=== PATIENT | male | born 1935 | race Caucasian/White ===

== ENCOUNTER 2016-06-09 17:57 | Inpatient (IN) | payer MEDICARE, BC, OTHER ==
[~2016-06-09] VITALS: Ht 190.5 cm; Wt 79.6 kg
[~2016-06-09 17:57] MED LIST: /NEPHROTA PO; /TIOT18INH INH; ACET-654 PO; AMIO20TA PO; AMOX500C PO; ANOR1AER INH; ASPI1TAB PO; ASPI325T PO; ASPI325T28 PO; CEFT250T PO; CETI10TA PO; CETI5TA PO; CRES5TAB PO; DIGO0.12 PO; DUONSOL IN; DUONSOL NEB; EPOG2000 IJ; EPOG2000 IVP; FLAG500T PO; IPRASOL4 INH; MULT1TAB18 PO; OMEP20CA3 PO; PANT40TA2 PO; PHOS667C PO; PREV15CA PO; ROSU10TA PO; SPIR1CAP INH; SPIRIVA INH; SYMB16INH INH; SYMB80AE IN; TOPR25TA PO; TYLE325T5 PO; VENO20IN IV; VITA-121 PO; VITA200016 PO; VITA200038 PO; VITATAB11 PO; ZITH250T PO; [UNRECOGNIZED DRUG - OTHER] PO; zemplar IV
[2016-06-09 19:45] LABS: EOS # 0.2 K/mm3 (0.0-0.50); EOS % 3.9 % (0.0-3.0); LARGE UNSTAINED CELL # 0.1 K/mm3 (0.0-0.4); LARGE UNSTAINED CELL % 2.5 % (0.0-4.0); LYMPH # 0.6 K/mm3 (1.5-4.5); LYMPH % 10.8 % (24.0-44.0); MEAN CORPUSCULAR HGB CONC 31.2 g/dl (32.0-36.5); MEAN CORPUSCULAR VOLUME 86.6 fl (80.0-96.0); MONO # 0.4 K/mm3 (0.0-0.8); MONO % 7.6 % (0.0-5.0); NEUTROPHILS # 3.8 K/mm3 (1.8-7.7); NEUTROPHILS % 74.2 % (36.0-66.0); PLATELET COUNT, AUTOMATED 137 k/mm3 (150-450); RED CELL DISTRIBUTION WIDTH 16.3 % (11.5-14.5); WHITE BLOOD COUNT 5.1 K/mm3 (4.0-10.0)
[2016-06-09] MEDS ORDERED: AMIO20TA PO (19:49)
[2016-06-09] MEDS ORDERED: B COTAB5 PO (19:49)
[2016-06-09] MEDS ORDERED: CALC667T PO (19:49)
[2016-06-09] MEDS ORDERED: IPRASOL4 INH (19:49)
[2016-06-09] MEDS ORDERED: PANT40TA2 PO (19:50)
[2016-06-09 20:04] LABS: ALBUMIN 3.1 GM/DL (3.2-5.2); ALBUMIN/GLOBULIN RATIO 0.84 (1.00-1.93); ALKALINE PHOSPHATASE 184 U/L (45-117); ALT/SGPT 49 U/L (12-78); ANION GAP 10 MEQ/L (8-16); AST/SGOT 39 U/L (15-37); BILIRUBIN,DIRECT < 0.1 MG/DL (0.0-0.2); BILIRUBIN,TOTAL 0.3 MG/DL (0.2-1.0); BLOOD UREA NITROGEN 37 MG/DL (7-18); CALCIUM LEVEL 8.1 MG/DL (8.8-10.2); CARBON DIOXIDE LEVEL 33 MEQ/L (21-32); CHLORIDE LEVEL 101 MEQ/L (98-107); GLOMERULAR FILTRATION RATE 9.3 (>35); GLUCOSE, FASTING 122 MG/DL (83-110); POTASSIUM SERUM 4.4 MEQ/L (3.5-5.1); SODIUM LEVEL 144 MEQ/L (136-145); TOTAL PROTEIN 6.8 GM/DL (6.4-8.2)
--- NOTE | 2016-06-09 20:21 | REP ---
CHEST X-RAY, AP AND LATERAL: 06/09/2016. Comparison: Two-view chest 09/17/2015, 04/06/2015, 11/14/2013, CT abdomen showing lower chest 10/27/2013. Clinical history: Dyspnea. Findings. Lungs are hyperinflated. There is underlying interstitial fibrosis and some venous hypertension. Heavier fibrosis in the bases and there is lateral pleural thickening or pleural fluid along the right lateral chest wall similar to the multiple other prior studies and left CP angle is sharply defined while the right is slightly blunted as before. Heart is not grossly enlarged. The aorta is tortuous, ectatic and unchanged. There is pulmonary artery hypertension. Degenerative changes seen in the shoulders, AC joint and spine. Impression: 1. No cardiomegaly, but there is some venous hypertension, underlying fibrosis and heavier markings in the right than left base. Bibasilar patchy atelectasis or infiltrates, right greater than left. There is lateral pleural thickening/fluid on the right as seen on multiple prior studies. No definite left effusion. Signed by Eze Ahn MD 06/10/2016 05:48 P
[2016-06-10] VITALS (7 sets, daily range): BP systolic 112–141; BP diastolic 49–64
[2016-06-10] MEDS ORDERED: IPRATROPIUM 0.5MG/ALBUTEROL 2.5MG INH SOL UD 3ML (DUONEB)(J7620) INH PRN (00:30)
--- NOTE | 2016-06-10 01:16 | EDDOCDS ---
Physician Documentation [facility], [place] Name: Nj Chamberlain Age: 80 yrs Sex: Male : 1935 Arrival Date: 06/09/2016 Time: 17:57 Bed 14 Private MD: Stewart Everett Disposition: 06/09/16 20:56 Hospitalization ordered by Clare Wadsworth for Inpatient Admission. Preliminary diagnosis are Hemorrhage of anus and rectum, Acute combined systolic (congestive) and diastolic (congestive) heart failure. - Bed requested for PCU. - Status is Inpatient Admission. mgs - Condition is Stable. - Problem is an ongoing problem. - Symptoms are unchanged. Historical: - Allergies: Adhesives; Neosporin ([id number]); Zocor; - Home Meds: 1. [place] with Vit C 1 tab daily 2. amiodarone 200 mg Oral tab 1 tab once daily 3. aspirin 81 mg Oral tab 1 tab once daily 4. Crestor 10 mg Oral tab 1 tab once daily 5. DuoNeb 0.5 mg-3 mg(2.5 mg base)/3 mL Inhl nebu 3 mL 4 times per day 6. PhosLo 667 mg Oral cap 1 caps 3 times per day 7. anoro inhaler 8. Vitamin D3 2,000 unit oral cap 1 cap daily 9. esomeprazole magnesium 20 mg Oral cpDR 1 cap 2 times per day 10. Procrit Inj 11. vitamin d infusion - PMHx: Anemia; Atrial Fib; CAD; COPD; Degenerative disc disease; GERD; hyperlipidemia; Myocardial infarction; Osteoarthritis; Renal Failure with Dialysis; Sleep Apnea w/o CPAP; - PSHx: Carotid surgery; Cardiac stents; dialysis fistula; cardiac cath; Ablation, Cardiac; Tonsillectomy; - Social history: Smoking status: Patient/guardian denies using No barriers to communication noted, The patient speaks fluent Cypriot. - Family history: Not pertinent. - : The pt / caregiver states he / she is not on anticoagulants. Home medication list is obtained from the patient, [employer] import data. - Exposure Risk Screening:: None identified. Vital Signs: 06/09 17:59 BP 112 / 60; Pulse 79; Resp 18 S; Temp 98.3(O); Pulse Ox 95% on R/A; Weight 80.29 kg / gr2 177.01 lbs (R); Height 6 ft. 3 in. (190.50 cm) (R); Pain 2/10; 19:25 BP 126 / 61 (auto/); mgs 19:26 Pulse 66 MON; Pulse Ox 95% ; mgs 19:40 BP 128 / 56 (auto/); mgs 19:43 Pulse Ox 94% ; mgs 19:54 Pulse 56 MON; Pulse Ox 93% ; mgs 19:55 BP 122 / 59 (auto/); mgs 20:10 BP 124 / 58 (auto/); mgs 20:10 Pulse 54 MON; Pulse Ox 93% ; mgs 20:25 BP 122 / 60 (auto/); mgs 20:25 Pulse 54 MON; Pulse Ox 93% ; mgs 20:40 BP 117 / 56 (auto/); mgs 20:40 Pulse 52 MON; Pulse Ox 93% ; mgs 20:55 BP 133 / 61 (auto/); mgs 20:55 Pulse 52 MON; Pulse Ox 92% ; mgs 21:10 BP 126 / 61 (auto/); mgs 21:10 Pulse 50 MON; Pulse Ox 93% ; mgs 21:25 BP 127 / 59 (auto/); mgs 21:25 Pulse 50 MON; Pulse Ox 93% ; mgs 21:40 BP 123 / 58 (auto/); mgs 21:40 Pulse 50 MON; Pulse Ox 92% ; mgs 21:55 BP 113 / 56 (auto/); mgs 21:55 Pulse 50 MON; Pulse Ox 93% ; mgs 22:10 BP 116 / 56 (auto/); mgs 22:10 Pulse 50 MON; Pulse Ox 93% ; mgs 22:25 BP 138 / 65 (auto/); mgs 22:25 Pulse 50 MON; Pulse Ox 93% ; mgs 22:40 Pulse 50 MON; Pulse Ox 97% ; mgs 22:40 BP 118 / 56 (auto/); mgs 22:55 BP 129 / 61 (auto/); mgs 22:55 Pulse 50 MON; Pulse Ox 97% ; mgs 23:10 BP 135 / 60 (auto/); mgs 23:10 Pulse 50 MON; Pulse Ox 96% ; mgs 23:25 BP 116 / 56 (auto/); mgs 23:25 Pulse 52 MON; Pulse Ox 97% ; mgs 23:40 BP 123 / 54 (auto/); mgs 23:40 Pulse 52 MON; Pulse Ox 97% ; mgs 23:55 BP 126 / 58 (auto/); mgs 23:55 Pulse 48 MON; Pulse Ox 95% ; mgs 06/10 00:10 BP 137 / 65 (auto/); mgs 00:10 Pulse 50 MON; Pulse Ox 95% ; mgs 00:25 BP 134 / 62 (auto/); mgs 00:25 Pulse 50 MON; Pulse Ox 96% ; mgs 00:34 BP 134 / 62 RA Supine (auto/reg); Pulse 52 MON; Resp 18 S; Temp 97.0(T); Pulse Ox 97% cln on R/A; Pain 0/10; 00:40 BP 127 / 59 (auto/); mgs 00:40 Pulse 50 MON; Pulse Ox 83% ; mgs 00:55 BP 133 / 62 (auto/); mgs 00:55 Pulse 48 MON; Pulse Ox 96% ; mgs 01:10 BP 109 / 48 (auto/); mgs 01:10 Pulse 48 MON; Pulse Ox 95% ; mgs 06/09 17:59 Body Mass Index 22.12 (80.29 kg, 190.50 cm) gr2 MDM: 06/09 19:14 -Blood Culture (Adults Only), peripheral from different site, or from device/port/PICC ke etc. if present ordered. 19:14 Hose Finisher/Pulse Ox/q 15 min VS ordered. ke 19:14 IV Saline Lock ordered. ke 19:14 Oxygen at 4L/Min NC or Home dosage ordered. ke 19:14 Rhythm Strip to chart ordered. ke 19:14 NS 0.9% 1000 ml IV at 100 mL/hr continuous ordered. ke 19:15 Type & Screen Ordered. EDMS 19:15 Basic Metabolic Profile Ordered. EDMS 19:15 CBC with Diff Ordered. EDMS 19:15 Cardiac Injury Profile Ordered. EDMS 19:15 Troponin Ordered. EDMS 19:15 PT/INR Ordered. EDMS 19:15 Liver Profile Ordered. EDMS 19:15 BNP Ordered. EDMS 19:16 -Blood Culture Ordered. EDMS 19:16 Chest, 2 View (pa\E\lat) Ordered. EDMS 19:16 ECG WITH READING ER PHYS+CARDIAG ordered. EDMS 19:18 -Blood Culture (Adults Only), peripheral from different site, or from device/port/PICC ml3 etc. if present complete. 19:19 BLOOD CULTURES Ordered. EDMS 19:19 BED REQUEST+ADM ordered. EDMS 20:37 Basic Metabolic Profile Reviewed. ke 20:37 CBC with Diff Reviewed. ke 20:37 Liver Profile Reviewed. ke 20:37 BNP Reviewed. ke 20:37 Cardiac Injury Profile Reviewed. ke 20:37 Troponin Reviewed. ke 20:37 PT/INR Reviewed. ke 20:37 Type & Screen Reviewed. ke 23:24 Written Provider Order was scanned into [employer] and attached to record. ml3 23:35 Financial registration complete. hs2 23:51 [facility] Payment Agreement was scanned into [employer] and attached to record. hs2 06/10 00:02 Admission / Observation Status ordered. EDMS 00:25 CLEAR LIQUIDS DIET ordered. EDMS 00:26 HEMOGLOBIN & HEMATOCRIT Ordered. EDMS 00:26 COMPLETE BLOOD COUNT Ordered. EDMS 00:26 RENAL PROFILE Ordered. EDMS 00:26 HEMOGLOBIN & HEMATOCRIT Ordered. EDMS 00:26 HEMOGLOBIN & HEMATOCRIT Ordered. EDMS 00:26 HEMOGLOBIN & HEMATOCRIT Ordered. EDMS 00:26 CARDIAC MARKER PANEL Ordered. EDMS 00:26 CARDIAC MARKER PANEL Ordered. EDMS Administered Medications: Discontinued: NS 0.9% 1000 ml IV at 100 mL/hr continuous 06/09 20:00 Drug: NS 0.9% 1000 ml [sodium chloride 0.9 % intravenous solution] Route: IV; Rate: 100 mgs mL/hr; Site: right antecubital; Signatures: Dispatcher [employer] EDWA Lizzie Flynn RN RN dls Elsner, Karl, FNP CREDIT RISK MODELER Tamy Romeo, Software Test Developer Unit ml3 Faisal Fabian,APOORVA RN mgs Estela Sanders, Reg Reg hs2 The chart was reviewed and I authenticate all verbal orders and agree with the evaluation and treatment provided.Attachments: 23:24 Written Provider Order ml3 23:51 [facility] Payment Agreement hs2 MTDD
--- NOTE | 2016-06-10 01:16 | HPEPDOC ---
General Date of Admission Jun 10, 2016 at 00:00 Chief Complaint The patient is a 80-year-old male admitted with a reason for visit of Bright Red Blood Per Rectum. Source: Patient Exam Limitations: No limitations History of Present Illness PCP: Stewart Everett in [facility] Nephrology: [place] Cardiology: [facility] on [address] Mr. Chamberlain has not been feeling well since approximately last Thursday. He has been suffering from generalized malaise and a nonproductive cough. He does state that his cough and shortness of breath gets worse with laying down, and ever since his cough started he is also woken up during the night a few times gasping for air. This continued through the weekend, he still presented for dialysis earlier this morning which he states when well. 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 En route to the hospital he decided to stop by home where he had a completely liquid bowel movement, which as it turns out was all blood. Since he was already on his way to the emergency department, he also presents for acute GI bleed. 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 He has had GI bleeds in the past, but these have never been so severe as the one today. He has not had a bowel movement since approximately 4 PM, his vitals are stable, and his H&H at this time is one of the best that he has had in years. Home Medications Scheduled (Anoro Ellipta 62.5-25 Mcg/INH) 1 Aer Aer 1 AER INH DAILY (Reported) Amiodarone HCl (Amiodarone HCl) 200 Mg Tab 200 MG PO DAILY (Reported) Aspirin (Aspirin 81) 81 Mg Tab 81 MG PO QHS (Reported) Calcium Acetate (Calcium Acetate) 667 Mg Tab 667 MG PO WM (Reported) Cholecalciferol (Vitamin D-3) 2,000 Unit Tab 2,000 UNIT PO DAILY (Reported) Epoetin Sandeep (Epogen) 2,000 Unit/Ml Inj 1,000 UNIT IJ 1XWK (Reported) Pantoprazole Sodium (Pantoprazole Sodium) 40 Mg Tab 40 MG PO BID (Reported) Rosuvastatin (Crestor) 10 Mg Tab 10 MG PO QHS (Reported) Vitamin B Complex/Vit C (B Complex/C) 1 Tab Tab 1 TAB PO DAILY (Reported) Scheduled PRN Albuterol/Ipratropium (Ipratropium [place]/Albut 0.5-2.5 (3) mg/3Ml) 1 Cecilia Cecilia 1 CECILIA INH QID PRN PRN SHORTNESS OF BREATH (Reported) Allergies Coded Allergies: Latex (Verified Allergy, Unknown, 02/07/16) Aminoglycosides (Verified Adverse Reaction, Mild, IRRITATES SKIN, 08/14/12) Bacitracin (Verified Adverse Reaction, Mild, IRRITATES SKIN, 08/14/12) Neomycin (Verified Adverse Reaction, Mild, IRRITATES SKIN, 08/14/12) Polymyxin B (Verified Adverse Reaction, Mild, IRRITATES SKIN, 08/14/12) Simvastatin (Verified Adverse Reaction, Mild, DOES NOT FEEL GOOD, 09/07/13) Past Medical History Medical History End-stage renal disease on dialysis Anemia of chronic disease with as needed Procrit injections Known coronary artery disease COPD "Aortic valve problems" Degenerative disc disease GERD Hyperlipidemia History of silent myocardial infarction Osteoarthritis Sleep apnea, but refuses to wear CPAP Surgical History Carotid endarterectomy Cardiac catheterization with Cardiac stents Dialysis fistula Cardiac ablation for atrial fibrillation with RVR Tonsillectomy Bilateral cataracts Family History Family History Mother at the age of 83 from CHF, father at the age of 48 because he had what was suspected to be a thyroid tumor, he was started on a experimental treatment that ended in his demise. He has 2 sisters, both of whom had lung diseases. He has one brother who at the age of 85 who also is on dialysis and had an ileostomy. Social History * Smoker: former Smoker (quit in 2012, prior to that he smoked for 60+ years approximately 2 packs per day) Alcohol: rarely Drugs: denies Recent Travel/Sick Contacts: Denies: Recent travel Psychosocial History: No pertinent psych hx Social History He lives at home with his , 2 dogs, and one cat. He does not have any birds. Review of Symptoms Constitutional: Reports: Fatigue, Malaise, Night Sweats, Weakness, Denies: Chills, Fever Eyes: Denies: Pain, Vision change Skin: Denies: Breakdown, Lesions, Rash Pulmonary: Reports: Cough (nonproductive), Dyspnea Cardiovascular: Reports: Edema (chronically, this comes and goes as he gets dialysis), Orthopnea, Paroxysmal Noc. Dyspnea, Denies: Chest Pain, Lt Headedness, Palpitations Gastrointestinal: Denies: Abdominal Pain, Diarrhea, Nausea, Vomiting Genitourinary: Denies: Dysuria, Frequency, Incontinence, Retention Hematologic: Denies: Bleeding Excessively, Bruising Neurological: Denies: Change in speech, Confusion, Numbness, Weakness Psych: Reports: Mood Normal, Denies: Depression, Memory Issues Physical Examination General Exam: Positive: Alert, Cooperative, No Acute Distress Eye Exam: Positive: Conjunctiva & lids normal, EOMI, PERRLA, Negative: Sclera icteric ENT Exam: Positive: Atraumatic, Mucous membr. moist/pink, Other ENT (upper and lower dentures), Pharynx Normal Neck Exam: Positive: JVD, Supple, Negative: thyromegaly Chest Exam: Positive: Rales (at the bases) Heart Exam: Positive: Irregular Rhythm, Murmurs (systolic and diastolic murmurs ), Rate Normal Abdomen Exam: Positive: Normal bowel sounds, Soft, Negative: Hepatospenomegaly Extremity Exam: Positive: Normal pulses, Negative: Clubbing, Cyanosis, Edema Skin Exam: Positive: Nl turgor and temperature, Negative: Breakdown, Lesion Psych Exam: Positive: Mental status NL, Mood NL, Oriented x 3 Vital Signs Blood pressure 112/60, pulse 79, respirations 18, temperature 98.3, pulse ox is 95% on room air, weight 80 kg, height 6 feet 3 inches, body mass index 22 Laboratory Data Labs 24H Laboratory Tests 2 06/09/16 19:26: Aspartate Amino Transf (AST/SGOT) 39H, Alanine Aminotransferase (ALT/SGPT) 49, Alkaline Phosphatase 184H, Total Bilirubin 0.3, Direct Bilirubin < 0.1, Albumin 3.1L, Albumin/Globulin Ratio 0.84L, Anion Gap 10, B-Type Natriuretic Peptide 1560H, White Blood Count 5.1, Red Blood Count 4.50, Hemoglobin 12.1L, Hematocrit 39.0L, Mean Corpuscular Volume 86.6, Mean Corpuscular Hemoglobin 27.0 , Mean Corpuscular Hemoglobin Concent 31.2L, Red Cell Distribution Width 16.3H, Platelet Count 137L, Neutrophils (%) (Auto) 74.2H, Lymphocytes (%) (Auto) 10.8L , Monocytes (%) (Auto) 7.6H, Eosinophils (%) (Auto) 3.9H, Basophils (%) (Auto) 1.0, Neutrophils # (Auto) 3.8, Lymphocytes # (Auto) 0.6L, Monocytes # (Auto) 0.4 , Eosinophils # (Auto) 0.2, Basophils # (Auto) 0.0, Calcium Level 8.1L, Creatine Kinase MB 2.4, Creatine Kinase MB Relative Index 3.75, Glomerular Filtration Rate 9.3L, Large Unclassified Cells # 0.1, Large Unclassified Cells % 2.5, Prothromb Time International Ratio 1.00, Prothrombin Time 13.3, Total Creatine Kinase 64, Total Protein 6.8, Troponin I 0.04 CBC/BMP Laboratory Tests 06/09/16 19:26 Red Blood Count 4.50, Mean Corpuscular Volume 86.6, Mean Corpuscular Hemoglobin 27.0, Mean Corpuscular Hemoglobin Concent 31.2 L, Red Cell Distribution Width 16.3 H, Neutrophils (%) (Auto) 74.2 H, Lymphocytes (%) (Auto) 10.8 L, Monocytes (%) (Auto) 7.6 H, Eosinophils (%) (Auto) 3.9 H, Basophils (%) (Auto) 1.0, Neutrophils # (Auto) 3.8, Lymphocytes # (Auto) 0.6 L, Monocytes # (Auto) 0.4, Eosinophils # (Auto) 0.2, Basophils # (Auto) 0.0 Microbiology Microbiology 06/09/16 Blood Culture, Received Pending 06/09/16 Blood Culture, Received Pending (1) BRBPR (bright red blood per rectum) Status: Acute (2) Fluid overload Status: Acute (3) ESRD (end stage renal disease) on dialysis Status: Chronic (4) Systolic and diastolic CHF, chronic Status: Chronic (5) COPD (chronic obstructive pulmonary disease) Status: Chronic (6) Hyperlipidemia Status: Chronic (7) Afib Status: Chronic (8) Anemia Status: Chronic Plan / VTE VTE Prophylaxis Ordered?: Yes (teds and sequentials) Plan Plan Will admit the patient to telemetry. In regards to his episode of bright red blood per rectum, we'll cycle his troponins, check H&H every 6, place him on twice a day IV Protonix, we have very spoken with Dr. Lucas harris who will see and evaluate the patient, he suspects that he may be able to do a colonoscopy on Thursday. Because he has not had any additional episodes, and his hematocrit is good, and his blood pressure is holding up, we will allow him to attempt a clear liquid diet. In regard to his fluid overload, we will be unable to diuresis this patient as he is on dialysis, therefore recommend consult to nephrology in the morning. I see no need for urgent or emergent dialysis at this time. Given that he does not have a fever, productive cough, or leukocytosis this does not appear to be a pneumonia, therefore empiric antibiotics will not be administered at this time. He is full code. GME ATTESTATION GME ATTESTATION My preceptor for this patient encounter was physically present in the building during the encounter and was fully available. As needed, all aspects of the patient interview, examination, medical decision making process, and medical care plan development were reviewed and approved by the preceptor. Preceptor is aware and concurs with the plan as stated in the body of this note and will attest to such by his/her cosignature. ATTENDING NOTE I, Clare Wadsworth, have seen and examined the above patient and agree with the assessment and plan as documented by Dr. Cisse. The patient will be admitted as an inpatient to the service of Dr. Rajan. YELITZA CISSE DO Jun 10, 2016 01:16 CLARE WADSWORTH Jun 10, 2016 02:57
--- NOTE | 2016-06-10 01:17 | EDDOCDS ---
Nurse's Notes [facility] Name: Nj Chamberlain Age: 80 yrs Sex: Male : 1935 Arrival Date: 06/09/2016 Time: 17:57 Bed 14 Private MD: Stewart Everett Diagnosis: Hemorrhage of anus and rectum;Acute combined systolic (congestive) and diastolic (congestive) heart failure Presentation: 06/09 18:03 Presenting complaint: Patient states: Pt presents with onset of rectal bleeding this dls afternoon lots of blood in toilet bowl dark red. Adult Sepsis Screening: The patient does not have new or worsening altered mentation. Patient's respiratory rate is less than 22. Systolic blood pressure is greater than 100. Patient has a qSOFA score of 0- Negative Sepsis Screen. Suicide/Homicide risk assessment- the patient denies having any suicidal and/or homicidal ideations and does not present with any other emotional, behavioral or mental health complaints. Status: Patient is not a electric range servicer or dependent. Transition of care: patient was not received from another setting of care. 18:03 Acuity: SHANNAN Level 3 dls 18:03 Method Of Arrival: Wheelchair dls 18:27 Red Flag criteria, patient assessed and taken directly to a bed. dls Triage Assessment: 18:10 General: Appears uncomfortable. Pain: Denies pain. dls Historical: - Allergies: Adhesives; Neosporin ([id number]); Zocor; - Home Meds: 1. [place] with Vit C 1 tab daily 2. amiodarone 200 mg Oral tab 1 tab once daily 3. aspirin 81 mg Oral tab 1 tab once daily 4. Crestor 10 mg Oral tab 1 tab once daily 5. DuoNeb 0.5 mg-3 mg(2.5 mg base)/3 mL Inhl nebu 3 mL 4 times per day 6. PhosLo 667 mg Oral cap 1 caps 3 times per day 7. anoro inhaler 8. Vitamin D3 2,000 unit oral cap 1 cap daily 9. esomeprazole magnesium 20 mg Oral cpDR 1 cap 2 times per day 10. Procrit Inj 11. vitamin d infusion - PMHx: Anemia; Atrial Fib; CAD; COPD; Degenerative disc disease; GERD; hyperlipidemia; Myocardial infarction; Osteoarthritis; Renal Failure with Dialysis; Sleep Apnea w/o CPAP; - PSHx: Carotid surgery; Cardiac stents; dialysis fistula; cardiac cath; Ablation, Cardiac; Tonsillectomy; - Social history: Smoking status: Patient/guardian denies using No barriers to communication noted, The patient speaks fluent [place]. - Family history: Not pertinent. - : The pt / caregiver states he / she is not on anticoagulants. Home medication list is obtained from the patient, [employer] import data. - Exposure Risk Screening:: None identified. Screenin:03 Screening information is obtained from the patient. Fall risk: At risk due to age. mgs Assistance ADL's: requires no assistance with activities of daily living. Abuse/DV Screen: The patient / caregiver reports he/she is: not in a situation that causes fear, pain or injury. Nutritional screening: No deficits noted. Advance Directives: Currently, there is a health care proxy, Jennifer Chamberlain, . There is an active DNR order but there is no copy available at this time. home support is adequate. Assessment: 19:04 Adult Sepsis Screening: The patient does not have new or worsening altered mentation. mgs Patient's respiratory rate is less than 22. Systolic blood pressure is less than or equal to 100 (1 point). Patient has a qSOFA score of 1- Negative Sepsis Screen. General: Appears in no apparent distress, Behavior is appropriate for age, cooperative. Pain: Denies pain. Neurological: Level of Consciousness is awake, alert, Oriented to person, place, time. Cardiovascular: Capillary refill < 3 seconds Heart tones S1 S2 present Murmur present. Respiratory: Airway is patent Respiratory effort is even, unlabored, Respiratory pattern is regular, symmetrical. Derm: Skin is intact. 20:03 General: Appears in no apparent distress, Behavior is appropriate for age, cooperative. mgs Pain: Denies pain. Neurological: Level of Consciousness is awake, alert, Oriented to person, place, time. Cardiovascular: Capillary refill < 3 seconds. Respiratory: Airway is patent Respiratory effort is even, unlabored, Respiratory pattern is regular, symmetrical. Derm: Skin is intact. 20:49 General: Appears in no apparent distress, Behavior is appropriate for age, cooperative. mgs Neurological: Level of Consciousness is awake, alert, Oriented to person, place, time. Cardiovascular: Capillary refill < 3 seconds. Respiratory: Airway is patent Respiratory effort is even, unlabored, Respiratory pattern is regular, symmetrical. 20:50 General: Patient has AV fistula on left upper arm that is positive for bruit and thrill.mgs 21:48 General: Appears in no apparent distress, Behavior is appropriate for age, cooperative. mgs Neurological: Level of Consciousness is awake, alert. Cardiovascular: Capillary refill < 3 seconds. Respiratory: Airway is patent Respiratory effort is even, unlabored, Respiratory pattern is regular, symmetrical. Derm: Skin is intact. 06/10 00:15 General: Appears in no apparent distress, to be sleeping. Cardiovascular: Capillary mgs refill < 3 seconds. Respiratory: Airway is patent Respiratory effort is even, unlabored, Respiratory pattern is regular, symmetrical. Derm: Skin is intact. Vital Signs: 06/09 17:59 BP 112 / 60; Pulse 79; Resp 18 S; Temp 98.3(O); Pulse Ox 95% on R/A; Weight 80.29 kg gr2 (R); Height 6 ft. 3 in. (190.50 cm) (R); Pain 2/10; 19:25 BP 126 / 61 (auto/); mgs 19:26 Pulse 66 MON; Pulse Ox 95% ; mgs 19:40 BP 128 / 56 (auto/); mgs 19:43 Pulse Ox 94% ; mgs 19:54 Pulse 56 MON; Pulse Ox 93% ; mgs 19:55 BP 122 / 59 (auto/); mgs 20:10 BP 124 / 58 (auto/); mgs 20:10 Pulse 54 MON; Pulse Ox 93% ; mgs 20:25 BP 122 / 60 (auto/); mgs 20:25 Pulse 54 MON; Pulse Ox 93% ; mgs 20:40 BP 117 / 56 (auto/); mgs 20:40 Pulse 52 MON; Pulse Ox 93% ; mgs 20:55 BP 133 / 61 (auto/); mgs 20:55 Pulse 52 MON; Pulse Ox 92% ; mgs 21:10 BP 126 / 61 (auto/); mgs 21:10 Pulse 50 MON; Pulse Ox 93% ; mgs 21:25 BP 127 / 59 (auto/); mgs 21:25 Pulse 50 MON; Pulse Ox 93% ; mgs 21:40 BP 123 / 58 (auto/); mgs 21:40 Pulse 50 MON; Pulse Ox 92% ; mgs 21:55 BP 113 / 56 (auto/); mgs 21:55 Pulse 50 MON; Pulse Ox 93% ; mgs 22:10 BP 116 / 56 (auto/); mgs 22:10 Pulse 50 MON; Pulse Ox 93% ; mgs 22:25 BP 138 / 65 (auto/); mgs 22:25 Pulse 50 MON; Pulse Ox 93% ; mgs 22:40 Pulse 50 MON; Pulse Ox 97% ; mgs 22:40 BP 118 / 56 (auto/); mgs 22:55 BP 129 / 61 (auto/); mgs 22:55 Pulse 50 MON; Pulse Ox 97% ; mgs 23:10 BP 135 / 60 (auto/); mgs 23:10 Pulse 50 MON; Pulse Ox 96% ; mgs 23:25 BP 116 / 56 (auto/); mgs 23:25 Pulse 52 MON; Pulse Ox 97% ; mgs 23:40 BP 123 / 54 (auto/); mgs 23:40 Pulse 52 MON; Pulse Ox 97% ; mgs 23:55 BP 126 / 58 (auto/); mgs 23:55 Pulse 48 MON; Pulse Ox 95% ; mgs 06/10 00:10 BP 137 / 65 (auto/); mgs 00:10 Pulse 50 MON; Pulse Ox 95% ; mgs 00:25 BP 134 / 62 (auto/); mgs 00:25 Pulse 50 MON; Pulse Ox 96% ; mgs 00:34 BP 134 / 62 RA Supine (auto/reg); Pulse 52 MON; Resp 18 S; Temp 97.0(T); Pulse Ox 97% cln on R/A; Pain 0/10; 00:40 BP 127 / 59 (auto/); mgs 00:40 Pulse 50 MON; Pulse Ox 83% ; mgs 00:55 BP 133 / 62 (auto/); mgs 00:55 Pulse 48 MON; Pulse Ox 96% ; mgs 01:10 BP 109 / 48 (auto/); mgs 01:10 Pulse 48 MON; Pulse Ox 95% ; mgs 06/09 17:59 Body Mass Index 22.12 (80.29 kg, 190.50 cm) gr2 Vitals: 06/09 17:59 Log In Time: June 09, 2016 at 17:59. RN notified that patient meets Red Flag gr2 criteria. ED Course: 17:59 Patient visited by Jas Merino. gr2 17:59 Stewart Everett is Private Physician. gr2 17:59 Patient moved to Waiting gr2 18:01 Patient visited by Jas Merino. gr2 18:02 Patient visited by Jas Merino. gr2 18:02 Patient visited by Jas Merino. gr2 18:02 Patient moved to Pre RCE gr2 18:05 Triage Initiated dls 18:11 Patient moved to 14 dls 18:44 Patient visited by Anisha Santana RN. mk4 18:54 George Mcdowell FNP is PHCP. ke 18:54 Patient visited by George Mcdowell FNP. ke 18:54 Patient visited by George Mcdowell FNP. ke 18:56 Faisal Fabian,APOORVA is Primary Nurse. mgs 19:06 Patient visited by Faisal Fabian RN. mgs 19:20 Patient moved to Radiology sim 19:22 Patient visited by Narcisa Pozo PCA. cln 19:22 EKG done. (by ED staff). Reviewed by George OCASIO. cln 19:28 BNP Sent. mgs 19:28 Liver Profile Sent. mgs 19:28 Type & Screen Sent. mgs 19:28 PT/INR Sent. mgs 19:28 -Blood Culture Sent. mgs 19:28 Basic Metabolic Profile Sent. mgs 19:28 CBC with Diff Sent. mgs 19:28 Cardiac Injury Profile Sent. mgs 19:28 Troponin Sent. mgs 19:40 Patient moved to 14 sim 19:52 Patient visited by George Mcdowell FNP. ke 19:58 BLOOD CULTURES Sent. cln 20:03 Patient visited by Faisal Fabian RN. mgs 20:40 Patient visited by George Mcdowell FNP. ke 20:51 Patient visited by Faisal Fabian RN. mgs 20:53 Clare Wadsworth is Hospitalizing Provider. ke 20:53 Chest, 2 View (pa\E\lat) Returned. EDMS 22:26 Patient visited by Faisal Fabian RN. mgs 23:24 Written Provider Order was scanned into [employer] and attached to record. ml3 23:51 [facility] Payment Agreement was scanned into [employer] and attached to record. hs2 06/10 00:15 Patient visited by Faisal Fabian RN. mgs 00:34 Patient visited by Narcisa Pozo PCA. cln 01:11 Inserted saline lock: 20 gauge in right antecubital area and blood collected. The mgs patient tolerated the procedure well. No procedures done that require assistance. 01:12 The patient / caregiver is instructed regarding the plan of care and ED course. mgs Administered Medications: Discontinued: NS 0.9% 1000 ml IV at 100 mL/hr continuous 06/09 20:00 Drug: NS 0.9% 1000 ml [sodium chloride 0.9 % intravenous solution] Route: IV; Rate: 100 mgs mL/hr; Site: right antecubital; Order Results: Lab Order: Basic Metabolic Profile; SPEC'M 06/09/16 19:26 Test: GLUCOSE, FASTING; Value: 122; Range: 83-110; Abnormal: Above high normal; Units: MG/DL; Status: F Test: BLOOD UREA NITROGEN; Value: 37; Range: 7-18; Abnormal: Above high normal; Units: MG/DL; Status: F Test: CREATININE FOR GFR; Value: 6.20; Range: 0.70-1.30; Abnormal: Above high normal; Units: MG/DL; Status: F Test: GLOMERULAR FILTRATION RATE; Value: 9.3; Range: >35; Abnormal: Below low normal; Status: F Test: SODIUM LEVEL; Value: 144; Range: 136-145; Units: MEQ/L; Status: F Test: POTASSIUM SERUM; Value: 4.4; Range: 3.5-5.1; Units: MEQ/L; Status: F Test: CHLORIDE LEVEL; Value: 101; Range: 98-107; Units: MEQ/L; Status: F Test: CARBON DIOXIDE LEVEL; Value: 33; Range: 21-32; Abnormal: Above high normal; Units: MEQ/L; Status: F Test: ANION GAP; Value: 10; Range: 8-16; Units: MEQ/L; Status: F Test: CALCIUM LEVEL; Value: 8.1; Range: 8.8-10.2; Abnormal: Below low normal; Units: MG/DL; Status: F Test Note: ; Units are mL/min/1.73 m2 Chronic Kidney Disease Staging per NKF: Stage I & II GFR >=60 Normal to Mildly Decreased Stage III GFR 30-59 Moderately Decreased Stage IV GFR 15-29 Severely Decreased Stage V GFR <15 Very Little GFR Left ESRD GFR <15 on BAG LOADER MACHINE OPERATOR Lab Order: CBC with Diff; SPEC'M 06/09/16 19:26 Test: WHITE BLOOD COUNT; Value: 5.1; Range: 4.0-10.0; Units: K/mm3; Status: F Test: RED BLOOD COUNT; Value: 4.50; Range: 4.30-6.10; Units: M/mm3; Status: F Test: HEMOGLOBIN; Value: 12.1; Range: 14.0-18.0; Abnormal: Below low normal; Units: g/dl; Status: F Test: HEMATOCRIT; Value: 39.0; Range: 42.0-52.0; Abnormal: Below low normal; Units: %; Status: F Test: MEAN CORPUSCULAR VOLUME; Value: 86.6; Range: 80.0-96.0; Units: fl; Status: F Test: MEAN CORPUSCULAR HEMOGLOBIN; Value: 27.0; Range: 27.0-33.0; Units: pg; Status: F Test: MEAN CORPUSCULAR HGB CONC; Value: 31.2; Range: 32.0-36.5; Abnormal: Below low normal; Units: g/dl; Status: F Test: RED CELL DISTRIBUTION WIDTH; Value: 16.3; Range: 11.5-14.5; Abnormal: Above high normal; Units: %; Status: F Test: PLATELET COUNT, AUTOMATED; Value: 137; Range: 150-450; Abnormal: Below low normal; Units: k/mm3; Status: F Test: NEUTROPHILS %; Value: 74.2; Range: 36.0-66.0; Abnormal: Above high normal; Units: %; Status: F Test: LYMPH %; Value: 10.8; Range: 24.0-44.0; Abnormal: Below low normal; Units: %; Status: F Test: MONO %; Value: 7.6; Range: 0.0-5.0; Abnormal: Above high normal; Units: %; Status: F Test: EOS %; Value: 3.9; Range: 0.0-3.0; Abnormal: Above high normal; Units: %; Status: F Test: BASO %; Value: 1.0; Range: 0.0-1.0; Units: %; Status: F Test: LARGE UNSTAINED CELL %; Value: 2.5; Range: 0.0-4.0; Units: %; Status: F Test: NEUTROPHILS #; Value: 3.8; Range: 1.8-7.7; Units: K/mm3; Status: F Test: LYMPH #; Value: 0.6; Range: 1.5-4.5; Abnormal: Below low normal; Units: K/mm3; Status: F Test: MONO #; Value: 0.4; Range: 0.0-0.8; Units: K/mm3; Status: F Test: EOS #; Value: 0.2; Range: 0.0-0.50; Units: K/mm3; Status: F Test: BASO #; Value: 0.0; Range: 0.0-0.2; Units: K/mm3; Status: F Test: LARGE UNSTAINED CELL #; Value: 0.1; Range: 0.0-0.4; Units: K/mm3; Status: F Lab Order: Cardiac Injury Profile; SPEC'M 06/09/16 19:26 Test: CPK CREATINE PHOSPHOKINASE; Value: 64; Range: 39-308; Units: U/L; Status: F Test: CK-MB VALUE MASS; Value: 2.4; Range: 0.0-3.6; Units: NG/ML; Status: F Test: MB/CK RELATIVE INDEX; Value: 3.75; Range: < OR =4; Status: F Test Note: ; DIAGNOSIS CRITERIA MMB ng/ml Relative Index (RI) NON-AMI < or = 5 N/A SALAZAR ZONE > 5 < or = 4 AMI > 5 > 4 Lab Order: Troponin; SPEC'M 06/09/16 19:26 Test: TROPONIN I; Value: 0.04; Range: < 0.10; Units: NG/ML; Status: F Test Note: ; Troponin I Reference Interval for [employer] LOCI: 99th Percentile= 0.00-0.045 ng/ml Risk Stratification: <= 0.10 ng/ml Decreased Risk for Adverse Clinical Events. 0.10-1.50 ng/ml Increased Risk for Adverse Clinical Events. Evaluation of additional criterion and/or repeat testing in 2-6 hours is suggested to rule out myocardial damage. >= 1.50 ng/ml Indicative of Myocardial Injury. Lab Order: PT/INR; [facility] 06/09/16 19: Test: PROTHROMBIN TIME; Value: 13.3; Range: 12.3-14.5; Units: SECONDS; Status: F Test: INR; Value: 1.00; Status: F Test Note: ; THERAPUTIC HUMAN INR VALUES INDICATIONS NORMAL RANGES PROPHYLAXIS/TREATMENT OF: VENOUS THROMBOSIS 2.0-3.0 PULMONARY EMBOLISM 2.0-3.0 PREVENTION OF SYSTEMIC EMBOLISM FROM: TISSUE HEART VALVES 2.0-3.0 ACUTE MYOCARDIAL INFARCTION 2.0-3.0 VALVULAR HEART DISEASE 2.0-3.0 ATRIAL FIBRILLATION 2.0-3.0 MECHANICAL VALVES(HIGH RISK) 2.5-3.5 RECURRENT MYOCARDIAL INFARCTION 2.5-3.5 Lab Order: Type & Screen; [facility] 06/09/16 19: Test: BLOOD TYPE; Value: A NEG; Status: F Test: AB SCREEN (INDIRECT SOPHIA)GEL; Value: NEGATIVE; Status: F Lab Order: Liver Profile; [facility] 06/09/16 19: Test: AST/SGOT; Value: 39; Range: 15-37; Abnormal: Above high normal; Units: U/L; Status: F Test: ALT/SGPT; Value: 49; Range: 12-78; Units: U/L; Status: F Test: ALKALINE PHOSPHATASE; Value: 184; Range: 45-117; Abnormal: Above high normal; Units: U/L; Status: F Test: BILIRUBIN,TOTAL; Value: 0.3; Range: 0.2-1.0; Units: MG/DL; Status: F Test: BILIRUBIN,DIRECT; Value: < 0.1; Range: 0.0-0.2; Units: MG/DL; Status: F Test: TOTAL PROTEIN; Value: 6.8; Range: 6.4-8.2; Units: GM/DL; Status: F Test: ALBUMIN; Value: 3.1; Range: 3.2-5.2; Abnormal: Below low normal; Units: GM/DL; Status: F Test: ALBUMIN/GLOBULIN RATIO; Value: 0.84; Range: 1.00-1.93; Abnormal: Below low normal; Status: F Lab Order: BNP; SPEC'M 06/09/16 19:26 Test: BRAIN NATRIURETIC PEPTIDE; Value: 1560; Range: <100; Abnormal: Above high normal; Units: PG/ML; Status: F Lab Order: HEMOGLOBIN & HEMATOCRIT; SPEC'M 06/10/16 00:40 Test: HEMOGLOBIN; Value: 11.4; Range: 14.0-18.0; Abnormal: Below low normal; Units: g/dl; Status: F Test: HEMATOCRIT; Value: 36.1; Range: 42.0-52.0; Abnormal: Below low normal; Units: %; Status: F Radiology Order: Chest, 2 View (pa\E\lat) Test: Chest, 2 View (pa\E\lat) REASON FOR EXAMINATION: Shortness of Breath; CHEST X-RAY, AP AND LATERAL: 06/09/2016.; ; Comparison: Two-view chest 09/17/2015, 04/06/2015, 11/14/2013, CT abdomen showing; lower chest 10/27/2013.; ; Clinical history: Dyspnea.; ; Findings. Lungs are hyperinflated. There is underlying interstitial fibrosis; and some venous hypertension. Heavier fibrosis in the bases and there is lateral; pleural thickening or pleural fluid along the right lateral chest wall similar to; the multiple other prior studies and left CP angle is sharply defined while the; right is slightly blunted as before. Heart is not grossly enlarged. The aorta; is tortuous, ectatic and unchanged. There is pulmonary artery hypertension.; Degenerative changes seen in the shoulders, AC joint and spine.; ; Impression:; No cardiomegaly, but there is some venous hypertension, underlying fibrosis and; heavier markings in the right than left base. Bibasilar patchy atelectasis or; infiltrates, right greater than left. There is lateral pleural thickening/fluid; on the right as seen on multiple prior studies. No definite left effusion.; ; ; ; ; Unreviewed; Outcome: 20:56 Decision to Hospitalize by Provider. 06/10 01:11 Discharge Assessment: Patient awake, alert and oriented x 3. No cognitive and/or mgs functional deficits noted. Patient verbalized understanding of disposition instructions. patient administered narcotics - no. The following High Risk Discharge criteria are identified: None. Admitted to PCU accompanied by nurse, accompanied by tech, via stretcher, with oxygen, on monitor, with chart. Condition: stable. Property :Personal belongings accompany Pt. 01:12 No special radiology studies were completed. mgs 01:14 Patient left the ED. mgs Signatures: Dispatcher [employer] EDMS Lizzie Flynn, RN RN dls Christian Larios Karl, LOOM SETTER FOURDRINIER LOOM SETTER FOURDRINIER Tamy Romeo, Building Mover Unit ml3 Jas Merino gr2 Anisha Santana RN RN mk4 Faisal FabianRN RN mgs Estela Sanders, Reg Reg hs2 Narcisa Pozo, TONYA STROKE COORDINATOR cln MTDD
[2016-06-10] MEDS: PANTOPRAZOLE 40MG INJ (PROTONIX) (C9113) IV SCH ×3 (01:44→19:57)
[2016-06-10] MEDS: ASPIRIN 81 MG ENTERIC TAB PO SCH ×2 (01:44→19:58)
[2016-06-10] MEDS: ROSUVASTATIN 10 MG TAB (CRESTOR) PO SCH ×2 (01:44→19:58)
[2016-06-10] MEDS ORDERED: SLF 3 ML SYR IV PRN (02:00)
[2016-06-10] MEDS: SLF 3 ML SYR IV SCH ×3 (04:30→19:58)
[2016-06-10 05:51] LABS: MEAN CORPUSCULAR HEMOGLOBIN 27.5 pg (27.0-33.0); MEAN CORPUSCULAR HGB CONC 31.6 g/dl (32.0-36.5); MEAN CORPUSCULAR VOLUME 86.9 fl (80.0-96.0); RED CELL DISTRIBUTION WIDTH 17.9 % (11.5-14.5); WHITE BLOOD COUNT 5.6 K/mm3 (4.0-10.0)
[2016-06-10 05:54] LABS: ALBUMIN 2.7 GM/DL (3.2-5.2); CALCIUM LEVEL 7.6 MG/DL (8.8-10.2); CREATININE FOR GFR 7.01 MG/DL (0.70-1.30); GLOMERULAR FILTRATION RATE 8.1 (>35); PHOSPHORUS LEVEL 4.7 MG/DL (2.5-4.9); POTASSIUM SERUM 4.8 MEQ/L (3.5-5.1)
[2016-06-10] MEDS: CALCIUM ACETATE 667 MG GELCAP PO SCH ×3 (07:57→17:32)
[2016-06-10] MEDS: AMIODARONE 200 MG TAB (PACERONE) PO SCH (09:06)
[2016-06-10] MEDS: VITAMIN D 1,000 INTERNATIONAL UNITS TABLET PO SCH (09:06)
[2016-06-10] MEDS: VITAMIN B COMPLEX/VIT C CAP PO SCH (09:06)
--- NOTE | 2016-06-10 09:18 | IPN ---
DATE OF VISIT: 06/10/2016 SUBJECTIVE: Patient is seen and examined in the room today. The patient stated since admission he has not had any bowel movements. Yesterday he had significant blood per rectum that the whole toilet paper was stained and the stain was blood. This never happened before. He did have a colonoscopy done in April by the GI specialists and he was found to have multiple small oozing in the upper and lower GI tract. He was also found to have diverticulosis. At baseline, the patient does not need any oxygen. Yesterday, he did have desaturations at night and therefore he was placed on 1 liter nasal cannula. The patient does have a history of atrial fibrillation and multiple valvular disease and he thinks those contributed to his intermittent difficulty breathing. OBJECTIVE: VITAL SIGNS: Temperature 97, pulse is 55, respiratory rate is 18, blood pressure 122/50, pulse oximetry is 95% with 1 liter nasal cannula. GENERAL: Fatigued. No signs of acute distress. Alert and oriented times three. HEENT: Normocephalic, atraumatic. Extraocular motors grossly intact. CARDIOVASCULAR: Bradycardia with a rate around 48. Positive systolic murmur. RESPIRATORY: Positive wheezes bilaterally. No significant crackles. ABDOMEN: Soft, nontender, nondistended. Bowel sounds present. No rebound. No guarding. EXTREMITIES: No edema. No signs of cyanosis. LABORATORY DATA: WBC 5.6, hemoglobin 10.8, hematocrit 34.1, platelet count is 135. Sodium is 144, potassium 4.8, chloride 104, carbon dioxide 29, BUN 48, creatinine 7.01, GFR is 8.1, fasting glucose 87, calcium is 7.6, phosphorous 4.7 , total CK is 91, Troponin I is 0.05, albumin is 2.7. ASSESSMENT/PLAN: 1. Blood per rectum. The patient has dropped hemoglobin and hematocrit. Most recent hemoglobin is 10.8, hematocrit 34.1. Will continue to follow hemoglobin and hematocrit. General surgeon, Dr. Marrufo is consulted. Patient may be going for a colonoscopy tomorrow. I discussed with the patient if he starts to develop symptoms from anemia or hemoglobin and hematocrit drops down and continues to decrease, the patient may need a blood transfusion. 2. End stage renal disease. Patient is on a dialysis schedule on Thursday, Thursday, and Thursday. Dr. Nabila is consulted. 3. History of chronic obstructive pulmonary disease (COPD). Currently compensated. 4. Sleep apnea. non-compliant with CPAP. 5. History of anemia of chronic disease. Was on Procrit. 6. History of coronary artery disease. On aspirin and Crestor. 7. Atrial fibrillation. On amiodarone 200 mg by mouth daily. 8. History of systolic and diastolic congestive heart failure (CHF), currently compensated. 9. Hyperlipidemia. On statin. 10. Deep vein thrombosis (DVT) prophylaxis. Currently has GI bleeding, on thromboembolic deterrent stockings (TEDS) and sequential compression devices (SCD). MTDD
[2016-06-10] MEDS: NS 1,000 ML IV SCH (13:49)
--- NOTE | 2016-06-10 14:20 | CR ---
DATE OF CONSULTATION: 06/10/2016 at 1400 hours REASON FOR CONSULTATION: Bright red blood per rectum. HISTORY OF PRESENT ILLNESS: For full history and physical (H and P), please review my office generated H and P that will be faxed and scanned on the hospital chart. BRIEF SUMMARY: Mr. Chamberlain is well-known to me with a history of critical aortic stenosis, coronary artery disease and atrial fibrillation. He is also on chronic hemodialysis. 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 He is known to have chronic low grade GI blood loss. He is generally constipated and does not typically see any bright red blood in his stool. His anemia is being monitored in hemodialysis and managed with transfusion and iron infusion on an as-needed basis. The patient presents with new-onset, large volume, acute bright red blood per rectum without any abdominal pain and a 1 gram decrease in hemoglobin from recent baseline. The patient has had a EGD and colonoscopy times three over the recent past showing severe diverticulosis, moderate hemorrhoids and 2 small colonic, and numreous small gastric vascular ectasias which were treated with APC. IMPRESSION: 1. Acute "painless" lower GI bleeding. I suspect diverticular bleeding (versus hemorrhoidal bleeding). At this time, would recommend monitoring H and H, transfuse as needed (p.r.n.). A repeat colonoscopy at this time is not indicated as this was just completed recently. There was no evidence of any tumors or cancers or any other causes for his lower GI bleeding other than the possibility of diverticular bleeding which is typically selflimited. 2. 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 This at this point is being managed by iron infusion in dialysis. While this may be responsible for his low grade anemia, this is not responsible for the acute bleed that he presents with today. I would continue avoiding nonsteroidal analgesics, anticoagulants and antiplatelet agents. (If acute GI hemorrhage does not spontaneously stop, then I think it would be reasonable to intervene, either via colonoscopy or via IR/angiogram, however at this time, we will hopefully just monitor, till the diverticular bleed ceases spontaneously.) [facility]
[2016-06-10] MEDS: cefTRIAXone SOD 2 GM in D5W MINI-BAG PLUS 50 ML IV SCH (17:32)
--- NOTE | 2016-06-10 17:53 | CR.PDOC ---
[facility] Consultation Consultation DATE OF ADMISSION: 06/10/2016 DATE OF CONSULTATION: 06/10/2016 ATTENDING PHYSICIAN: Dr. Lizbeth Rajan CONSULTING PHYSICIAN: Dr. Brenda Dahl REASON FOR CONSULTATION: End stage renal disease on hemodialysis. HISTORY OF PRESENT ILLNESS: Mr. Chamberlain is a 80-year-old male with past medical history significant for end-stage renal disease on hemodialysis Thursday, Thursday, Thursday, coronary artery disease, atrial fibrillation, COPD, GERD, aortic valve disease, anemia of chronic renal disease, hyperlipidemia, obstructive sleep apnea noncompliant with CPAP, degenerative disc disease who presents today to the emergency department not feeling well. Patient states that starting of last week, he started to have shakes and sweats. He said that his symptoms progressed on Thursday, to where he developed headache, unsteadiness on his feet and generalized weakness. He also complained of increased shortness of breath from his baseline. He reports that he went to his bromination equipment operator's office yesterday and had a chest x-ray and EKG done. He reports that the EKG was okay but that the bromination equipment operator suspected pneumonia and recommended that he come to the emergency department for further evaluation. He stated that he stopped home briefly before coming to the hospital and that is when he had a bloody bowel movement. He reports that he has had blood in his stool before but not to this extent. He has had multiple colonoscopies and upper endoscopies in the past with history of vascular ectasia and diverticulosis. He had another large bloody bowel movement this morning. Hemoglobin has trended downwards. He does not have any other GI complaints such as nausea, vomiting or abdominal pain. No chest pain, pressure or palpitations. No dizziness. He had his normal dialysis yesterday where 4 L was removed. Nephrology consult was requested secondary to patient being end-stage renal disease and needing maintenance dialysis. PAST MEDICAL HISTORY: 1. End-stage renal disease on hemodialysis Thursday, Thursday, Thursday 2. Coronary artery disease with history of silent [place] 3. Chronic obstructive pulmonary disease 4. Hyperlipidemia 5. History of atrial fibrillation 6. Aortic valve disease 7. Anemia in chronic renal disease 8. History of heart failure 9. Obstructive sleep apnea, noncompliant with CPAP 10. Osteoarthritis 11. GERD PAST SURGICAL HISTORY: 1. Carotid endarterectomy 2. Cardiac stenting 3. AV fistula 4. Cardiac ablation for atrial fibrillation 5. Bilateral cataract surgery 6. Tonsillectomy ALLERGIES: Aminoglycosides, bacitracin, neomycin, polymyxin B, simvastatin, Latex HOME MEDICATIONS: Please see below. FAMILY HISTORY: He has a brother who was on dialysis, at age 85. Mother had history of heart failure. He has sister with lung disease. SOCIAL HISTORY: Patient is a former smoker, quit in 2011. Reports smoking for about 60 years. Rare alcohol. No illicit drugs. He lives at home with his . REVIEW OF SYSTEMS: CONSTITUTIONAL: Reports generalized weakness and fatigue. No fever or chills. HEENT: No headache, lightheadedness or dizziness. No acute changes to vision or hearing. CARDIOVASCULAR: Denies chest pain, chest pressure or palpitations. Admits to worsening shortness of breath. RESPIRATORY: Positive for increased shortness of breath and nonproductive cough. GENITOURINARY: No change in urinary frequency. He does not urinate much. No dysuria. MUSCULOSKELETAL: No unusual muscle or joint pains. GASTROINTESTINAL: Positive for large bloody bowel movement. No nausea, vomiting , diarrhea, abdominal pain. SKIN: No unusual rashes or skin lesions. NEUROLOGICAL: No syncope. No paresthesias. No focal weakness. ENDOCRINE: No history of diabetes or thyroid disorder. HEMATOLOGIC: No other source of bleeding. No easy bruising. PHYSICAL EXAMINATION: Vital Signs Date Time Temp Pulse Resp B/P Pulse Ox O2 Delivery O2 Flow Rate FiO2 06/10/16 16:00 97.6 50 18 140/63 93 Nasal Cannula 1.0 I&O- Last 24 Hours up to 6 AM 06/10/16 06:00 Intake Total 0 ml Output Total 0 ml Balance 0 ml GENERAL APPEARANCE: Patient is alert and oriented. In no acute distress. HEENT: Normocephalic, atraumatic. Extraocular muscles are intact. Moist mucosa. NECK: Supple. No thyromegaly. Jugular venous distention is not appreciated. HEART: Normal S1, S2. Regular. Positive for holosystolic murmur. LUNG: Good air movement bilaterally. No rhonchi or wheezing appreciated. ABDOMEN: Soft, nontender, nondistended. Bowel sounds are present. EXTREMITIES: No cyanosis or edema. Positive pedal pulses bilaterally. SKIN: Warm and dry. Good skin turgor. No rashes noted. NEURO: No focal deficits. Cranial nerves II through XII are grossly intact. Motor and sensation intact. LABORATORY DATA: 06/09/16 19:26 06/10/16 00:40 06/10/16 05:21 MICROBIOLOGY: Blood cultures are pending. IMAGING: Chest xray done on 06/09 revealed some venous hypertension, underlying fibrosis and heavier markings in the right than left base. Bibasilar patchy atelectasis or infiltrates, right greater than left. There is lateral pleural thickening/fluid on the right as seen on multiple prior studies. ASSESSMENT/PLAN: 1. End-stage renal disease on hemodialysis. Patient's volume status appears stable at this time. We'll continue with normal dialysis schedule of Thursday, Thursday and Thursday. Next dialysis session is tomorrow June 11. 2. Acute GI bleed superimposed on chronic anemia in renal disease. He has history of vascular ectasia and diverticulosis. Hemoglobin is being monitored. He will be gently hydrated. Dr. Fuller has done multiple scopes on him in the past and will be consulted. 3. Probable pneumonia. Patient is currently on ceftriaxone and azithromycin. Being managed by primary team. 4. History of hyperphosphatemia. Patient is on PhosLo. 5. History of atrial fibrillation. Patient appears to be regular on exam. He is on amiodarone. 6. History of heart failure. Patient appears compensated at this time. Continue with normal dialysis schedule. 7. History of coronary artery disease with cardiac stenting. Patient is asymptomatic at this time. He is on aspirin and Crestor. Thank you for the consultation and allowing us to participate in the care of Mr. Cahmberlain. We will continue to follow along with you. Allergies Coded Allergies: Latex (Verified Allergy, Unknown, 02/07/16) Aminoglycosides (Verified Adverse Reaction, Mild, IRRITATES SKIN, 08/14/12) Bacitracin (Verified Adverse Reaction, Mild, IRRITATES SKIN, 08/14/12) Neomycin (Verified Adverse Reaction, Mild, IRRITATES SKIN, 08/14/12) Polymyxin B (Verified Adverse Reaction, Mild, IRRITATES SKIN, 08/14/12) Simvastatin (Verified Adverse Reaction, Mild, DOES NOT FEEL GOOD, 09/07/13) Home Medications Scheduled (Anoro Ellipta 62.5-25 Mcg/INH) 1 Aer Aer 1 AER INH DAILY (Reported) Amiodarone HCl (Amiodarone HCl) 200 Mg Tab 200 MG PO DAILY (Reported) Aspirin (Aspirin 81) 81 Mg Tab 81 MG PO QHS (Reported) Calcium Acetate (Calcium Acetate) 667 Mg Tab 667 MG PO WM (Reported) Cholecalciferol (Vitamin D-3) 2,000 Unit Tab 2,000 UNIT PO DAILY (Reported) Epoetin Sandeep (Epogen) 2,000 Unit/Ml Inj 1,000 UNIT IJ 1XWK (Reported) Pantoprazole Sodium (Pantoprazole Sodium) 40 Mg Tab 40 MG PO BID (Reported) Rosuvastatin (Crestor) 10 Mg Tab 10 MG PO QHS (Reported) Vitamin B Complex/Vit C (B Complex/C) 1 Tab Tab 1 TAB PO DAILY (Reported) Scheduled PRN Albuterol/Ipratropium (Ipratropium [place]/Albut 0.5-2.5 (3) mg/3Ml) 1 Cecilia Cecilia 1 CECILIA INH QID PRN PRN SHORTNESS OF BREATH (Reported) GME ATTESTATION GME ATTESTATION My preceptor for this patient encounter was physically present in the building during the encounter and was fully available. As needed, all aspects of the patient interview, examination, medical decision making process, and medical care plan development were reviewed and approved by the preceptor. Preceptor is aware and concurs with the plan as stated in the body of this note and will attest to such by his/her cosignature. DAHIANA ROCHA DO Jun 10, 2016 17:53
[2016-06-10] MEDS ORDERED: AZITHROMYCIN 250 MG TAB PO SCH (18:00)
--- NOTE | 2016-06-10 20:44 | ECGEPIP ---
Stationary ECG Study [facility] - ED Test Date: 2016-06-09 Pat Name: DONITA HARRIS Department: Room: [place] [address] Gender: M Rn Occupational Health: apollo : 1935 Requested By: RANJAN OCASIO Order Number: [id number] Reading MD: Mona Canas Measurements Intervals [place] Rate: 64 P: 22 VA: 183 QRS: -38 QRSD: 147 T: 86 QT: 446 QTc: 462 Interpretive Statements SINUS RHYTHM MARKED LEFT AXIS DEVIATION LEFT BUNDLE BRANCH BLOCK Electronically Signed On 06-10-2016 20:44:19 EST by Mona Canas
[2016-06-11 04:00] VITALS: BP 118/57
[2016-06-11] MEDS: SLF 3 ML SYR IV SCH ×3 (05:03→21:27)
[2016-06-11] MEDS: cefTRIAXone SOD 2 GM in D5W MINI-BAG PLUS 50 ML IV SCH ×2 (05:03→17:29)
[2016-06-11] MEDS: NS 1,000 ML IV SCH ×2 (05:03→21:26)
[2016-06-11 05:51] LABS: MEAN CORPUSCULAR VOLUME 87.6 fl (80.0-96.0); RED CELL DISTRIBUTION WIDTH 16.5 % (11.5-14.5); WHITE BLOOD COUNT 5.2 K/mm3 (4.0-10.0)
[2016-06-11 06:08] LABS: ALBUMIN 2.6 GM/DL (3.2-5.2); CALCIUM LEVEL 7.4 MG/DL (8.8-10.2); CREATININE FOR GFR 8.6 MG/DL (0.70-1.30); GLOMERULAR FILTRATION RATE 6.4 (>35); PHOSPHORUS LEVEL 5.5 MG/DL (2.5-4.9); POTASSIUM SERUM 5.1 MEQ/L (3.5-5.1)
[2016-06-11 08:00] VITALS: BP 115/57
[2016-06-11] MEDS: VITAMIN D 1,000 INTERNATIONAL UNITS TABLET PO SCH (08:21)
[2016-06-11] MEDS: PANTOPRAZOLE 40MG INJ (PROTONIX) (C9113) IV SCH ×2 (08:21→21:26)
[2016-06-11] MEDS: CALCIUM ACETATE 667 MG GELCAP PO SCH ×3 (08:21→17:30)
[2016-06-11] MEDS: VITAMIN B COMPLEX/VIT C CAP PO SCH (08:21)
[2016-06-11] MEDS: AMIODARONE 200 MG TAB (PACERONE) PO SCH (08:21)
[2016-06-11] MEDS ORDERED: DARBEPOETIN 100 MCG/0.5 ML *DIALYSIS* SYRINGE (J0882) IV SCH (11:00)
[2016-06-11] MEDS ORDERED: IRON SUCROSE 100 MG/5 ML INJ (J1756) IV SCH (11:00)
[2016-06-11 13:53] VITALS: BP 140/66
[2016-06-11 16:00] VITALS: BP 125/58
--- NOTE | 2016-06-11 17:11 | IPNPDOC ---
Date/Time Seen The patient was seen on 06/11/16 at 16:52. Progress Note DATE OF ENCOUNTER: 06/11/2016 SUBJECTIVE: Mr. Chamberlain was seen this morning during hemodialysis. He reports that he had bloody bowel movement twice yesterday. He denies any nausea, vomiting or abdominal pain. He was seen by gastroenterology and hemoglobin is being monitored at this time. He denies any lightheadedness or dizziness. No chest pain, chest pressure or shortness of breath. No fevers or chills. He had some bradycardia on telemetry and cardiology is being consulted. OBJECTIVE: Vital Signs Date Time Temp Pulse Resp B/P Pulse Ox O2 Delivery O2 Flow Rate FiO2 06/11/16 16:00 97.0 54 18 125/58 94 Nasal Cannula 2.0 I&O- Last 24 Hours up to 6 AM 06/11/16 06:00 Intake Total 2680 ml Balance 2680 ml GENERAL: Patient is alert and oriented. In no acute distress. HEENT: Normocephalic, atraumatic. Extraocular muscles are intact. Moist mucosa. NECK: Supple. No thyromegaly. Jugular venous distention is not appreciated. HEART: Normal S1, S2. Heart sounds are regular. Positive for systolic ejection murmur. LUNG: Good air movement bilaterally. No rhonchi or wheezing appreciated. ABDOMEN: Soft, nontender, nondistended. Bowel sounds are present. EXTREMITIES: No cyanosis or edema. Positive pedal pulses bilaterally. SKIN: Warm and dry. Good skin turgor. No rashes noted. NEURO: No focal deficits. Motor and sensation intact. LABORATORY DATA: 06/11/16 05:34 MICROBIOLOGY: Blood cultures show no growth thus far. IMAGING: Chest x-ray done on 06/09 revealed some venous hypertension, underlying fibrosis and heavier markings in the right than left base. Bibasilar patchy atelectasis or infiltrates, right greater than left. There is lateral pleural thickening/fluid on the right as seen on multiple prior studies. ASSESSMENT/PLAN: 1. End-stage renal disease on hemodialysis. He is being dialyzed today, with a goal of removing 2.5 liters. Potassium is on the upper limit of normal which should improve after dialysis. Volume status is stable. We will continue with normal dialysis schedule of Thursday, Thursday and Thursday. 2. Acute GI bleed superimposed on chronic anemia in renal disease. He has history of vascular ectasia and diverticulosis. He has been seen by gastroenterology. This is thought to be a diverticular bleed and his hemoglobin is being monitored. He was given Aranesp and Venofer in dialysis today. 3. Bradycardia. This was noted on telemetry. He has been on amiodarone due to history of atrial fibrillation, currently sinus rhythm. Cardiology has been consulted. 4. Possible pneumonia. Patient is currently on ceftriaxone. Azithromycin was discontinued. Being managed by primary team. 5. History of heart failure. Volume status appears stable. Continue to correct fluid status with hemodialysis. 6. History of hyperphosphatemia. Patient is on PhosLo. GME ATTESTATION GME ATTESTATION My preceptor for this patient encounter was physically present in the building during the encounter and was fully available. As needed, all aspects of the patient interview, examination, medical decision making process, and medical care plan development were reviewed and approved by the preceptor. Preceptor is aware and concurs with the plan as stated in the body of this note and will attest to such by his/her cosignature. DAHIANA ROCHA DO Jun 11, 2016 17:11
--- NOTE | 2016-06-11 18:48 | IPN ---
DATE: 06/11/2016 SUBJECTIVE: The patient is seen and examined in the room today. Yesterday afternoon, the patient had another bowel movement with bright red blood. The patient stated he has a history of intermittent bradycardia and he is seen by cardiology in [place]. The patient was told that the patient is a poor candidate for any type of procedure or surgery, and he is aware of the risks. On cardiac telemetry, there are multiple readings of atrial tachycardia. The heart rate can be low as 35. OBJECTIVE: VITAL SIGNS: Temperature is 96.5, pulse is 48, respirations 18, blood pressure is 115/57, pulse oximetry 93% with two liters nasal cannula. GENERAL: Fatigued. No sign of acute distress. Alert and oriented times three. HEENT: Normocephalic, atraumatic. Extraocular motor grossly intact. CARDIOVASCULAR: Bradycardia. Positive S1, S2. Positive murmurs. RESPIRATORY: No crackles. No wheezes. ABDOMEN: Soft, nontender, nondistended. Bowel sounds present. No rebound, no guarding. EXTREMITIES: Multiple bruises, more significant in upper extremities. No sign of cyanosis. No significant edema. LABORATORY DATA: WBC is 5.2, hemoglobin 9.4, hematocrit 29.4, platelet count 116. Sodium 140, potassium 5.1, chloride 102, carbon dioxide 26, BUN 65, creatinine 8.6, GFR is 8.4, fasting glucose 91, calcium 7.4, phosphorus 5.5, albumin 2.6. ASSESSMENT AND PLAN: 1. Gastrointestinal (GI) bleed. Gastroenterology specialist, Dr. Fuller, is consulted. The patient's GI bleed is most likely due to diverticulosis and hemorrhoids. Conservative approach was recommended. The patient had an upper endoscopy and colonoscopy done by Dr. Fuller in April 2016. The scope was significant for diverticulosis. No cancer was found. The patient continued to have bright red blood per rectum. We will continue to monitor. The patient's hemoglobin and hematocrit remains stable at this time. We will continue with IV fluid. 2. End-stage renal disease on hemodialysis. Appreciate Dr. Dahl's assistance. The patient has dialysis scheduled on Thursday, Thursday, Thursday. 3. History of chronic obstructive pulmonary disease (COPD), currently compensated. 4. Obstructive sleep apnea. 5. History of anemia of chronic disease, on Procrit. 6. History of coronary artery disease on aspirin and Crestor. 7. Atrial fibrillation. The patient was on amiodarone 200 mg by mouth daily. Anticoagulation on hold due to a GI bleed. 8. Intermittent bradycardia. The patient is a poor surgical candidate. The hand sample maker, Dr. Marin, has been consulted to assist on this issue. The patient is probably not a candidate for a pacemaker. We will follow with Dr. Marin for any medical management. 9. History of systolic and diastolic congestive heart failure. Currently compensated. 10. History of aortic valvular disease. 11. Hyperlipidemia on statin. 12. Deep venous thrombosis (DVT) prophylaxis. Due to current GI bleed, the patient is on thromboembolism deterrent stockings (TEDs) and sequential compression devices.
[2016-06-11 20:00] VITALS: BP 117/52; PULSE 48
[2016-06-11] MEDS: ROSUVASTATIN 10 MG TAB (CRESTOR) PO SCH (21:26)
[2016-06-11] MEDS: ASPIRIN 81 MG ENTERIC TAB PO SCH (21:26)
--- NOTE | 2016-06-11 23:15 | ECGEPIP ---
Stationary ECG Study [facility] Test Date: 2016-06-11 Pat Name: DONITA HARRIS Department: Room: [place] [address] Gender: M Ripening Room Hand: ART : 1935 Requested By: GERMÁN BONILLA Order Number: [id number] Reading MD: Eze Wood Measurements Intervals [place] Rate: 50 P: VT: 0 QRS: -29 QRSD: 158 T: 83 QT: 489 QTc: 447 Interpretive Statements SINUS BRADYCARDIA LBBB SIMILAR 06/09/16 Electronically Signed On 06-11-2016 23:14:36 EST by Eze Wood
[2016-06-11 23:57] VITALS: BP 126/58
[2016-06-12] VITALS (7 sets, daily range): BP systolic 120–147; BP diastolic 56–66; PULSE 44–46
--- NOTE | 2016-06-12 02:15 | EDDOCDS ---
Physician Documentation [facility] Name: Nj Chamberlain Age: 80 yrs Sex: Male : 1935 Arrival Date: 06/09/2016 Time: 17:57 Bed 14 Private MD: Stewart Everett Disposition: 06/09/16 20:56 Hospitalization ordered by Clare Wadsworth for Inpatient Admission. Preliminary diagnosis are Hemorrhage of anus and rectum, Acute combined systolic (congestive) and diastolic (congestive) heart failure. - Bed requested for PCU. - Status is Inpatient Admission. mgs - Condition is Stable. - Problem is an ongoing problem. - Symptoms are unchanged. Historical: - Allergies: Adhesives; Neosporin ([id number]); Zocor; - Home Meds: 1. [place] with Vit C 1 tab daily 2. amiodarone 200 mg Oral tab 1 tab once daily 3. aspirin 81 mg Oral tab 1 tab once daily 4. Crestor 10 mg Oral tab 1 tab once daily 5. DuoNeb 0.5 mg-3 mg(2.5 mg base)/3 mL Inhl nebu 3 mL 4 times per day 6. PhosLo 667 mg Oral cap 1 caps 3 times per day 7. anoro inhaler 8. Vitamin D3 2,000 unit oral cap 1 cap daily 9. esomeprazole magnesium 20 mg Oral cpDR 1 cap 2 times per day 10. Procrit Inj 11. vitamin d infusion - PMHx: Anemia; Atrial Fib; CAD; COPD; Degenerative disc disease; GERD; hyperlipidemia; Myocardial infarction; Osteoarthritis; Renal Failure with Dialysis; Sleep Apnea w/o CPAP; - PSHx: Carotid surgery; Cardiac stents; dialysis fistula; cardiac cath; Ablation, Cardiac; Tonsillectomy; - Social history: Smoking status: Patient/guardian denies using No barriers to communication noted, The patient speaks fluent Jamaican. - Family history: Not pertinent. - : The pt / caregiver states he / she is not on anticoagulants. Home medication list is obtained from the patient, [employer] import data. - Exposure Risk Screening:: None identified. Vital Signs: 06/09 17:59 BP 112 / 60; Pulse 79; Resp 18 S; Temp 98.3(O); Pulse Ox 95% on R/A; Weight 80.29 kg / gr2 177.01 lbs (R); Height 6 ft. 3 in. (190.50 cm) (R); Pain 2/10; 19:25 BP 126 / 61 (auto/); mgs 19:26 Pulse 66 MON; Pulse Ox 95% ; mgs 19:40 BP 128 / 56 (auto/); mgs 19:43 Pulse Ox 94% ; mgs 19:54 Pulse 56 MON; Pulse Ox 93% ; mgs 19:55 BP 122 / 59 (auto/); mgs 20:10 BP 124 / 58 (auto/); mgs 20:10 Pulse 54 MON; Pulse Ox 93% ; mgs 20:25 BP 122 / 60 (auto/); mgs 20:25 Pulse 54 MON; Pulse Ox 93% ; mgs 20:40 BP 117 / 56 (auto/); mgs 20:40 Pulse 52 MON; Pulse Ox 93% ; mgs 20:55 BP 133 / 61 (auto/); mgs 20:55 Pulse 52 MON; Pulse Ox 92% ; mgs 21:10 BP 126 / 61 (auto/); mgs 21:10 Pulse 50 MON; Pulse Ox 93% ; mgs 21:25 BP 127 / 59 (auto/); mgs 21:25 Pulse 50 MON; Pulse Ox 93% ; mgs 21:40 BP 123 / 58 (auto/); mgs 21:40 Pulse 50 MON; Pulse Ox 92% ; mgs 21:55 BP 113 / 56 (auto/); mgs 21:55 Pulse 50 MON; Pulse Ox 93% ; mgs 22:10 BP 116 / 56 (auto/); mgs 22:10 Pulse 50 MON; Pulse Ox 93% ; mgs 22:25 BP 138 / 65 (auto/); mgs 22:25 Pulse 50 MON; Pulse Ox 93% ; mgs 22:40 Pulse 50 MON; Pulse Ox 97% ; mgs 22:40 BP 118 / 56 (auto/); mgs 22:55 BP 129 / 61 (auto/); mgs 22:55 Pulse 50 MON; Pulse Ox 97% ; mgs 23:10 BP 135 / 60 (auto/); mgs 23:10 Pulse 50 MON; Pulse Ox 96% ; mgs 23:25 BP 116 / 56 (auto/); mgs 23:25 Pulse 52 MON; Pulse Ox 97% ; mgs 23:40 BP 123 / 54 (auto/); mgs 23:40 Pulse 52 MON; Pulse Ox 97% ; mgs 23:55 BP 126 / 58 (auto/); mgs 23:55 Pulse 48 MON; Pulse Ox 95% ; mgs 06/10 00:10 BP 137 / 65 (auto/); mgs 00:10 Pulse 50 MON; Pulse Ox 95% ; mgs 00:25 BP 134 / 62 (auto/); mgs 00:25 Pulse 50 MON; Pulse Ox 96% ; mgs 00:34 BP 134 / 62 RA Supine (auto/reg); Pulse 52 MON; Resp 18 S; Temp 97.0(T); Pulse Ox 97% cln on R/A; Pain 0/10; 00:40 BP 127 / 59 (auto/); mgs 00:40 Pulse 50 MON; Pulse Ox 83% ; mgs 00:55 BP 133 / 62 (auto/); mgs 00:55 Pulse 48 MON; Pulse Ox 96% ; mgs 01:10 BP 109 / 48 (auto/); mgs 01:10 Pulse 48 MON; Pulse Ox 95% ; mgs 06/09 17:59 Body Mass Index 22.12 (80.29 kg, 190.50 cm) gr2 MDM: 06/09 19:14 -Blood Culture (Adults Only), peripheral from different site, or from device/port/PICC ke etc. if present ordered. 19:14 Log Yard Derrick Operator/Pulse Ox/q 15 min VS ordered. ke 19:14 IV Saline Lock ordered. ke 19:14 Oxygen at 4L/Min NC or Home dosage ordered. ke 19:14 Rhythm Strip to chart ordered. ke 19:14 NS 0.9% 1000 ml IV at 100 mL/hr continuous ordered. ke 19:15 Type & Screen Ordered. EDMS 19:15 Basic Metabolic Profile Ordered. EDMS 19:15 CBC with Diff Ordered. EDMS 19:15 Cardiac Injury Profile Ordered. EDMS 19:15 Troponin Ordered. EDMS 19:15 PT/INR Ordered. EDMS 19:15 Liver Profile Ordered. EDMS 19:15 BNP Ordered. EDMS 19:16 -Blood Culture Ordered. EDMS 19:16 Chest, 2 View (pa\E\lat) Ordered. EDMS 19:16 ECG WITH READING ER PHYS+CARDIAG ordered. EDMS 19:18 -Blood Culture (Adults Only), peripheral from different site, or from device/port/PICC ml3 etc. if present complete. 19:19 BLOOD CULTURES Ordered. EDMS 19:19 BED REQUEST+ADM ordered. EDMS 20:37 Basic Metabolic Profile Reviewed. ke 20:37 CBC with Diff Reviewed. ke 20:37 Liver Profile Reviewed. ke 20:37 BNP Reviewed. ke 20:37 Cardiac Injury Profile Reviewed. ke 20:37 Troponin Reviewed. ke 20:37 PT/INR Reviewed. ke 20:37 Type & Screen Reviewed. ke 23:24 Written Provider Order was scanned into [employer] and attached to record. ml3 23:35 Financial registration complete. hs2 23:51 [facility] Payment Agreement was scanned into [employer] and attached to record. 2 06/10 00:02 Admission / Observation Status ordered. EDMS 00:25 CLEAR LIQUIDS DIET ordered. EDMS 00:26 HEMOGLOBIN & HEMATOCRIT Ordered. EDMS 00:26 COMPLETE BLOOD COUNT Ordered. EDMS 00:26 RENAL PROFILE Ordered. EDMS 00:26 HEMOGLOBIN & HEMATOCRIT Ordered. EDMS 00:26 HEMOGLOBIN & HEMATOCRIT Ordered. EDMS 00:26 HEMOGLOBIN & HEMATOCRIT Ordered. EDMS 00:26 CARDIAC MARKER PANEL Ordered. EDMS 00:26 CARDIAC MARKER PANEL Ordered. EDMS 09:31 T-Sheet-- Draft Copy was scanned into [employer] and attached to record. 09:32 ECG/EKG was scanned into [employer] and attached to record. gb Administered Medications: Discontinued: NS 0.9% 1000 ml IV at 100 mL/hr continuous 06/09 20:00 Drug: NS 0.9% 1000 ml [sodium chloride 0.9 % intravenous solution] Route: IV; Rate: 100 mgs mL/hr; Site: right antecubital; Signatures: Dispatcher [employer] EDMS Lizzie Flynn, RN RN Marlyn Montoya, Reg Reg gb George Mcdowell, RAILROAD WORKER RAILROAD WORKER Tamy Romeo, Stamping Die Try Out Worker Unit ml3 Faisal Fabian,RN RN mgs Estela Sanders, Reg Reg hs2 The chart was reviewed and I authenticate all verbal orders and agree with the evaluation and treatment provided.Attachments: 23:24 Written Provider Order 3 23:51 [facility] Payment Agreement 2 01/31 09:31 T-Sheet-- Draft Copy gb 09:32 ECG/EKG gb Chart Complete MTDD
--- NOTE | 2016-06-12 02:15 | EDDOCDS ---
Nurse's Notes [facility] Name: Nj Chamberlain Age: 80 yrs Sex: Male : 1935 Arrival Date: 06/09/2016 Time: 17:57 Bed 14 Private MD: Stewart Everett Diagnosis: Hemorrhage of anus and rectum;Acute combined systolic (congestive) and diastolic (congestive) heart failure Presentation: 06/09 18:03 Presenting complaint: Patient states: Pt presents with onset of rectal bleeding this dls afternoon lots of blood in toilet bowl dark red. Adult Sepsis Screening: The patient does not have new or worsening altered mentation. Patient's respiratory rate is less than 22. Systolic blood pressure is greater than 100. Patient has a qSOFA score of 0- Negative Sepsis Screen. Suicide/Homicide risk assessment- the patient denies having any suicidal and/or homicidal ideations and does not present with any other emotional, behavioral or mental health complaints. Status: Patient is not a environmental services attendant or dependent. Transition of care: patient was not received from another setting of care. 18:03 Acuity: SHANNAN Level 3 dls 18:03 Method Of Arrival: Wheelchair dls 18:27 Red Flag criteria, patient assessed and taken directly to a bed. dls Triage Assessment: 18:10 General: Appears uncomfortable. Pain: Denies pain. dls Historical: - Allergies: Adhesives; Neosporin ([id number]); Zocor; - Home Meds: 1. [place] with Vit C 1 tab daily 2. amiodarone 200 mg Oral tab 1 tab once daily 3. aspirin 81 mg Oral tab 1 tab once daily 4. Crestor 10 mg Oral tab 1 tab once daily 5. DuoNeb 0.5 mg-3 mg(2.5 mg base)/3 mL Inhl nebu 3 mL 4 times per day 6. PhosLo 667 mg Oral cap 1 caps 3 times per day 7. anoro inhaler 8. Vitamin D3 2,000 unit oral cap 1 cap daily 9. esomeprazole magnesium 20 mg Oral cpDR 1 cap 2 times per day 10. Procrit Inj 11. vitamin d infusion - PMHx: Anemia; Atrial Fib; CAD; COPD; Degenerative disc disease; GERD; hyperlipidemia; Myocardial infarction; Osteoarthritis; Renal Failure with Dialysis; Sleep Apnea w/o CPAP; - PSHx: Carotid surgery; Cardiac stents; dialysis fistula; cardiac cath; Ablation, Cardiac; Tonsillectomy; - Social history: Smoking status: Patient/guardian denies using No barriers to communication noted, The patient speaks fluent Faroese. - Family history: Not pertinent. - : The pt / caregiver states he / she is not on anticoagulants. Home medication list is obtained from the patient, [employer] import data. - Exposure Risk Screening:: None identified. Screenin:03 Screening information is obtained from the patient. Fall risk: At risk due to age. mgs Assistance ADL's: requires no assistance with activities of daily living. Abuse/DV Screen: The patient / caregiver reports he/she is: not in a situation that causes fear, pain or injury. Nutritional screening: No deficits noted. Advance Directives: Currently, there is a health care proxy, Jennifer Chamberlain, . There is an active DNR order but there is no copy available at this time. home support is adequate. Assessment: 19:04 Adult Sepsis Screening: The patient does not have new or worsening altered mentation. mgs Patient's respiratory rate is less than 22. Systolic blood pressure is less than or equal to 100 (1 point). Patient has a qSOFA score of 1- Negative Sepsis Screen. General: Appears in no apparent distress, Behavior is appropriate for age, cooperative. Pain: Denies pain. Neurological: Level of Consciousness is awake, alert, Oriented to person, place, time. Cardiovascular: Capillary refill < 3 seconds Heart tones S1 S2 present Murmur present. Respiratory: Airway is patent Respiratory effort is even, unlabored, Respiratory pattern is regular, symmetrical. Derm: Skin is intact. 20:03 General: Appears in no apparent distress, Behavior is appropriate for age, cooperative. mgs Pain: Denies pain. Neurological: Level of Consciousness is awake, alert, Oriented to person, place, time. Cardiovascular: Capillary refill < 3 seconds. Respiratory: Airway is patent Respiratory effort is even, unlabored, Respiratory pattern is regular, symmetrical. Derm: Skin is intact. 20:49 General: Appears in no apparent distress, Behavior is appropriate for age, cooperative. mgs Neurological: Level of Consciousness is awake, alert, Oriented to person, place, time. Cardiovascular: Capillary refill < 3 seconds. Respiratory: Airway is patent Respiratory effort is even, unlabored, Respiratory pattern is regular, symmetrical. 20:50 General: Patient has AV fistula on left upper arm that is positive for bruit and thrill.mgs 21:48 General: Appears in no apparent distress, Behavior is appropriate for age, cooperative. mgs Neurological: Level of Consciousness is awake, alert. Cardiovascular: Capillary refill < 3 seconds. Respiratory: Airway is patent Respiratory effort is even, unlabored, Respiratory pattern is regular, symmetrical. Derm: Skin is intact. 06/10 00:15 General: Appears in no apparent distress, to be sleeping. Cardiovascular: Capillary mgs refill < 3 seconds. Respiratory: Airway is patent Respiratory effort is even, unlabored, Respiratory pattern is regular, symmetrical. Derm: Skin is intact. Vital Signs: 06/09 17:59 BP 112 / 60; Pulse 79; Resp 18 S; Temp 98.3(O); Pulse Ox 95% on R/A; Weight 80.29 kg gr2 (R); Height 6 ft. 3 in. (190.50 cm) (R); Pain 2/10; 19:25 BP 126 / 61 (auto/); mgs 19:26 Pulse 66 MON; Pulse Ox 95% ; mgs 19:40 BP 128 / 56 (auto/); mgs 19:43 Pulse Ox 94% ; mgs 19:54 Pulse 56 MON; Pulse Ox 93% ; mgs 19:55 BP 122 / 59 (auto/); mgs 20:10 BP 124 / 58 (auto/); mgs 20:10 Pulse 54 MON; Pulse Ox 93% ; mgs 20:25 BP 122 / 60 (auto/); mgs 20:25 Pulse 54 MON; Pulse Ox 93% ; mgs 20:40 BP 117 / 56 (auto/); mgs 20:40 Pulse 52 MON; Pulse Ox 93% ; mgs 20:55 BP 133 / 61 (auto/); mgs 20:55 Pulse 52 MON; Pulse Ox 92% ; mgs 21:10 BP 126 / 61 (auto/); mgs 21:10 Pulse 50 MON; Pulse Ox 93% ; mgs 21:25 BP 127 / 59 (auto/); mgs 21:25 Pulse 50 MON; Pulse Ox 93% ; mgs 21:40 BP 123 / 58 (auto/); mgs 21:40 Pulse 50 MON; Pulse Ox 92% ; mgs 21:55 BP 113 / 56 (auto/); mgs 21:55 Pulse 50 MON; Pulse Ox 93% ; mgs 22:10 BP 116 / 56 (auto/); mgs 22:10 Pulse 50 MON; Pulse Ox 93% ; mgs 22:25 BP 138 / 65 (auto/); mgs 22:25 Pulse 50 MON; Pulse Ox 93% ; mgs 22:40 Pulse 50 MON; Pulse Ox 97% ; mgs 22:40 BP 118 / 56 (auto/); mgs 22:55 BP 129 / 61 (auto/); mgs 22:55 Pulse 50 MON; Pulse Ox 97% ; mgs 23:10 BP 135 / 60 (auto/); mgs 23:10 Pulse 50 MON; Pulse Ox 96% ; mgs 23:25 BP 116 / 56 (auto/); mgs 23:25 Pulse 52 MON; Pulse Ox 97% ; mgs 23:40 BP 123 / 54 (auto/); mgs 23:40 Pulse 52 MON; Pulse Ox 97% ; mgs 23:55 BP 126 / 58 (auto/); mgs 23:55 Pulse 48 MON; Pulse Ox 95% ; mgs 06/10 00:10 BP 137 / 65 (auto/); mgs 00:10 Pulse 50 MON; Pulse Ox 95% ; mgs 00:25 BP 134 / 62 (auto/); mgs 00:25 Pulse 50 MON; Pulse Ox 96% ; mgs 00:34 BP 134 / 62 RA Supine (auto/reg); Pulse 52 MON; Resp 18 S; Temp 97.0(T); Pulse Ox 97% cln on R/A; Pain 0/10; 00:40 BP 127 / 59 (auto/); mgs 00:40 Pulse 50 MON; Pulse Ox 83% ; mgs 00:55 BP 133 / 62 (auto/); mgs 00:55 Pulse 48 MON; Pulse Ox 96% ; mgs 01:10 BP 109 / 48 (auto/); mgs 01:10 Pulse 48 MON; Pulse Ox 95% ; mgs 06/09 17:59 Body Mass Index 22.12 (80.29 kg, 190.50 cm) gr2 Vitals: 06/09 17:59 Log In Time: June 09, 2016 at 17:59. RN notified that patient meets Red Flag gr2 criteria. ED Course: 17:59 Patient visited by Jas Merino. gr2 17:59 Stewart Everett is Private Physician. gr2 17:59 Patient moved to Waiting gr2 18:01 Patient visited by Jas Merino. gr2 18:02 Patient visited by Jas Merino. gr2 18:02 Patient visited by Jas Merino. gr2 18:02 Patient moved to Pre RCE gr2 18:05 Triage Initiated dls 18:11 Patient moved to 14 dls 18:44 Patient visited by Anisha Santana RN. mk4 18:54 George Mcdowell FNP is PHCP. ke 18:54 Patient visited by George Mcdowell FNP. ke 18:54 Patient visited by George Mcdowell FNP. ke 18:56 Faisal Fabian,APOORVA is Primary Nurse. mgs 19:06 Patient visited by Faisal Fabian RN. mgs 19:20 Patient moved to Radiology sim 19:22 Patient visited by Narcisa Pozo PCA. cln 19:22 EKG done. (by ED staff). Reviewed by George OCASIO. cln 19:28 BNP Sent. mgs 19:28 Liver Profile Sent. mgs 19:28 Type & Screen Sent. mgs 19:28 PT/INR Sent. mgs 19:28 -Blood Culture Sent. mgs 19:28 Basic Metabolic Profile Sent. mgs 19:28 CBC with Diff Sent. mgs 19:28 Cardiac Injury Profile Sent. mgs 19:28 Troponin Sent. mgs 19:40 Patient moved to 14 sim 19:52 Patient visited by George Mcdowell FNP. ke 19:58 BLOOD CULTURES Sent. cln 20:03 Patient visited by Faisal Fabian RN. mgs 20:40 Patient visited by George Mcdowell FNP. ke 20:51 Patient visited by Faisal Fabian RN. mgs 20:53 Clare Wadsworth is Hospitalizing Provider. ke 20:53 Chest, 2 View (pa\E\lat) Returned. EDMS 22:26 Patient visited by Faisal Fabian RN. mgs 23:24 Written Provider Order was scanned into [employer] and attached to record. ml3 23:51 [facility] Payment Agreement was scanned into [employer] and attached to record. hs2 06/10 00:15 Patient visited by Faisal Fabian RN. mgs 00:34 Patient visited by Narcisa Pozo PCA. cln 01:11 Inserted saline lock: 20 gauge in right antecubital area and blood collected. The mgs patient tolerated the procedure well. No procedures done that require assistance. 01:12 The patient / caregiver is instructed regarding the plan of care and ED course. mgs 09:31 T-Sheet-- Draft Copy was scanned into [employer] and attached to record. gb 09:32 ECG/EKG was scanned into [employer] and attached to record. gb Administered Medications: Discontinued: NS 0.9% 1000 ml IV at 100 mL/hr continuous 06/09 20:00 Drug: NS 0.9% 1000 ml [sodium chloride 0.9 % intravenous solution] Route: IV; Rate: 100 mgs mL/hr; Site: right antecubital; Order Results: Lab Order: Basic Metabolic Profile; SPEC'M 06/09/16 19:26 Test: GLUCOSE, FASTING; Value: 122; Range: 83-110; Abnormal: Above high normal; Units: MG/DL; Status: F Test: BLOOD UREA NITROGEN; Value: 37; Range: 7-18; Abnormal: Above high normal; Units: MG/DL; Status: F Test: CREATININE FOR GFR; Value: 6.20; Range: 0.70-1.30; Abnormal: Above high normal; Units: MG/DL; Status: F Test: GLOMERULAR FILTRATION RATE; Value: 9.3; Range: >35; Abnormal: Below low normal; Status: F Test: SODIUM LEVEL; Value: 144; Range: 136-145; Units: MEQ/L; Status: F Test: POTASSIUM SERUM; Value: 4.4; Range: 3.5-5.1; Units: MEQ/L; Status: F Test: CHLORIDE LEVEL; Value: 101; Range: 98-107; Units: MEQ/L; Status: F Test: CARBON DIOXIDE LEVEL; Value: 33; Range: 21-32; Abnormal: Above high normal; Units: MEQ/L; Status: F Test: ANION GAP; Value: 10; Range: 8-16; Units: MEQ/L; Status: F Test: CALCIUM LEVEL; Value: 8.1; Range: 8.8-10.2; Abnormal: Below low normal; Units: MG/DL; Status: F Test Note: ; Units are mL/min/1.73 m2 Chronic Kidney Disease Staging per NKF: Stage I & II GFR >=60 Normal to Mildly Decreased Stage III GFR 30-59 Moderately Decreased Stage IV GFR 15-29 Severely Decreased Stage V GFR <15 Very Little GFR Left ESRD GFR <15 on CENTER MGR Lab Order: CBC with Diff; SPEC'M 06/09/16 19:26 Test: WHITE BLOOD COUNT; Value: 5.1; Range: 4.0-10.0; Units: K/mm3; Status: F Test: RED BLOOD COUNT; Value: 4.50; Range: 4.30-6.10; Units: M/mm3; Status: F Test: HEMOGLOBIN; Value: 12.1; Range: 14.0-18.0; Abnormal: Below low normal; Units: g/dl; Status: F Test: HEMATOCRIT; Value: 39.0; Range: 42.0-52.0; Abnormal: Below low normal; Units: %; Status: F Test: MEAN CORPUSCULAR VOLUME; Value: 86.6; Range: 80.0-96.0; Units: fl; Status: F Test: MEAN CORPUSCULAR HEMOGLOBIN; Value: 27.0; Range: 27.0-33.0; Units: pg; Status: F Test: MEAN CORPUSCULAR HGB CONC; Value: 31.2; Range: 32.0-36.5; Abnormal: Below low normal; Units: g/dl; Status: F Test: RED CELL DISTRIBUTION WIDTH; Value: 16.3; Range: 11.5-14.5; Abnormal: Above high normal; Units: %; Status: F Test: PLATELET COUNT, AUTOMATED; Value: 137; Range: 150-450; Abnormal: Below low normal; Units: k/mm3; Status: F Test: NEUTROPHILS %; Value: 74.2; Range: 36.0-66.0; Abnormal: Above high normal; Units: %; Status: F Test: LYMPH %; Value: 10.8; Range: 24.0-44.0; Abnormal: Below low normal; Units: %; Status: F Test: MONO %; Value: 7.6; Range: 0.0-5.0; Abnormal: Above high normal; Units: %; Status: F Test: EOS %; Value: 3.9; Range: 0.0-3.0; Abnormal: Above high normal; Units: %; Status: F Test: BASO %; Value: 1.0; Range: 0.0-1.0; Units: %; Status: F Test: LARGE UNSTAINED CELL %; Value: 2.5; Range: 0.0-4.0; Units: %; Status: F Test: NEUTROPHILS #; Value: 3.8; Range: 1.8-7.7; Units: K/mm3; Status: F Test: LYMPH #; Value: 0.6; Range: 1.5-4.5; Abnormal: Below low normal; Units: K/mm3; Status: F Test: MONO #; Value: 0.4; Range: 0.0-0.8; Units: K/mm3; Status: F Test: EOS #; Value: 0.2; Range: 0.0-0.50; Units: K/mm3; Status: F Test: BASO #; Value: 0.0; Range: 0.0-0.2; Units: K/mm3; Status: F Test: LARGE UNSTAINED CELL #; Value: 0.1; Range: 0.0-0.4; Units: K/mm3; Status: F Lab Order: Cardiac Injury Profile; SPEC'M 06/09/16 19:26 Test: CPK CREATINE PHOSPHOKINASE; Value: 64; Range: 39-308; Units: U/L; Status: F Test: CK-MB VALUE MASS; Value: 2.4; Range: 0.0-3.6; Units: NG/ML; Status: F Test: MB/CK RELATIVE INDEX; Value: 3.75; Range: < OR =4; Status: F Test Note: ; DIAGNOSIS CRITERIA MMB ng/ml Relative Index (RI) NON-AMI < or = 5 N/A [place]ONE > 5 < or = 4 AMI > 5 > 4 Lab Order: Troponin; SPEC'M 06/09/16 19:26 Test: TROPONIN I; Value: 0.04; Range: < 0.10; Units: NG/ML; Status: F Test Note: ; Troponin I Reference Interval for Siemens [place] LOCI: 99th Percentile= 0.00-0.045 ng/ml Risk Stratification: <= 0.10 ng/ml Decreased Risk for Adverse Clinical Events. 0.10-1.50 ng/ml Increased Risk for Adverse Clinical Events. Evaluation of additional criterion and/or repeat testing in 2-6 hours is suggested to rule out myocardial damage. >= 1.50 ng/ml Indicative of Myocardial Injury. Lab Order: PT/INR; [facility] 06/09/16 19:26 Test: PROTHROMBIN TIME; Value: 13.3; Range: 12.3-14.5; Units: SECONDS; Status: F Test: INR; Value: 1.00; Status: F Test Note: ; THERAPUTIC HUMAN INR VALUES INDICATIONS NORMAL RANGES PROPHYLAXIS/TREATMENT OF: VENOUS THROMBOSIS 2.0-3.0 PULMONARY EMBOLISM 2.0-3.0 PREVENTION OF SYSTEMIC EMBOLISM FROM: TISSUE HEART VALVES 2.0-3.0 ACUTE MYOCARDIAL INFARCTION 2.0-3.0 VALVULAR HEART DISEASE 2.0-3.0 ATRIAL FIBRILLATION 2.0-3.0 MECHANICAL VALVES(HIGH RISK) 2.5-3.5 RECURRENT MYOCARDIAL INFARCTION 2.5-3.5 Lab Order: Type & Screen; [facility] 06/09/16 19:26 Test: BLOOD TYPE; Value: A NEG; Status: F Test: AB SCREEN (INDIRECT SOPHIA)GEL; Value: NEGATIVE; Status: F Lab Order: Liver Profile; [facility] 06/09/16 19:26 Test: AST/SGOT; Value: 39; Range: 15-37; Abnormal: Above high normal; Units: U/L; Status: F Test: ALT/SGPT; Value: 49; Range: 12-78; Units: U/L; Status: F Test: ALKALINE PHOSPHATASE; Value: 184; Range: 45-117; Abnormal: Above high normal; Units: U/L; Status: F Test: BILIRUBIN,TOTAL; Value: 0.3; Range: 0.2-1.0; Units: MG/DL; Status: F Test: BILIRUBIN,DIRECT; Value: < 0.1; Range: 0.0-0.2; Units: MG/DL; Status: F Test: TOTAL PROTEIN; Value: 6.8; Range: 6.4-8.2; Units: GM/DL; Status: F Test: ALBUMIN; Value: 3.1; Range: 3.2-5.2; Abnormal: Below low normal; Units: GM/DL; Status: F Test: ALBUMIN/GLOBULIN RATIO; Value: 0.84; Range: 1.00-1.93; Abnormal: Below low normal; Status: F Lab Order: BNP; SPEC'M 06/09/16 19:26 Test: BRAIN NATRIURETIC PEPTIDE; Value: 1560; Range: <100; Abnormal: Above high normal; Units: PG/ML; Status: F Lab Order: HEMOGLOBIN & HEMATOCRIT; SPEC'M 06/10/16 00:40 Test: HEMOGLOBIN; Value: 11.4; Range: 14.0-18.0; Abnormal: Below low normal; Units: g/dl; Status: F Test: HEMATOCRIT; Value: 36.1; Range: 42.0-52.0; Abnormal: Below low normal; Units: %; Status: F Radiology Order: Chest, 2 View (pa\E\lat) Test: Chest, 2 View (pa\E\lat) REASON FOR EXAMINATION: Shortness of Breath; CHEST X-RAY, AP AND LATERAL: 06/09/2016.; ; Comparison: Two-view chest 09/17/2015, 04/06/2015, 11/14/2013, CT abdomen showing; lower chest 10/27/2013.; ; Clinical history: Dyspnea.; ; Findings. Lungs are hyperinflated. There is underlying interstitial fibrosis; and some venous hypertension. Heavier fibrosis in the bases and there is lateral; pleural thickening or pleural fluid along the right lateral chest wall similar to; the multiple other prior studies and left CP angle is sharply defined while the; right is slightly blunted as before. Heart is not grossly enlarged. The aorta; is tortuous, ectatic and unchanged. There is pulmonary artery hypertension.; Degenerative changes seen in the shoulders, AC joint and spine.; ; Impression:; No cardiomegaly, but there is some venous hypertension, underlying fibrosis and; heavier markings in the right than left base. Bibasilar patchy atelectasis or; infiltrates, right greater than left. There is lateral pleural thickening/fluid; on the right as seen on multiple prior studies. No definite left effusion.; ; ; ; ; Unreviewed; Outcome: 20:56 Decision to Hospitalize by Provider. 06/10 01:11 Discharge Assessment: Patient awake, alert and oriented x 3. No cognitive and/or mgs functional deficits noted. Patient verbalized understanding of disposition instructions. patient administered narcotics - no. The following High Risk Discharge criteria are identified: None. Admitted to PCU accompanied by nurse, accompanied by tech, via stretcher, with oxygen, on monitor, with chart. Condition: stable. Property :Personal belongings accompany Pt. 01:12 No special radiology studies were completed. mgs 01:14 Patient left the ED. mgs Signatures: Dispatcher [employer] EDMS Lizzie Flynn, RN RN dls Christian Larios Gloria, Reg Reg gb George Mcdowell, FARMWORKER [employer] FARMWORKER [employer] Tamy Romeo, Rental Car Porter Unit ml3 Jas Merino gr2 Anisha Santana RN RN mk4 Faisal FabianRN RN mgs Estela Sanders, Reg Reg hs2 Sánchez, Narcisa, TONYA H[employer] SPEED WARPER TENDER cln Chart Complete MTDD
--- NOTE | 2016-06-12 02:15 | EDDOCDS ---
Physician Documentation [facility] Name: jN Chamberlain Age: 80 yrs Sex: Male : 1935 Arrival Date: 06/09/2016 Time: 17:57 Bed 14 Private MD: Stewart Everett Disposition: 06/09/16 20:56 Hospitalization ordered by Clare Wadsworth for Inpatient Admission. Preliminary diagnosis are Hemorrhage of anus and rectum, Acute combined systolic (congestive) and diastolic (congestive) heart failure. - Bed requested for PCU. - Status is Inpatient Admission. mgs - Condition is Stable. - Problem is an ongoing problem. - Symptoms are unchanged. Historical: - Allergies: Adhesives; Neosporin ([id number]); Zocor; - Home Meds: 1. [place] with Vit C 1 tab daily 2. amiodarone 200 mg Oral tab 1 tab once daily 3. aspirin 81 mg Oral tab 1 tab once daily 4. Crestor 10 mg Oral tab 1 tab once daily 5. DuoNeb 0.5 mg-3 mg(2.5 mg base)/3 mL Inhl nebu 3 mL 4 times per day 6. PhosLo 667 mg Oral cap 1 caps 3 times per day 7. anoro inhaler 8. Vitamin D3 2,000 unit oral cap 1 cap daily 9. esomeprazole magnesium 20 mg Oral cpDR 1 cap 2 times per day 10. Procrit Inj 11. vitamin d infusion - PMHx: Anemia; Atrial Fib; CAD; COPD; Degenerative disc disease; GERD; hyperlipidemia; Myocardial infarction; Osteoarthritis; Renal Failure with Dialysis; Sleep Apnea w/o CPAP; - PSHx: Carotid surgery; Cardiac stents; dialysis fistula; cardiac cath; Ablation, Cardiac; Tonsillectomy; - Social history: Smoking status: Patient/guardian denies using No barriers to communication noted, The patient speaks fluent [place]. - Family history: Not pertinent. - : The pt / caregiver states he / she is not on anticoagulants. Home medication list is obtained from the patient, [employer] import data. - Exposure Risk Screening:: None identified. Vital Signs: 06/09 17:59 BP 112 / 60; Pulse 79; Resp 18 S; Temp 98.3(O); Pulse Ox 95% on R/A; Weight 80.29 kg / gr2 177.01 lbs (R); Height 6 ft. 3 in. (190.50 cm) (R); Pain 2/10; 19:25 BP 126 / 61 (auto/); mgs 19:26 Pulse 66 MON; Pulse Ox 95% ; mgs 19:40 BP 128 / 56 (auto/); mgs 19:43 Pulse Ox 94% ; mgs 19:54 Pulse 56 MON; Pulse Ox 93% ; mgs 19:55 BP 122 / 59 (auto/); mgs 20:10 BP 124 / 58 (auto/); mgs 20:10 Pulse 54 MON; Pulse Ox 93% ; mgs 20:25 BP 122 / 60 (auto/); mgs 20:25 Pulse 54 MON; Pulse Ox 93% ; mgs 20:40 BP 117 / 56 (auto/); mgs 20:40 Pulse 52 MON; Pulse Ox 93% ; mgs 20:55 BP 133 / 61 (auto/); mgs 20:55 Pulse 52 MON; Pulse Ox 92% ; mgs 21:10 BP 126 / 61 (auto/); mgs 21:10 Pulse 50 MON; Pulse Ox 93% ; mgs 21:25 BP 127 / 59 (auto/); mgs 21:25 Pulse 50 MON; Pulse Ox 93% ; mgs 21:40 BP 123 / 58 (auto/); mgs 21:40 Pulse 50 MON; Pulse Ox 92% ; mgs 21:55 BP 113 / 56 (auto/); mgs 21:55 Pulse 50 MON; Pulse Ox 93% ; mgs 22:10 BP 116 / 56 (auto/); mgs 22:10 Pulse 50 MON; Pulse Ox 93% ; mgs 22:25 BP 138 / 65 (auto/); mgs 22:25 Pulse 50 MON; Pulse Ox 93% ; mgs 22:40 Pulse 50 MON; Pulse Ox 97% ; mgs 22:40 BP 118 / 56 (auto/); mgs 22:55 BP 129 / 61 (auto/); mgs 22:55 Pulse 50 MON; Pulse Ox 97% ; mgs 23:10 BP 135 / 60 (auto/); mgs 23:10 Pulse 50 MON; Pulse Ox 96% ; mgs 23:25 BP 116 / 56 (auto/); mgs 23:25 Pulse 52 MON; Pulse Ox 97% ; mgs 23:40 BP 123 / 54 (auto/); mgs 23:40 Pulse 52 MON; Pulse Ox 97% ; mgs 23:55 BP 126 / 58 (auto/); mgs 23:55 Pulse 48 MON; Pulse Ox 95% ; mgs 06/10 00:10 BP 137 / 65 (auto/); mgs 00:10 Pulse 50 MON; Pulse Ox 95% ; mgs 00:25 BP 134 / 62 (auto/); mgs 00:25 Pulse 50 MON; Pulse Ox 96% ; mgs 00:34 BP 134 / 62 RA Supine (auto/reg); Pulse 52 MON; Resp 18 S; Temp 97.0(T); Pulse Ox 97% cln on R/A; Pain 0/10; 00:40 BP 127 / 59 (auto/); mgs 00:40 Pulse 50 MON; Pulse Ox 83% ; mgs 00:55 BP 133 / 62 (auto/); mgs 00:55 Pulse 48 MON; Pulse Ox 96% ; mgs 01:10 BP 109 / 48 (auto/); mgs 01:10 Pulse 48 MON; Pulse Ox 95% ; mgs 06/09 17:59 Body Mass Index 22.12 (80.29 kg, 190.50 cm) gr2 MDM: 06/09 19:14 -Blood Culture (Adults Only), peripheral from different site, or from device/port/PICC ke etc. if present ordered. 19:14 Avionics Test Technician/Pulse Ox/q 15 min VS ordered. ke 19:14 IV Saline Lock ordered. ke 19:14 Oxygen at 4L/Min NC or Home dosage ordered. ke 19:14 Rhythm Strip to chart ordered. ke 19:14 NS 0.9% 1000 ml IV at 100 mL/hr continuous ordered. ke 19:15 Type & Screen Ordered. EDMS 19:15 Basic Metabolic Profile Ordered. EDMS 19:15 CBC with Diff Ordered. EDMS 19:15 Cardiac Injury Profile Ordered. EDMS 19:15 Troponin Ordered. EDMS 19:15 PT/INR Ordered. EDMS 19:15 Liver Profile Ordered. EDMS 19:15 BNP Ordered. EDMS 19:16 -Blood Culture Ordered. EDMS 19:16 Chest, 2 View (pa\E\lat) Ordered. EDMS 19:16 ECG WITH READING ER PHYS+CARDIAG ordered. EDMS 19:18 -Blood Culture (Adults Only), peripheral from different site, or from device/port/PICC ml3 etc. if present complete. 19:19 BLOOD CULTURES Ordered. EDMS 19:19 BED REQUEST+ADM ordered. EDMS 20:37 Basic Metabolic Profile Reviewed. ke 20:37 CBC with Diff Reviewed. ke 20:37 Liver Profile Reviewed. ke 20:37 BNP Reviewed. ke 20:37 Cardiac Injury Profile Reviewed. ke 20:37 Troponin Reviewed. ke 20:37 PT/INR Reviewed. ke 20:37 Type & Screen Reviewed. ke 23:24 Written Provider Order was scanned into [employer] and attached to record. ml3 23:35 Financial registration complete. hs2 23:51 [facility] Payment Agreement was scanned into [employer] and attached to record. 2 06/10 00:02 Admission / Observation Status ordered. EDMS 00:25 CLEAR LIQUIDS DIET ordered. EDMS 00:26 HEMOGLOBIN & HEMATOCRIT Ordered. EDMS 00:26 COMPLETE BLOOD COUNT Ordered. EDMS 00:26 RENAL PROFILE Ordered. EDMS 00:26 HEMOGLOBIN & HEMATOCRIT Ordered. EDMS 00:26 HEMOGLOBIN & HEMATOCRIT Ordered. EDMS 00:26 HEMOGLOBIN & HEMATOCRIT Ordered. EDMS 00:26 CARDIAC MARKER PANEL Ordered. EDMS 00:26 CARDIAC MARKER PANEL Ordered. EDMS 09:31 T-Sheet-- Draft Copy was scanned into [employer] and attached to record. 09:32 ECG/EKG was scanned into [employer] and attached to record. gb Administered Medications: Discontinued: NS 0.9% 1000 ml IV at 100 mL/hr continuous 06/09 20:00 Drug: NS 0.9% 1000 ml [sodium chloride 0.9 % intravenous solution] Route: IV; Rate: 100 mgs mL/hr; Site: right antecubital; Signatures: Dispatcher [employer] EDMS Lizzie Flynn, RN RN Marlyn Montoya, Reg Reg gb George Mcdowell, HEATER HELPER HEATER HELPER Tamy Romeo, Media Technician Unit ml3 Faisal Fabian,RN RN mgs Estela Sanders, Reg Reg hs2 The chart was reviewed and I authenticate all verbal orders and agree with the evaluation and treatment provided.Attachments: 23:24 Written Provider Order 3 23:51 [facility] Payment Agreement 2 01/31 09:31 T-Sheet-- Draft Copy gb 09:32 ECG/EKG gb Chart Complete MTDD
[2016-06-12] MEDS: SLF 3 ML SYR IV SCH ×3 (05:11→21:57)
[2016-06-12] MEDS: cefTRIAXone SOD 2 GM in D5W MINI-BAG PLUS 50 ML IV SCH ×2 (05:11→17:46)
[2016-06-12 05:49] LABS: MEAN CORPUSCULAR HEMOGLOBIN 27.7 pg (27.0-33.0); MEAN CORPUSCULAR HGB CONC 31.8 g/dl (32.0-36.5); MEAN CORPUSCULAR VOLUME 87.2 fl (80.0-96.0); RED CELL DISTRIBUTION WIDTH 16.5 % (11.5-14.5); WHITE BLOOD COUNT 4.2 K/mm3 (4.0-10.0)
[2016-06-12 06:05] LABS: ALBUMIN 2.4 GM/DL (3.2-5.2); CALCIUM LEVEL 8.1 MG/DL (8.8-10.2); CREATININE FOR GFR 5.38 MG/DL (0.70-1.30); PHOSPHORUS LEVEL 4.1 MG/DL (2.5-4.9); POTASSIUM SERUM 4.3 MEQ/L (3.5-5.1)
[2016-06-12] MEDS: CALCIUM ACETATE 667 MG GELCAP PO SCH ×3 (08:58→17:46)
[2016-06-12] MEDS: VITAMIN B COMPLEX/VIT C CAP PO SCH (08:58)
[2016-06-12] MEDS: VITAMIN D 1,000 INTERNATIONAL UNITS TABLET PO SCH (08:58)
[2016-06-12] MEDS: PANTOPRAZOLE 40MG INJ (PROTONIX) (C9113) IV SCH ×2 (08:58→21:57)
[2016-06-12] MEDS: AMIODARONE 200 MG TAB (PACERONE) PO SCH (08:58)
--- NOTE | 2016-06-12 16:19 | IPNPDOC ---
Date Seen The patient was seen on 06/12/16. Progress Note DATE OF ENCOUNTER: 06/12/2016 SUBJECTIVE: Mr. Chamberlain was seen this morning at bedside. He reports that he no longer has bright red blood in his stool. He reports that his stool is almost back to baseline in color. He denies any nausea, vomiting or abdominal pain. He denies any lightheadedness or dizziness. No chest pain, chest pressure or shortness of breath. No fevers or chills. He had hemodialysis yesterday where 2200ml of fluid was removed, which was well-tolerated. OBJECTIVE: Vital Signs Date Time Temp Pulse Resp B/P Pulse Ox O2 Delivery O2 Flow Rate FiO2 06/12/16 12:07 98.0 56 18 140/66 95 Room Air I&O- Last 24 Hours up to 6 AM 06/12/16 06:00 Intake Total 3010 ml Output Total 2200 ml Balance 810 ml GENERAL: Patient is alert and oriented. In no acute distress. HEENT: Normocephalic, atraumatic. Extraocular muscles are intact. Moist mucosa. NECK: Supple. No thyromegaly. Jugular venous distention is not appreciated. HEART: Normal S1, S2. Heart sounds are regular. Positive for systolic ejection murmur. LUNG: Good air movement bilaterally. No rhonchi or wheezing appreciated. ABDOMEN: Soft, nontender, nondistended. Bowel sounds are present. EXTREMITIES: No cyanosis or edema. Positive pedal pulses bilaterally. SKIN: Warm and dry. Good skin turgor. No rashes noted. NEURO: No focal deficits. Motor and sensation intact. LABORATORY DATA: 06/12/16 05:25 MICROBIOLOGY: Blood cultures show no growth thus far. IMAGING: Chest x-ray done on 06/09 revealed some venous hypertension, underlying fibrosis and heavier markings in the right than left base. Bibasilar patchy atelectasis or infiltrates, right greater than left. There is lateral pleural thickening/fluid on the right as seen on multiple prior studies. ASSESSMENT/PLAN: 1. End-stage renal disease on hemodialysis. Volume status and electrolytes are stable. We will continue with normal dialysis schedule of Thursday, Thursday and Thursday. Next dialysis will be 06/13. 2. Acute GI bleed superimposed on chronic anemia in renal disease. He has history of vascular ectasia and diverticulosis. He has been seen by gastroenterology. This is thought to be a diverticular bleed and his hemoglobin is stable. He was given Aranesp and Venofer in dialysis on 06/11. 3. Bradycardia. This was noted on telemetry. He has been on amiodarone due to history of atrial fibrillation, currently sinus rhythm. Cardiology has been consulted. He reports that he follows with a truck body builder apprentice outpatient and they have told him that pacemaker would be the absolute last resort, as they do not think he would tolerate the surgery. 4. Possible pneumonia. Patient is currently on ceftriaxone. Being managed by primary team. 5. History of heart failure. Volume status appears stable. Continue to correct fluid status with hemodialysis. 6. History of hyperphosphatemia. Patient is on PhosLo. GME ATTESTATION GME ATTESTATION My preceptor for this patient encounter was physically present in the building during the encounter and was fully available. As needed, all aspects of the patient interview, examination, medical decision making process, and medical care plan development were reviewed and approved by the preceptor. Preceptor is aware and concurs with the plan as stated in the body of this note and will attest to such by his/her cosignature. ATTENDING NOTE Nephrology: Pt examined today AM. Hb is stable. stools are clearing now. Decrease CBC Q12 hr now. HD in AM. DAHIANA ROCHA DO Jun 12, 2016 16:19 LEANNE GARCIA MD Jun 12, 2016 22:25
--- NOTE | 2016-06-12 16:51 | IPN ---
DATE: 06/12/2016 SUBJECTIVE: The patient is seen and examined in the room today. The patient stopped having bright red blood per rectum. Now for the past 24 hours, the patient started seeing black blood clot in the stool. No overnight events are reported. No chest pain, no shortness of breath. OBJECTIVE: VITAL SIGNS: Temperature 97.6, pulse is 56, respirations 20, blood pressure is 133/63, pulse oximetry is 97% on room air. GENERAL: Fatigue, pale. No sign of acute distress. Alert and oriented times three. HEENT: Normocephalic, atraumatic. Extraocular motors grossly intact. CARDIOVASCULAR: Bradycardia. Irregularly irregular. Positive S1, S2. Positive systolic murmur. RESPIRATORY: No crackles or wheezes. ABDOMEN: Soft, nontender, nondistended. Bowel sounds present. EXTREMITIES: Multiple bruises most significant in the upper extremities. No significant edema. LABORATORY DATA: WBC is 4.2, hemoglobin is 9.4, hematocrit 29.7, platelet count is 117. Sodium is 139, potassium 4.3, chloride 103, carbon dioxide 25, BUN 29, creatinine is 5.3. GFR is 11, fasting glucose is 81. Calcium is 8.1, phosphorous 4.1, albumin 2.4. ASSESSMENT AND PLAN: GI bleed. Production Repairer, Dr. Fuller consulted. Recommend conservative approach. The patient has bright red blood bleeding per rectum. In the last 24 hours, the patient has seen a black blood clot in the stool. Hemoglobin and hematocrit have been monitored every 6 hours and is stable and no need for blood transfusion at this moment. IV fluids discontinued. The patient's diet is resumed. End-stage renal disease with hemodialysis. We appreciate product support sales representative' s assistance. The patient's dialysis days are Thursday, Thursday and Thursday. History of chronic obstructive pulmonary disease (COPD). Currently compensated. History of obstructive sleep apnea (ANTHONY). Per patient, the patient was evaluated by Dr. Gregorio previously. The patient was told that his ANTHONY does not require CPAP. History of atrial fibrillation. The patient has been taking amiodarone 200 mg by mouth every day. Anticoagulation is on hold due to GI bleed. Currently the patient has sustained persistent bradycardia. Radial Drill Operator, Dr. Marin has been consulted. We appreciate the input. Intermittent bradycardia. The patient is probably not a good candidate for pacemaker per patient's telecom sales consultant in [place]. Dr. Marin has been consulted. We appreciate his assistance of the medical management. History of systolic diastolic congestive heart failure. Currently compensated. IV fluids have been discontinued. The patient resumed oral intake. Will monitor input and output and daily weight. History of aortic valvular disease. Hyperlipidemia, on statin. Deep venous thrombosis (DVT) prophylaxis. Due to his GI bleed, the patient is on thromboembolism deterrents (TEDs), sequential and compression devices.
[2016-06-12] MEDS: ROSUVASTATIN 10 MG TAB (CRESTOR) PO SCH (21:57)
[2016-06-12] MEDS: ASPIRIN 81 MG ENTERIC TAB PO SCH (21:57)
[2016-06-13 04:00] VITALS: BP 108/63
[2016-06-13 06:13] LABS: MEAN CORPUSCULAR HEMOGLOBIN 28.1 pg (27.0-33.0); MEAN CORPUSCULAR HGB CONC 32.5 g/dl (32.0-36.5); MEAN CORPUSCULAR VOLUME 86.4 fl (80.0-96.0); RED CELL DISTRIBUTION WIDTH 16.7 % (11.5-14.5); WHITE BLOOD COUNT 5.6 K/mm3 (4.0-10.0)
[2016-06-13 06:18] LABS: ALBUMIN 2.6 GM/DL (3.2-5.2); CALCIUM LEVEL 7.8 MG/DL (8.8-10.2); CREATININE FOR GFR 7.34 MG/DL (0.70-1.30); GLOMERULAR FILTRATION RATE 7.7 (>35); POTASSIUM SERUM 4.4 MEQ/L (3.5-5.1)
[2016-06-13] MEDS: cefTRIAXone SOD 2 GM in D5W MINI-BAG PLUS 50 ML IV SCH ×2 (06:30→17:22)
[2016-06-13] MEDS: SLF 3 ML SYR IV SCH ×3 (06:30→20:22)
[2016-06-13] MEDS: VITAMIN B COMPLEX/VIT C CAP PO SCH (06:31)
[2016-06-13] MEDS: AMIODARONE 200 MG TAB (PACERONE) PO SCH (06:31)
[2016-06-13] MEDS: VITAMIN D 1,000 INTERNATIONAL UNITS TABLET PO SCH (06:31)
[2016-06-13] MEDS: CALCIUM ACETATE 667 MG GELCAP PO SCH ×3 (06:31→17:22)
[2016-06-13 08:00] VITALS: BP 145/67
[2016-06-13] MEDS: PANTOPRAZOLE 40MG INJ (PROTONIX) (C9113) IV SCH ×2 (08:21→20:22)
[2016-06-13] MEDS ORDERED: ENTER DRUG NAME HERE (PATIENT'S OWN MED) INH SCH (09:00)
--- NOTE | 2016-06-13 11:29 | IPNPDOC ---
Date Seen The patient was seen on 06/13/16. Progress Note DATE OF ENCOUNTER: 06/13/2016 SUBJECTIVE: Mr. Chamberlain was seen this morning during hemodialysis. He has not had any further episodes of bright red blood in his stool. According to the nurse, it was still tanisha in appearance overnight. He denies any nausea, vomiting or abdominal pain. He denies any lightheadedness or dizziness. No chest pain, chest pressure or shortness of breath. No fevers or chills. OBJECTIVE: Vital Signs Date Time Temp Pulse Resp B/P Pulse Ox O2 Delivery O2 Flow Rate FiO2 06/13/16 08:17 Room Air 06/13/16 08:00 97.0 65 18 145/67 96 I&O- Last 24 Hours up to 6 AM 06/13/16 06:00 Intake Total 2095 ml Output Total 1600 ml Balance 495 ml GENERAL: Patient is alert and oriented. In no acute distress. HEENT: Normocephalic, atraumatic. Extraocular muscles are intact. Moist mucosa. NECK: Supple. No thyromegaly. Jugular venous distention is not appreciated. HEART: Normal S1, S2. Heart sounds are regular. Positive for systolic ejection murmur. LUNG: Good air movement bilaterally. No rhonchi or wheezing appreciated. ABDOMEN: Soft, nontender, nondistended. Bowel sounds are present. EXTREMITIES: No cyanosis or edema. Positive pedal pulses bilaterally. SKIN: Warm and dry. Good skin turgor. No rashes noted. NEURO: No focal deficits. Motor and sensation intact. LABORATORY DATA: 06/13/16 05:38 MICROBIOLOGY: Blood cultures show no growth thus far. IMAGING: Chest x-ray done on 06/09 revealed some venous hypertension, underlying fibrosis and heavier markings in the right than left base. Bibasilar patchy atelectasis or infiltrates, right greater than left. There is lateral pleural thickening/fluid on the right as seen on multiple prior studies. ASSESSMENT/PLAN: 1. End-stage renal disease on hemodialysis. Volume status and electrolytes are stable. He is being dialyzed today, with a goal of removing 2.5 L. Continue with normal dialysis schedule of Thursday, Thursday and Thursday. 2. Acute GI bleed superimposed on chronic anemia in renal disease. He has history of vascular ectasia and diverticulosis. He has been seen by gastroenterology. This is thought to be a diverticular bleed and his hemoglobin is stable. He was given Aranesp and Venofer in dialysis on 06/11. 3. Bradycardia. This was noted on telemetry. He has been on amiodarone due to history of atrial fibrillation, currently sinus rhythm. Cardiology has been consulted. He reports that he follows with a suit attendant outpatient and they have told him that pacemaker would be the absolute last resort, as they do not think he would tolerate the surgery. 4. Possible pneumonia. Patient remains on ceftriaxone. Being managed by primary team. 5. History of heart failure. Volume status appears stable. Continue to correct fluid status with hemodialysis. 6. History of hyperphosphatemia. Patient is on PhosLo. DISPOSITION: On a renal standpoint, patient is stable. It appears that his blood counts have also remained stable. He can be discharged when medically cleared to continue with maintenance hemodialysis. GME ATTESTATION GME ATTESTATION My preceptor for this patient encounter was physically present in the building during the encounter and was fully available. As needed, all aspects of the patient interview, examination, medical decision making process, and medical care plan development were reviewed and approved by the preceptor. Preceptor is aware and concurs with the plan as stated in the body of this note and will attest to such by his/her cosignature. ATTENDING NOTE Nephrology: Pt seen and examined during HD. He is tolerated the procedure well. Hb is stable , No need of PRBC transfusion at this time. Possible DC home in AM if Hb stays stable. DAHIANA ROCHA DO Jun 13, 2016 11:29 LEANNE GARCIA MD Jun 15, 2016 21:59
[2016-06-13 13:45] VITALS: BP 120/56
[2016-06-13 16:00] VITALS: BP 145/63
--- NOTE | 2016-06-13 16:42 | IPN ---
DATE: 06/13/2016 SUBJECTIVE: The patient is seen and examined in the room today. Patient stated he had one bowel movement yesterday evening and the stool is dark, but there is no right red blood in the stool. No overnight events are reported. OBJECTIVE: VITAL SIGNS: Temperature 97, pulse is 65, respirations 18, blood pressure is 145/67, pulse oximetry is 96% on room air. GENERAL: No sign of acute distress. Alert and oriented times three. HEENT: Normocephalic, atraumatic. Extraocular motors grossly intact. CARDIOVASCULAR: Intermittent bradycardia. Irregularly irregular. Positive S1, S2. Positive systolic murmur. RESPIRATORY: No crackles or wheezes. Clear to auscultation bilaterally. ABDOMEN: Soft, nontender, nondistended. Bowel sounds present. No rebound or guarding. EXTREMITIES: Multiple bruises most significant in the upper extremities. No edema. LABORATORY DATA: WBC is 5.6, hemoglobin is 9.7, hematocrit 29.9, platelet count is 124. Sodium is 138, potassium 4.4, chloride 101, carbon dioxide 26, BUN 43, creatinine is 7.3. GFR is 7.7, fasting glucose is 106. Calcium is 7.8, phosphorous 5, albumin 2.6. ASSESSMENT AND PLAN: 1. GI bleed. Resolving. Molded Candles Wicker specialist Dr. Fuller is being consulted. Recommend medical management. Hemoglobin and hematocrit has been stable. We will continue to monitor patient's intake. We will follow with physical therapy. 2. -stage renal disease with hemodialysis. The patient's dialysis days are Thursday, Thursday and Thursday. 3. tory of chronic obstructive pulmonary disease (COPD). Currently compensated. 4. History of obstructive sleep apnea (ANTHONY). Patient was preciously evaluated and patient determined not to need continuous positive airway pressure (CPAP). 5. History of atrial fibrillation. Amiodarone 200 mg by mouth every day. Current anticoagulation is on hold due to GI bleed. Patient currently having intermittent bradycardia, Electrical Panel Builder Dr. Marin has been consulted. We appreciate the input. 6. Intermittent bradycardia. 7. History of systolic and diastolic congestive heart failure. Currently compensated. 8. History of aortic valvular disease. 9. Hyperlipidemia, on statin. 10. Deep venous thrombosis (DVT) prophylaxis. Due to his GI bleed, the patient is on any type of anticoagulation. Continue compressive device and thromboembolism deterrents (TEDs) and sequentials.
[2016-06-13] MEDS: ASPIRIN 81 MG ENTERIC TAB PO SCH (20:22)
[2016-06-13] MEDS: ROSUVASTATIN 10 MG TAB (CRESTOR) PO SCH (20:22)
[2016-06-13 21:35] VITALS: BP 135/64
[2016-06-13 23:59] VITALS: BP 130/62
[2016-06-14 04:29] VITALS: BP 117/56
[2016-06-14] MEDS: SLF 3 ML SYR IV SCH (05:23)
[2016-06-14] MEDS: cefTRIAXone SOD 2 GM in D5W MINI-BAG PLUS 50 ML IV SCH (05:23)
[2016-06-14 05:54] LABS: MEAN CORPUSCULAR HEMOGLOBIN 27.8 pg (27.0-33.0); MEAN CORPUSCULAR HGB CONC 31.6 g/dl (32.0-36.5); MEAN CORPUSCULAR VOLUME 88.1 fl (80.0-96.0); RED CELL DISTRIBUTION WIDTH 16.9 % (11.5-14.5); WHITE BLOOD COUNT 5.4 K/mm3 (4.0-10.0)
[2016-06-14 06:01] LABS: ALBUMIN 2.5 GM/DL (3.2-5.2); CALCIUM LEVEL 8.3 MG/DL (8.8-10.2); CREATININE FOR GFR 5.16 MG/DL (0.70-1.30); GLOMERULAR FILTRATION RATE 11.5 (>35); PHOSPHORUS LEVEL 3.2 MG/DL (2.5-4.9); POTASSIUM SERUM 4.5 MEQ/L (3.5-5.1)
[2016-06-14 08:00] VITALS: BP 120/57
[2016-06-14] MEDS: AMIODARONE 200 MG TAB (PACERONE) PO SCH (09:11)
[2016-06-14] MEDS: CALCIUM ACETATE 667 MG GELCAP PO SCH ×2 (09:11→12:37)
[2016-06-14] MEDS: PANTOPRAZOLE 40MG INJ (PROTONIX) (C9113) IV SCH (09:11)
[2016-06-14] MEDS: VITAMIN B COMPLEX/VIT C CAP PO SCH (09:11)
[2016-06-14] MEDS: VITAMIN D 1,000 INTERNATIONAL UNITS TABLET PO SCH (09:11)
--- NOTE | 2016-06-14 12:18 | IPNPDOC ---
Date Seen The patient was seen on 06/14/16. Progress Note DATE OF ENCOUNTER: 06/14/2016 SUBJECTIVE: Mr. Chamberlain was seen this morning at bedside. No acute overnight issues. He had hemodialysis yesterday where 2200 mL of fluid was removed. Dialysis was well tolerated. He is not having any more bloody bowel movements. He reports that he feels well and is eating well. He denies any nausea, vomiting or abdominal pain. He denies any lightheadedness, dizziness, chest pain , chest pressure or shortness of breath. No fevers or chills. OBJECTIVE: Vital Signs Date Time Temp Pulse Resp B/P Pulse Ox O2 Delivery O2 Flow Rate FiO2 06/14/16 08:00 97.2 65 18 120/57 96 Room Air I&O- Last 24 Hours up to 6 AM 06/14/16 06:00 Intake Total 1840 ml Output Total 2200 ml Balance -360 ml GENERAL: Patient is alert and oriented. In no acute distress. HEENT: Normocephalic, atraumatic. Extraocular muscles are intact. Moist mucosa. NECK: Supple. No thyromegaly. Jugular venous distention is not appreciated. HEART: Normal S1, S2. Heart sounds are regular. Positive for systolic ejection murmur. LUNG: Good air movement bilaterally. No rhonchi or wheezing appreciated. ABDOMEN: Soft, nontender, nondistended. Bowel sounds are present. EXTREMITIES: No cyanosis or edema. Positive pedal pulses bilaterally. SKIN: Warm and dry. Good skin turgor. No rashes noted. NEURO: No focal deficits. Motor and sensation intact. LABORATORY DATA: 06/14/16 05:22 MICROBIOLOGY: Blood cultures show no growth thus far. IMAGING: Chest x-ray done on 06/09 revealed some venous hypertension, underlying fibrosis and heavier markings in the right than left base. Bibasilar patchy atelectasis or infiltrates, right greater than left. There is lateral pleural thickening/fluid on the right as seen on multiple prior studies. ASSESSMENT/PLAN: 1. End-stage renal disease on hemodialysis. Volume status and electrolytes are stable. Continue with normal dialysis schedule of Thursday, Thursday and Thursday. 2. Acute GI bleed superimposed on chronic anemia in renal disease. He has history of vascular ectasia and diverticulosis. He has been seen by gastroenterology. This is thought to be a diverticular bleed and his hemoglobin has remained stable, not requiring transfusion during hospitalization. Aranesp and Venofer were initiated in dialysis on 06/11. 3. Bradycardia. This was noted on telemetry. He has been on amiodarone due to history of atrial fibrillation, currently sinus rhythm. Cardiology has been consulted. He reports that he follows with a manager sound outpatient and they have told him that pacemaker would be the absolute last resort, as they do not think he would tolerate the surgery. He will certainly need to follow-up with his manager sound as outpatient. 4. Possible pneumonia. Complete course of antibiotics. 5. History of heart failure. Volume status appears stable. Continue to correct fluid status with hemodialysis. 6. History of hyperphosphatemia. Patient is on PhosLo. DISPOSITION: On a renal standpoint, patient is stable. He is being discharged today. Continue with maintenance hemodialysis. GME ATTESTATION GME ATTESTATION My preceptor for this patient encounter was physically present in the building during the encounter and was fully available. As needed, all aspects of the patient interview, examination, medical decision making process, and medical care plan development were reviewed and approved by the preceptor. Preceptor is aware and concurs with the plan as stated in the body of this note and will attest to such by his/her cosignature. DAHIANA ROCHA DO Jun 14, 2016 12:18
[2016-06-14] MEDS ORDERED: LEVA500T PO (12:35)
[2016-06-14] MEDS ORDERED: LEVA250T PO (12:38)
--- NOTE | 2016-06-14 20:09 | CR ---
DATE OF CONSULTATION: 06/13/2016 REFERRING PROVIDER: Dr. Lizbeth Rajan REASON FOR CONSULTATION: Sick sinus syndrome. HISTORY OF PRESENT ILLNESS: 80-year-old male with history of ischemic cardiomyopathy, left bundle branch block, atrial flutter, and paroxysmal atrial fibrillation, came to the hospital on 06/10/2016, after passing bright red blood from the rectum. He also was short of breath upon presentation to the hospital, but his vital signs were stable. This started about 2-3 days prior to coming to the hospital. He was admitted for further management and monitoring. He was evaluated by his patient consumer marketer and the suspicion was that he was having diverticulitis. He was started on IV antibiotics. He was also seen by nephrology. He has been on hemodialysis. While in the hospital, he was found to have a slow heart rate at times and cardiology consult was called. When I saw Mr. Nj Chamberlain today and yesterday, he was sitting in the chair and in no acute distress at rest. His heart rate this evening and most of the time during the day varied between 60-80 beats per minute. He denies any chest pain or palpitations, shortness of breath, or orthopnea. He has been going to hemodialysis. He goes three times a week on Thursday, Thursday, and Thursday and has been tolerating it well. He denies any active bleeding. His hemoglobin and hematocrit have been stable and did not receive any blood transfusions. He denies any cough, hemoptysis, or fever. He has no focal manifestation. He has no nausea, vomiting, or abdominal pain. There is no fever or chills. PAST MEDICAL HISTORY: He has a past medical history positive as mentioned above for coronary artery disease with history of percutaneous transluminal coronary angioplasty (PTCA) and stents, ischemic cardiomyopathy with a mildly depressed global left ventricular systolic function, atrial flutter which was ablated in the past, paroxysmal atrial fibrillation for which he has been on antiarrhythmic drugs, hypertension, hyperlipidemia, end-stage renal disease for which he has been on hemodialysis, abnormal EKG with left bundle branch block, anemia. He does have a history of myocardial infarction, obstructive sleep apnea, valvular heart disease involving the aortic valve/aortic stenosis. There is no history of cerebrovascular accident (CVA), diabetes mellitus, or thyroid disorders. Also, history of peripheral arterial disease involving his carotid arteries. PAST SURGICAL HISTORY: Positive for bilateral cataract extraction in 1991 and 1992, AV fistula in the left upper extremity in 2009 for hemodialysis, right carotid endarterectomy in 2008, tonsillectomy, transurethral resection of bladder tumor (TURBT) on 11/09/2013, and skin lesion removal in 2004 and 2008. MEDICATIONS PRIOR TO COMING TO THE HOSPITAL: - Vastatin 10 mg by mouth daily - Protonix 40 mg by mouth daily - Procrit as needed - calcium one tablet by mouth three times a day - aspirin 81 mg by mouth daily - amiodarone 200 mg by mouth daily - Anoro Ellipta 62.5/25 mcg inhalation daily - vitamin D 2000 units daily - multivitamin one tablet by mouth daily CURRENT MEDICATIONS: - iron supplement 100 mg IV with hemodialysis - Aranesp 100 mcg IV with hemodialysis - ceftriaxone two grams IV every 12 hours - amiodarone 200 mg by mouth daily - vitamin D 2000 units by mouth daily - vitamin D Complex one capsule by mouth daily - calcium 667 mg by mouth with meals - DuoNeb by nebulizer four times a day as needed for shortness of breath - aspirin 81 mg by mouth daily - Vastatin 10 mg by mouth daily - pantoprazole 40 mg IV twice a day FAMILY HISTORY: Noncontributory. SOCIAL HISTORY: Patient lives in the [place] area with his . He is a retired freight booker. He has a supportive family. He does not smoke or abuse alcohol. He has three children. ALLERGIES: 1. AMINOGLYCOSIDES. 2. BACITRACIN. 3. LATEX. 4. NEOMYCIN. 5. POLYMYXIN B. 6. SIMVASTATIN. ADVANCED DIRECTIVES: Patient is a full code. PHYSICAL EXAMINATION: GENERAL: Patient is alert and oriented, in no acute distress at rest and very pleasant. VITAL SIGNS: His vital signs when I saw him revealed a blood pressure of 145/63 with a pulse of 62, respirations 18, and his temperature was 97.3 degrees Fahrenheit with an oxygen saturation of 96% on room air. HEENT: Atraumatic. NECK: Supple. Carotid bruits heard. LUNGS: Revealed crackles at the level of the right base. No wheezing. HEART: The heart examination revealed normal S1 and S2 without gallops. The point of maximum impulse (PMI) is slightly displaced inferiorly and laterally. There is no rub. There is a systolic murmur grade 2-3 over 6 at the base with some radiation to the neck. ABDOMEN: Unremarkable. EXTREMITIES: Revealed trace to +1 bilateral pedal edema. AV fistula noted in the left upper extremity. NEUROLOGICAL: Grossly negative for focal deficit. LABS: CBC done today revealed a WBC of 5.6, hemoglobin 9.7, hematocrit 29.9, and platelets 124,000. On admission, the CBC revealed a WBC of 5.0, hemoglobin 12.1, hematocrit 39.0, and platelets 137,000. BMP done today revealed a sodium of 138, potassium 4.4, chloride 101, CO2 26, BUN 43, creatinine 7.34, calcium 7.8, phosphorus 5.0, and albumin 2.6. On admission, the BMP revealed a sodium of 144, potassium 4.4, chloride 101, CO2 33, BUN 37, creatinine 6.20, fasting glucose 122, calcium 8.1. Liver enzymes on admission revealed a total bilirubin of 0.3, direct bilirubin less than 0.01, AST 398, ALT 49, alkaline phosphatase 184, total protein 6.8, and albumin 3.1. Serum troponin I was normal, 0.04, 0.05, and 0.05 respectively #1 up to #3. BNP is 1560. PT on admission was 13.3 with an INR of 1.0. Chest x-ray on admission revealed bibasilar atelectasis or infiltrate, greater on the right than the left. No manifestation of heart failure or effusion. Electrocardiogram on admission revealed normal sinus rhythm with left axis deviation, left bundle branch block, and nonspecific ST-T abnormalities. Electrocardiogram on 06/11/2016, did not reveal any significant changes, but slower heart rate at 50 beats per minute. Telemetry was reviewed and revealed sinus rhythm with interventricular conduction delay (IVCD) and multiple 2.0 to 2.6 second pauses were noted most of the time during the night while sleeping. IMPRESSION: 1. Sinus bradycardia in this 80-year-old male with history of underlying sick sinus syndrome, asymptomatic. Patient currently is only on amiodarone and I will continue the same. When I saw him, I decreased the amiodarone, but after reviewing the telemetry strips, it was decided to continue the same medication and upon discharge he can contact his primary rating clerk, Dr. Stuart in [place], for an appointment and further monitoring. At this present time, there is no indication for a permanent pacemaker implantation. While in the hospital, he should remain on the telemetry floor. 2. History of coronary artery disease with myocardial infarction/mildly depressed left ventricular ejection fraction (LVEF). Stable on current medications. 3. History of ischemic cardiomyopathy, LVEF is mildly depressed. Compensated and no manifestation of congestive heart failure. He is not on NIKI inhibitor or angiotensin receptor jordan (ARB) in view of his underlying kidney disease. He is not on beta jordan because of his underlying sick sinus syndrome. 4. Aortic stenosis. He is being monitored. He had a recent cardiac catheterization and there was no indication for aortic valve replacement. 5. End-stage renal disease (ESRD), being addressed on hemodialysis. 6. Diverticulitis, also being addressed. Patient was seen in the hospital by his patient consumer marketer. 7. Anemia secondary to acute blood loss due to lower gastrointestinal (GI) bleed. He is being monitored. There has not been any need for hemodialysis. 8. History of hypertension, under control. 9. History of hyperlipidemia, on a statin. 10. History of peripheral arterial disease. It was a pleasure to participate in the care of Mr. Nj Chamberlain for his underlying cardiac condition. I will continue to monitor him along with you while in the hospital. Dr. Wood will be covering this weekend. Please do not hesitate to call him if any issues. The case was discussed earlier today with his hospitalist and to be discussed again tomorrow with him.
--- NOTE | 2016-06-14 22:19 | DSES ---
DATE OF ADMISSION: 06/10/2016 DATE OF DISCHARGE: 06/14/2016 PRIMARY CARE PROVIDER: Stewart Everett at [facility] CONSULTANTS: Gastrointestinal specialist, Dr. Fuller. Card Lacer Jacquard, Dr. Marin. Marketing Communications Manager, Dr. Dahl. PROCEDURES: None. COMPLICATIONS: None. ADMISSION/DISCHARGE DIAGNOSES: 1. Diverticular gastrointestinal bleed. 2. End stage renal disease, on hemodialysis. 3. History of chronic obstructive pulmonary disease (COPD). 4. History of obstructive sleep apnea. 5. History of atrial fibrillation. 6. Intermittent bradycardia. 7. History of systolic and diastolic congestive heart failure (CHF). 8. History of aortic valve disease. 9. Hyperlipidemia. HOSPITALIZATION COURSE: The patient is an 80-year-old male who presented to [facility] on 06/09/2016 for bright red blood per rectum. Due to significant medical history of cardiac disease, the patient is admitted to progressive care unit (PCU) for telemetry monitoring, and the patient's hemoglobin and hematocrit were checked every 6 hours, and the patient was started on Protonix. Later, the GI specialist, Dr. Fuller, has been consulted and no aggressive intervention is recommended and the patient proceeded conservative medical management. Dr. Dahl is consulted for the patient's hemodialysis. During the admission, the patient's chest x-ray was reviewed. There is a concern that the patient may have a developing pneumonia, and the patient was started on intravenous Rocephin. Within one to two days of the hospitalization, the patient has resolution of bright red blood per rectum. The patient started seeing blood clots in the stool and later stool turned to brownish color without sign of the blood. During the hospitalization, the patient has been noted to have intermittent bradycardia with heart rate approaching around 35 to 40s. The maintenance carpenter, Dr. Marin, has been consulted for atrial fibrillation/intermittent bradycardia medical management. The patient was determined to be a poor surgical candidate. No aggressive procedures or surgeries would benefit the patient. All the patient's care has been leaned toward medical management. The patient was cleared by physical therapy (PT) on 06/13/2016 and on 06/14/2016 in discussing with all the specialists, the patient was determined to be medically stable for discharge with recommendation to followup with the primary care provider in [facility] within 1 to 2 weeks. The patient should followup with outpatient hemodialysis center on Thursday to continue his hemodialysis. The patient is instructed to contact his outpatient maintenance carpenter in [place] with regard to his amiodarone dosage. OBJECTIVE: VITAL SIGNS: Temperature is 97.2, pulse is 65, respirations 18, blood pressure 120/57, pulse oximetry 96% on room air. LABORATORY DATA: WBC 5.4, hemoglobin 9, hematocrit 28.6, platelet count is 143. Sodium is 140, potassium 4.5, chloride is 102, carbon dioxide 29, BUN 23, creatinine 5.16, GFR is 11.6, fasting glucose 96, calcium 8.3, phosphorous 3.2, albumin 2.5. PT is 13.3, INR is 1.0. IMAGING STUDIES: Chest x-ray showed no cardiomegaly, venous hypertension with underlying fibrosis and heavy marking at the right base. Basilar patchy atelectasis or infiltrate. Lateral pleural thickening/fluid of the right. The patient is recommended to continue renally dosed Levaquin for the patient's pneumonia. DISCHARGE MEDICATIONS: - Levaquin 250 mg by mouth for two days, four pills - albuterol/ipratropium inhalation four times a day as needed - amiodarone 200 mg by mouth daily - Anoro Ellipta inhalation daily - aspirin 81 mg by mouth daily - calcium acetate 67 mg by mouth with meals - vitamin D 2000 units by mouth daily - Epogen 1000 units weekly - pantoprazole 40 mg by mouth twice a day - Crestor 10 mg by mouth at night - vitamin B/C pill one tablet by mouth daily DISCHARGE INSTRUCTIONS: Discontinue line. Discharge home. Activity as tolerated. The patient should continue taking renally dosed oral levofloxacin for four more pills. The patient should followup with the primary care doctor at [facility] within 1 to 2 weeks. The patient should followup with hemodialysis center in 2 days to resume his routine hemodialysis. The patient should contact his outpatient maintenance carpenter in [place] with regard to the amiodarone dosage adjustment for his intermittent bradycardia. Discharge condition: Fair. Discharge time was greater than 30 minutes. MTDD
== END 2016-06-14 13:28 | disposition home or self-care (01) | DRG 377 ==
LOC: M ED 17:57 → M ED INP 06-10 → M PCU 06-10 01:18
PROVIDERS: ADMIT Hospitalist; ATTEND Internal Medicine
PROC: 5A1D00Z (ICD-10-PCS; principal; 2016-06-11)
DX: K57.91 Diverticulosis of intestine, part unspecified, without perforation or abscess with bleeding (principal); N18.6 End stage renal disease; J18.9 Pneumonia, unspecified organism; I50.42 Chronic combined systolic (congestive) and diastolic (congestive) heart failure; I48.92 Unspecified atrial flutter; E87.70 Fluid overload, unspecified; J44.9 Chronic obstructive pulmonary disease, unspecified; G47.33 Obstructive sleep apnea (adult) (pediatric); I35.9 Nonrheumatic aortic valve disorder, unspecified; I48.0 Paroxysmal atrial fibrillation; K31.811 Angiodysplasia of stomach and duodenum with bleeding; E83.39 Other disorders of phosphorus metabolism; I49.5 Sick sinus syndrome; I25.10 Atherosclerotic heart disease of native coronary artery without angina pectoris; D63.1 Anemia in chronic kidney disease; I44.7 Left bundle-branch block, unspecified; K21.9 Gastro-esophageal reflux disease without esophagitis; E78.5 Hyperlipidemia, unspecified; Z79.4 Long term (current) use of insulin; Z99.2 Dependence on renal dialysis; Z79.82 Long term (current) use of aspirin; Z79.899 Other long term (current) drug therapy; Z91.040 Latex allergy status; Z88.1 Allergy status to other antibiotic agents; Z88.8 Allergy status to other drugs, medicaments and biological substances; I25.2 Old myocardial infarction; Z95.9 Presence of cardiac and vascular implant and graft, unspecified; Z87.891 Personal history of nicotine dependence; Z91.19 Patient's noncompliance with other medical treatment and regimen; Z82.49 Family history of ischemic heart disease and other diseases of the circulatory system; Z84.1 Family history of disorders of kidney and ureter; Z83.6 Family history of other diseases of the respiratory system

== ENCOUNTER → 2017-05-07 | Outpatient (REF) | payer MEDICARE, OTHER | LOC: M LAB REF 11:51 | DX: C44.42 Squamous cell carcinoma of skin of scalp and neck (principal) | CPT/HCPCS: 88305 ==

== ENCOUNTER 2017-06-05 19:48 | Inpatient (IN) | payer MEDICARE, BC, OTHER ==
[2017-06-05] MEDS: NS 1,000 ML IV ×7 (20:00→23:00)
[2017-06-05] MEDS: ONDANSETRON 4MG/2ML VIAL (J2405) IV (20:15)
[2017-06-05] MEDS: ACETAMINOPHEN 650 MG SUPP PR (20:15)
[2017-06-05] MEDS: ACETAMINOPHEN 325 MG SUPP PR (20:15)
[2017-06-05 20:28] LABS: BASO % 0.4 % (0.0-1.0); EOS % 0.4 % (0.0-3.0); HEMATOCRIT 39.5 % (42.0-52.0); HEMOGLOBIN 12.4 g/dl (14.0-18.0); IMMATURE GRANULOCYTE % 0.3 % (0-0); MEAN CORPUSCULAR HGB CONC 31.4 g/dl (32.0-36.5); MEAN CORPUSCULAR VOLUME 95.6 fl (80.0-96.0); MONO # 0.4 10^3/uL (0.0-0.8); NEUTROPHILS # 8.6 10^3/uL (1.8-7.7); NEUTROPHILS % 93.2 % (36.0-66.0); PLATELET COUNT, AUTOMATED 139 10^3/uL (150-450); RED BLOOD COUNT 4.13 10^6/uL (4.30-6.10); RED CELL DISTRIBUTION WIDTH 15.9 % (11.5-14.5); WHITE BLOOD COUNT 9.2 10^3/uL (4.0-10.0)
[2017-06-05 20:40] LABS: INR 1.01; PROTHROMBIN TIME 13.4 SECONDS (12.4-14.5)
[2017-06-05 20:52] LABS: LACTIC ACID SEPSIS PROTOCOL 1.6 MMOL/L (0.4-2.0)
[2017-06-05 20:56] LABS: ALBUMIN 3.9 GM/DL (3.2-5.2); ALBUMIN/GLOBULIN RATIO 0.91 (1.00-1.93); ALKALINE PHOSPHATASE 205 U/L (45-117); ALT/SGPT 33 U/L (12-78); ANION GAP 7 MEQ/L (8-16); AST/SGOT 39 U/L (7-37); BILIRUBIN,DIRECT 0.2 MG/DL (0.0-0.2); BILIRUBIN,TOTAL 0.6 MG/DL (0.2-1.0); BLOOD UREA NITROGEN 23 MG/DL (7-18); CALCIUM LEVEL 9.2 MG/DL (8.8-10.2); CARBON DIOXIDE LEVEL 33 MEQ/L (21-32); CHLORIDE LEVEL 100 MEQ/L (98-107); CK-MB VALUE MASS 1.6 NG/ML (0.0-3.6); CPK CREATINE PHOSPHOKINASE 61 U/L (39-308); CREATININE FOR GFR 4.78 MG/DL (0.70-1.30); GLOMERULAR FILTRATION RATE 12.6 (>35); GLUCOSE, FASTING 103 MG/DL (70-100); LIPASE 287 U/L (73-393); MB/CK RELATIVE INDEX 2.62 (< OR =4); POTASSIUM SERUM 4.8 MEQ/L (3.5-5.1); SODIUM LEVEL 140 MEQ/L (136-145); TOTAL PROTEIN 8.2 GM/DL (6.4-8.2); TROPONIN I 0.04 NG/ML (< 0.10)
[2017-06-05 21:22] LABS: LYMPH # 0.2 10^3/uL (1.5-4.5); POSITIVE DIFF POS FLAG
[2017-06-05 21:23] LABS: LYMPH % 1.7 % (24.0-44.0)
[2017-06-05] MEDS ORDERED: ONDANSETRON 4MG/2ML VIAL (J2405) IV (22:00)
[2017-06-05] MEDS ORDERED: ACETAMINOPHEN TAB 650MG DOSE (2X325MG) PO (22:00)
[2017-06-05] MEDS: PIPERACILLIN/TAZOBACTAM SOD 2.25 GM in APPROPRIATE DILUENT 1 EA IV (23:20)
[2017-06-06 00:16] LABS: CPK CREATINE PHOSPHOKINASE 78 U/L (39-308); MB/CK RELATIVE INDEX 1.28 (< OR =4); TROPONIN I 0.09 NG/ML (< 0.10)
[2017-06-06] MEDS: VANCOMYCIN HCL 1,000 MG, VIAL MATE ADAPTER 1 EACH in D5W 250 ML IV (00:16)
[2017-06-06] MEDS: VANCOMYCIN HCL 500 MG in D5W MINI-BAG PLUS 100 ML IV (01:00)
[2017-06-06] MEDS: HEPARIN SOD (PORCINE) 5000 UNITS/ML VIAL SC ×3 (05:05→22:30)
[2017-06-06 06:50] LABS: BASO % 0.3 % (0.0-1.0); HEMATOCRIT 31.4 % (42.0-52.0); IMMATURE GRANULOCYTE # 0.1 10^3/uL (0-0); IMMATURE GRANULOCYTE % 0.5 % (0-0); LYMPH % 1.4 % (24.0-44.0); MEAN CORPUSCULAR HEMOGLOBIN 30.8 pg (27.0-33.0); MEAN CORPUSCULAR HGB CONC 31.2 g/dl (32.0-36.5); MEAN CORPUSCULAR VOLUME 98.7 fl (80.0-96.0); MONO # 0.7 10^3/uL (0.0-0.8); MONO % 5.4 % (0.0-5.0); NEUTROPHILS # 12.2 10^3/uL (1.8-7.7); NEUTROPHILS % 92.4 % (36.0-66.0); PLATELET COUNT, AUTOMATED 120 10^3/uL (150-450); RED BLOOD COUNT 3.18 10^6/uL (4.30-6.10); RED CELL DISTRIBUTION WIDTH 16.3 % (11.5-14.5); WHITE BLOOD COUNT 13.2 10^3/uL (4.0-10.0)
[2017-06-06 06:59] LABS: HEMOGLOBIN 9.8 g/dl (14.0-18.0); LYMPH # 0.2 10^3/uL (1.5-4.5); POSITIVE DIFF POS FLAG
[2017-06-06 07:07] LABS: ANION GAP 7 MEQ/L (8-16); BLOOD UREA NITROGEN 31 MG/DL (7-18); CALCIUM LEVEL 8.3 MG/DL (8.8-10.2); CARBON DIOXIDE LEVEL 29 MEQ/L (21-32); CHLORIDE LEVEL 105 MEQ/L (98-107); CPK CREATINE PHOSPHOKINASE 119 U/L (39-308); CREATININE FOR GFR 5.67 MG/DL (0.70-1.30); GLOMERULAR FILTRATION RATE 10.3 (>35); GLUCOSE, FASTING 98 MG/DL (70-100); POTASSIUM SERUM 4.7 MEQ/L (3.5-5.1); SODIUM LEVEL 141 MEQ/L (136-145); TROPONIN I 0.15 NG/ML (< 0.10)
[2017-06-06 07:12] LABS: MB/CK RELATIVE INDEX 0.84 (< OR =4)
[2017-06-06] MEDS: PANTOPRAZOLE 40MG TAB (PROTONIX) PO ×2 (08:15→22:29)
[2017-06-06] MEDS: VITAMIN B COMPLEX/VIT C CAP PO (08:15)
[2017-06-06] MEDS: MULTIVITAMINS/MINERALS THERAP 1 TAB PO (08:15)
[2017-06-06] MEDS: (RENVELA) SEVELAMER **CARBONate** 800 MG TAB PO ×3 (08:15→17:54)
[2017-06-06] MEDS: VITAMIN D 1,000 INTERNATIONAL UNITS TABLET PO (08:16)
[2017-06-06] MEDS: AMIODARONE 200 MG TAB (PACERONE) PO (08:16)
[2017-06-06] MEDS ORDERED: (RENVELA) SEVELAMER **CARBONate** 800 MG TAB PO (09:00)
[2017-06-06] MEDS: methylPREDNISolone INJ 40 MG/1 ML VIAL (J2920) IV (10:11)
[2017-06-06] MEDS: PIPERACILLIN/TAZOBACTAM SOD 2.25 GM in APPROPRIATE DILUENT 1 EA IV ×2 (10:11→22:31)
[2017-06-06] MEDS: NS 1,000 ML IV (11:02)
[2017-06-06 13:14] LABS: CPK CREATINE PHOSPHOKINASE 167 U/L (39-308)
[2017-06-06 13:15] LABS: CK-MB VALUE MASS 1.3 NG/ML (0.0-3.6); MB/CK RELATIVE INDEX 0.77 (< OR =4)
[2017-06-06] MEDS: CHECK TO SEE IF PATIENT IS RECEIVING DIALYSIS TODAY AND REFER TO THE VANCOMYCIN ORDER XX (15:18)
[2017-06-06 18:50] LABS: CK-MB VALUE MASS 1.8 NG/ML (0.0-3.6); CPK CREATINE PHOSPHOKINASE 161 U/L (39-308); MB/CK RELATIVE INDEX 1.11 (< OR =4); TROPONIN I 0.19 NG/ML (< 0.10)
[2017-06-06] MEDS: ASPIRIN 81 MG ENTERIC TAB PO (22:29)
[2017-06-06] MEDS: ROSUVASTATIN 10 MG TAB (CRESTOR) PO (22:29)
[2017-06-07 00:55] LABS: CK-MB VALUE MASS 2.1 NG/ML (0.0-3.6); CPK CREATINE PHOSPHOKINASE 133 U/L (39-308); MB/CK RELATIVE INDEX 1.57 (< OR =4); TROPONIN I 0.19 NG/ML (< 0.10)
[2017-06-07 05:08] LABS: BASO % 0.2 % (0.0-1.0); HEMATOCRIT 29.4 % (42.0-52.0); HEMOGLOBIN 9.1 g/dl (14.0-18.0); IMMATURE GRANULOCYTE # 0.1 10^3/uL (0-0); IMMATURE GRANULOCYTE % 0.6 % (0-0); LYMPH # 0.4 10^3/uL (1.5-4.5); LYMPH % 3.7 % (24.0-44.0); MEAN CORPUSCULAR HEMOGLOBIN 30.7 pg (27.0-33.0); MEAN CORPUSCULAR VOLUME 99.3 fl (80.0-96.0); MONO # 0.5 10^3/uL (0.0-0.8); MONO % 5.3 % (0.0-5.0); NEUTROPHILS # 9.1 10^3/uL (1.8-7.7); NEUTROPHILS % 90.2 % (36.0-66.0); PLATELET COUNT, AUTOMATED 104 10^3/uL (150-450); RED BLOOD COUNT 2.96 10^6/uL (4.30-6.10); RED CELL DISTRIBUTION WIDTH 16.2 % (11.5-14.5); WHITE BLOOD COUNT 10.1 10^3/uL (4.0-10.0)
[2017-06-07 05:39] LABS: ANION GAP 8 MEQ/L (8-16); CALCIUM LEVEL 8.1 MG/DL (8.8-10.2); CARBON DIOXIDE LEVEL 27 MEQ/L (21-32); CHLORIDE LEVEL 103 MEQ/L (98-107); CREATININE FOR GFR 7.27 MG/DL (0.70-1.30); GLOMERULAR FILTRATION RATE 7.7 (>35); GLUCOSE, FASTING 124 MG/DL (70-100); SODIUM LEVEL 138 MEQ/L (136-145)
[2017-06-07 05:55] LABS: BLOOD UREA NITROGEN 51 MG/DL (7-18); POTASSIUM SERUM 5.3 MEQ/L (3.5-5.1)
[2017-06-07] MEDS: HEPARIN SOD (PORCINE) 5000 UNITS/ML VIAL SC (06:44)
[2017-06-07] MEDS: VITAMIN D 1,000 INTERNATIONAL UNITS TABLET PO (08:21)
[2017-06-07] MEDS: PANTOPRAZOLE 40MG TAB (PROTONIX) PO ×2 (08:21→21:08)
[2017-06-07] MEDS: NS 1,000 ML IV (08:21)
[2017-06-07] MEDS: VITAMIN B COMPLEX/VIT C CAP PO (08:21)
[2017-06-07] MEDS: MULTIVITAMINS/MINERALS THERAP 1 TAB PO (08:21)
[2017-06-07] MEDS: methylPREDNISolone INJ 40 MG/1 ML VIAL (J2920) IV (08:22)
[2017-06-07] MEDS: (RENVELA) SEVELAMER **CARBONate** 800 MG TAB PO ×3 (08:22→17:17)
[2017-06-07] MEDS: AMIODARONE 200 MG TAB (PACERONE) PO (08:22)
[2017-06-07] MEDS: PIPERACILLIN/TAZOBACTAM SOD 2.25 GM in APPROPRIATE DILUENT 1 EA IV (11:29)
[2017-06-07] MEDS: CHECK TO SEE IF PATIENT IS RECEIVING DIALYSIS TODAY AND REFER TO THE VANCOMYCIN ORDER XX (15:55)
[2017-06-07] MEDS: HEPARIN SOD (PORCINE) 5000 UNITS/ML VIAL SQ (21:08)
[2017-06-07] MEDS: ASPIRIN 81 MG ENTERIC TAB PO (21:08)
[2017-06-07] MEDS: ROSUVASTATIN 10 MG TAB (CRESTOR) PO (21:08)
[2017-06-08] MEDS: PIPERACILLIN/TAZOBACTAM SOD 2.25 GM in APPROPRIATE DILUENT 1 EA IV (00:04)
[2017-06-08 05:15] LABS: BASO % 0.1 % (0.0-1.0); EOS # 0.1 10^3/uL (0.0-0.50); EOS % 0.8 % (0.0-3.0); HEMATOCRIT 30.6 % (42.0-52.0); HEMOGLOBIN 9.6 g/dl (14.0-18.0); IMMATURE GRANULOCYTE # 0.1 10^3/uL (0-0); IMMATURE GRANULOCYTE % 0.5 % (0-0); LYMPH # 0.6 10^3/uL (1.5-4.5); LYMPH % 5.9 % (24.0-44.0); MEAN CORPUSCULAR HEMOGLOBIN 30.9 pg (27.0-33.0); MEAN CORPUSCULAR HGB CONC 31.4 g/dl (32.0-36.5); MEAN CORPUSCULAR VOLUME 98.4 fl (80.0-96.0); MONO # 0.7 10^3/uL (0.0-0.8); MONO % 7.1 % (0.0-5.0); NEUTROPHILS # 8.1 10^3/uL (1.8-7.7); NEUTROPHILS % 85.6 % (36.0-66.0); PLATELET COUNT, AUTOMATED 122 10^3/uL (150-450); RED BLOOD COUNT 3.11 10^6/uL (4.30-6.10); RED CELL DISTRIBUTION WIDTH 16.2 % (11.5-14.5); WHITE BLOOD COUNT 9.5 10^3/uL (4.0-10.0)
[2017-06-08 05:39] LABS: ANION GAP 12 MEQ/L (8-16); BLOOD UREA NITROGEN 69 MG/DL (7-18); CALCIUM LEVEL 7.7 MG/DL (8.8-10.2); CARBON DIOXIDE LEVEL 23 MEQ/L (21-32); CHLORIDE LEVEL 104 MEQ/L (98-107); CREATININE FOR GFR 8.59 MG/DL (0.70-1.30); GLOMERULAR FILTRATION RATE 6.4 (>35); GLUCOSE, FASTING 125 MG/DL (70-100); SODIUM LEVEL 139 MEQ/L (136-145)
[2017-06-08 05:44] LABS: POTASSIUM SERUM 5.3 MEQ/L (3.5-5.1)
[2017-06-08] MEDS: AMIODARONE 200 MG TAB (PACERONE) PO (06:26)
[2017-06-08] MEDS: PANTOPRAZOLE 40MG TAB (PROTONIX) PO ×2 (06:26→21:21)
[2017-06-08] MEDS: (RENVELA) SEVELAMER **CARBONate** 800 MG TAB PO ×3 (06:26→17:01)
[2017-06-08] MEDS: MULTIVITAMINS/MINERALS THERAP 1 TAB PO (06:27)
[2017-06-08] MEDS: VITAMIN B COMPLEX/VIT C CAP PO (06:27)
[2017-06-08] MEDS: methylPREDNISolone INJ 40 MG/1 ML VIAL (J2920) IV (06:27)
[2017-06-08] MEDS: VITAMIN D 1,000 INTERNATIONAL UNITS TABLET PO (06:27)
[2017-06-08] MEDS: HEPARIN SOD (PORCINE) 5000 UNITS/ML VIAL SQ ×2 (08:16→21:22)
[2017-06-08] MEDS: VANCOMYCIN HCL 1,000 MG, VIAL MATE ADAPTER 1 EACH in D5W 250 ML IV (15:07)
[2017-06-08] MEDS: CHECK TO SEE IF PATIENT IS RECEIVING DIALYSIS TODAY AND REFER TO THE VANCOMYCIN ORDER XX (15:08)
[2017-06-08] MEDS: ROSUVASTATIN 10 MG TAB (CRESTOR) PO (21:21)
[2017-06-08] MEDS: ASPIRIN 81 MG ENTERIC TAB PO (21:21)
[2017-06-09 05:42] LABS: BASO % 0.3 % (0.0-1.0); EOS # 0.1 10^3/uL (0.0-0.50); HEMATOCRIT 31.1 % (42.0-52.0); HEMOGLOBIN 9.7 g/dl (14.0-18.0); IMMATURE GRANULOCYTE % 0.5 % (0-0); LYMPH # 0.6 10^3/uL (1.5-4.5); LYMPH % 7.7 % (24.0-44.0); MEAN CORPUSCULAR HEMOGLOBIN 30.1 pg (27.0-33.0); MEAN CORPUSCULAR HGB CONC 31.2 g/dl (32.0-36.5); MEAN CORPUSCULAR VOLUME 96.6 fl (80.0-96.0); MONO # 0.7 10^3/uL (0.0-0.8); MONO % 9.1 % (0.0-5.0); NEUTROPHILS # 5.9 10^3/uL (1.8-7.7); NEUTROPHILS % 81.4 % (36.0-66.0); PLATELET COUNT, AUTOMATED 133 10^3/uL (150-450); RED BLOOD COUNT 3.22 10^6/uL (4.30-6.10); RED CELL DISTRIBUTION WIDTH 15.9 % (11.5-14.5); WHITE BLOOD COUNT 7.3 10^3/uL (4.0-10.0)
[2017-06-09 06:22] LABS: ANION GAP 8 MEQ/L (8-16); BLOOD UREA NITROGEN 46 MG/DL (7-18); CALCIUM LEVEL 7.9 MG/DL (8.8-10.2); CARBON DIOXIDE LEVEL 29 MEQ/L (21-32); CHLORIDE LEVEL 98 MEQ/L (98-107); CREATININE FOR GFR 5.88 MG/DL (0.70-1.30); GLOMERULAR FILTRATION RATE 9.9 (>35); GLUCOSE, FASTING 98 MG/DL (70-100); POTASSIUM SERUM 4.4 MEQ/L (3.5-5.1); SODIUM LEVEL 135 MEQ/L (136-145)
[2017-06-09] MEDS: MULTIVITAMINS/MINERALS THERAP 1 TAB PO (08:26)
[2017-06-09] MEDS: VITAMIN B COMPLEX/VIT C CAP PO (08:26)
[2017-06-09] MEDS: VITAMIN D 1,000 INTERNATIONAL UNITS TABLET PO (08:26)
[2017-06-09] MEDS: HEPARIN SOD (PORCINE) 5000 UNITS/ML VIAL SQ ×2 (08:27→20:15)
[2017-06-09] MEDS: PANTOPRAZOLE 40MG TAB (PROTONIX) PO ×2 (08:27→20:14)
[2017-06-09] MEDS: methylPREDNISolone INJ 40 MG/1 ML VIAL (J2920) IV ×2 (08:27→20:15)
[2017-06-09] MEDS: AMIODARONE 200 MG TAB (PACERONE) PO (08:27)
[2017-06-09] MEDS: (RENVELA) SEVELAMER **CARBONate** 800 MG TAB PO ×3 (08:27→17:35)
[2017-06-09] MEDS: EUCERIN 120GM CREAM TOP ×2 (12:22→20:15)
[2017-06-09] MEDS: CHECK TO SEE IF PATIENT IS RECEIVING DIALYSIS TODAY AND REFER TO THE VANCOMYCIN ORDER XX (16:00)
[2017-06-09 16:02] LABS: C REACTIVE PROTEIN QUANTITATIV 4.01 MG/DL (0.00-0.30); RHEUMATOID FACTOR QUANT < 10.0 IU/ML (0-15.0)
[2017-06-09 17:07] LABS: ERYTHROCYTE SEDIMENTATION RATE 58 mm/hr (0-20)
[2017-06-09] MEDS: ROSUVASTATIN 10 MG TAB (CRESTOR) PO (20:14)
[2017-06-09] MEDS: ASPIRIN 81 MG ENTERIC TAB PO (20:15)
[2017-06-10 06:57] LABS: HEMATOCRIT 30.5 % (42.0-52.0); HEMOGLOBIN 9.7 g/dl (14.0-18.0); IMMATURE GRANULOCYTE # 0.1 10^3/uL (0-0); LYMPH # 0.3 10^3/uL (1.5-4.5); LYMPH % 4.8 % (24.0-44.0); MEAN CORPUSCULAR HEMOGLOBIN 30.1 pg (27.0-33.0); MEAN CORPUSCULAR HGB CONC 31.8 g/dl (32.0-36.5); MEAN CORPUSCULAR VOLUME 94.7 fl (80.0-96.0); MONO # 0.4 10^3/uL (0.0-0.8); MONO % 6.1 % (0.0-5.0); NEUTROPHILS # 6.1 10^3/uL (1.8-7.7); NEUTROPHILS % 88.1 % (36.0-66.0); PLATELET COUNT, AUTOMATED 138 10^3/uL (150-450); RED BLOOD COUNT 3.22 10^6/uL (4.30-6.10); RED CELL DISTRIBUTION WIDTH 15.7 % (11.5-14.5); WHITE BLOOD COUNT 6.9 10^3/uL (4.0-10.0)
[2017-06-10 07:19] LABS: ANION GAP 9 MEQ/L (8-16); BLOOD UREA NITROGEN 74 MG/DL (7-18); CARBON DIOXIDE LEVEL 28 MEQ/L (21-32); CHLORIDE LEVEL 99 MEQ/L (98-107); CREATININE FOR GFR 7.71 MG/DL (0.70-1.30); GLOMERULAR FILTRATION RATE 7.2 (>35); GLUCOSE, FASTING 131 MG/DL (70-100); POTASSIUM SERUM 4.9 MEQ/L (3.5-5.1); SODIUM LEVEL 136 MEQ/L (136-145); VANCOMYCIN RANDOM 15.6 UG/ML
[2017-06-10] MEDS: methylPREDNISolone INJ 40 MG/1 ML VIAL (J2920) IV ×2 (07:44→20:37)
[2017-06-10] MEDS: (RENVELA) SEVELAMER **CARBONate** 800 MG TAB PO ×3 (07:44→18:57)
[2017-06-10] MEDS: VITAMIN D 1,000 INTERNATIONAL UNITS TABLET PO (07:44)
[2017-06-10] MEDS: VITAMIN B COMPLEX/VIT C CAP PO (07:44)
[2017-06-10] MEDS: PANTOPRAZOLE 40MG TAB (PROTONIX) PO ×2 (07:45→20:37)
[2017-06-10] MEDS: HEPARIN SOD (PORCINE) 5000 UNITS/ML VIAL SQ ×2 (07:45→20:37)
[2017-06-10] MEDS: AMIODARONE 200 MG TAB (PACERONE) PO (07:45)
[2017-06-10] MEDS: MULTIVITAMINS/MINERALS THERAP 1 TAB PO (07:45)
[2017-06-10] MEDS: EUCERIN 120GM CREAM TOP ×2 (07:46→20:38)
[2017-06-10] MEDS: VANCOMYCIN HCL 1,000 MG, VIAL MATE ADAPTER 1 EACH in D5W 250 ML IV (14:29)
[2017-06-10] MEDS: CHECK TO SEE IF PATIENT IS RECEIVING DIALYSIS TODAY AND REFER TO THE VANCOMYCIN ORDER XX (14:29)
[2017-06-10] MEDS ORDERED: PROPOFOL 200 MG/20 ML VIAL As Ordered (16:34)
[2017-06-10] MEDS ORDERED: LIDOCAINE 2% INJ 100 MG/5 ML SDV (FOR ANES.) As Ordered (16:34)
[2017-06-10] MEDS ORDERED: MIDAZOLAM INJ 2 MG/2 ML VIAL (J2250) As Ordered (16:35)
[2017-06-10] MEDS ORDERED: fentaNYL 100 MCG/2 ML INJECTION (J3010) As Ordered (16:35)
[2017-06-10] MEDS ORDERED: CETACAINE SPRAY 5GM As Ordered (16:52)
[2017-06-10] MEDS: NS 1,000 ML IV (18:15)
[2017-06-10] MEDS ORDERED: ONDANSETRON 4MG/2ML VIAL (J2405) IV (18:15)
[2017-06-10] MEDS: ASPIRIN 81 MG ENTERIC TAB PO (20:37)
[2017-06-10] MEDS: ROSUVASTATIN 10 MG TAB (CRESTOR) PO (20:37)
[2017-06-11 08:01] LABS: BASO % 0.1 % (0.0-1.0); HEMATOCRIT 32.6 % (42.0-52.0); HEMOGLOBIN 10.4 g/dl (14.0-18.0); IMMATURE GRANULOCYTE # 0.1 10^3/uL (0-0); IMMATURE GRANULOCYTE % 0.9 % (0-0); LYMPH # 0.4 10^3/uL (1.5-4.5); LYMPH % 4.4 % (24.0-44.0); MEAN CORPUSCULAR HEMOGLOBIN 30.8 pg (27.0-33.0); MEAN CORPUSCULAR HGB CONC 31.9 g/dl (32.0-36.5); MEAN CORPUSCULAR VOLUME 96.4 fl (80.0-96.0); MONO # 0.5 10^3/uL (0.0-0.8); MONO % 5.4 % (0.0-5.0); NEUTROPHILS # 8.1 10^3/uL (1.8-7.7); NEUTROPHILS % 89.2 % (36.0-66.0); PLATELET COUNT, AUTOMATED 151 10^3/uL (150-450); RED BLOOD COUNT 3.38 10^6/uL (4.30-6.10); RED CELL DISTRIBUTION WIDTH 15.9 % (11.5-14.5); WHITE BLOOD COUNT 9.1 10^3/uL (4.0-10.0)
[2017-06-11 08:34] LABS: ALBUMIN 2.9 GM/DL (3.2-5.2); ALBUMIN/GLOBULIN RATIO 0.83 (1.00-1.93); ALKALINE PHOSPHATASE 90 U/L (45-117); ALT/SGPT 28 U/L (12-78); ANION GAP 5 MEQ/L (8-16); AST/SGOT 20 U/L (7-37); BILIRUBIN,TOTAL 0.3 MG/DL (0.2-1.0); BLOOD UREA NITROGEN 47 MG/DL (7-18); CALCIUM LEVEL 8.3 MG/DL (8.8-10.2); CARBON DIOXIDE LEVEL 30 MEQ/L (21-32); CHLORIDE LEVEL 100 MEQ/L (98-107); CREATININE FOR GFR 5.26 MG/DL (0.70-1.30); GLOMERULAR FILTRATION RATE 11.2 (>35); GLUCOSE, FASTING 118 MG/DL (70-100); MAGNESIUM LEVEL 2.4 MG/DL (1.8-2.4); POTASSIUM SERUM 4.9 MEQ/L (3.5-5.1); SODIUM LEVEL 135 MEQ/L (136-145); TOTAL PROTEIN 6.4 GM/DL (6.4-8.2)
[2017-06-11] MEDS: MULTIVITAMINS/MINERALS THERAP 1 TAB PO (09:26)
[2017-06-11] MEDS: VITAMIN B COMPLEX/VIT C CAP PO (09:26)
[2017-06-11] MEDS: PANTOPRAZOLE 40MG TAB (PROTONIX) PO ×2 (09:26→21:23)
[2017-06-11] MEDS: AMIODARONE 200 MG TAB (PACERONE) PO (09:26)
[2017-06-11] MEDS: VITAMIN D 1,000 INTERNATIONAL UNITS TABLET PO (09:26)
[2017-06-11] MEDS: (RENVELA) SEVELAMER **CARBONate** 800 MG TAB PO ×3 (09:26→18:37)
[2017-06-11] MEDS: methylPREDNISolone INJ 40 MG/1 ML VIAL (J2920) IV ×2 (09:27→21:23)
[2017-06-11] MEDS: HEPARIN SOD (PORCINE) 5000 UNITS/ML VIAL SQ ×2 (09:27→21:24)
[2017-06-11] MEDS: EUCERIN 120GM CREAM TOP ×2 (09:28→21:24)
[2017-06-11] MEDS ORDERED: DARBEPOETIN 100 MCG/0.5 ML *DIALYSIS* SYRINGE (J0882) IV (12:15)
[2017-06-11] MEDS: CHECK TO SEE IF PATIENT IS RECEIVING DIALYSIS TODAY AND REFER TO THE VANCOMYCIN ORDER XX (16:00)
[2017-06-11] MEDS: ASPIRIN 81 MG ENTERIC TAB PO (21:23)
[2017-06-11] MEDS: ROSUVASTATIN 10 MG TAB (CRESTOR) PO (21:23)
[2017-06-12] MEDS: PANTOPRAZOLE 40MG TAB (PROTONIX) PO ×2 (06:26→21:18)
[2017-06-12] MEDS: VITAMIN B COMPLEX/VIT C CAP PO (06:26)
[2017-06-12] MEDS: VITAMIN D 1,000 INTERNATIONAL UNITS TABLET PO (06:26)
[2017-06-12] MEDS: (RENVELA) SEVELAMER **CARBONate** 800 MG TAB PO ×3 (06:26→18:24)
[2017-06-12] MEDS: MULTIVITAMINS/MINERALS THERAP 1 TAB PO (06:26)
[2017-06-12] MEDS: AMIODARONE 200 MG TAB (PACERONE) PO (06:27)
[2017-06-12] MEDS: HEPARIN SOD (PORCINE) 5000 UNITS/ML VIAL SQ ×2 (06:27→21:18)
[2017-06-12 07:26] LABS: BASO % 0.2 % (0.0-1.0); HEMATOCRIT 37.3 % (42.0-52.0); HEMOGLOBIN 11.8 g/dl (14.0-18.0); IMMATURE GRANULOCYTE # 0.2 10^3/uL (0-0); IMMATURE GRANULOCYTE % 1.3 % (0-0); LYMPH # 0.5 10^3/uL (1.5-4.5); LYMPH % 3.9 % (24.0-44.0); MEAN CORPUSCULAR HEMOGLOBIN 30.6 pg (27.0-33.0); MEAN CORPUSCULAR HGB CONC 31.6 g/dl (32.0-36.5); MEAN CORPUSCULAR VOLUME 96.9 fl (80.0-96.0); MONO # 0.5 10^3/uL (0.0-0.8); MONO % 4.1 % (0.0-5.0); NEUTROPHILS # 11.3 10^3/uL (1.8-7.7); NEUTROPHILS % 90.5 % (36.0-66.0); PLATELET COUNT, AUTOMATED 184 10^3/uL (150-450); RED BLOOD COUNT 3.85 10^6/uL (4.30-6.10); WHITE BLOOD COUNT 12.4 10^3/uL (4.0-10.0)
[2017-06-12 07:42] LABS: ALBUMIN 3.3 GM/DL (3.2-5.2); ALBUMIN/GLOBULIN RATIO 0.89 (1.00-1.93); ALKALINE PHOSPHATASE 106 U/L (45-117); ALT/SGPT 28 U/L (12-78); ANION GAP 11 MEQ/L (8-16); AST/SGOT 17 U/L (7-37); BILIRUBIN,TOTAL 0.4 MG/DL (0.2-1.0); BLOOD UREA NITROGEN 77 MG/DL (7-18); CALCIUM LEVEL 8.4 MG/DL (8.8-10.2); CARBON DIOXIDE LEVEL 23 MEQ/L (21-32); CHLORIDE LEVEL 100 MEQ/L (98-107); CREATININE FOR GFR 6.93 MG/DL (0.70-1.30); GLOMERULAR FILTRATION RATE 8.2 (>35); GLUCOSE, FASTING 177 MG/DL (70-100); MAGNESIUM LEVEL 2.4 MG/DL (1.8-2.4); POTASSIUM SERUM 5.1 MEQ/L (3.5-5.1); SODIUM LEVEL 134 MEQ/L (136-145)
[2017-06-12] MEDS: methylPREDNISolone INJ 40 MG/1 ML VIAL (J2920) IV ×2 (07:51→21:18)
[2017-06-12] MEDS: EUCERIN 120GM CREAM TOP ×2 (07:51→21:00)
[2017-06-12 11:20] LABS: VANCOMYCIN RANDOM 19.2 UG/ML
[2017-06-12] MEDS ORDERED: GENTAMICIN 160 MG in D5W 50 ML IV (12:00)
[2017-06-12] MEDS ORDERED: ISOVUE-300 61% 50ML VIAL (Q9967) As Ordered (15:10)
[2017-06-12] MEDS ORDERED: LIDOCAINE 2% MDV 20 ML VIAL As Ordered (15:10)
[2017-06-12] MEDS: LIDOCAINE W/EPINEPHRINE 1% 20ML VIAL As Ordered (15:14)
[2017-06-12] MEDS: CHECK TO SEE IF PATIENT IS RECEIVING DIALYSIS TODAY AND REFER TO THE VANCOMYCIN ORDER XX (17:09)
[2017-06-12] MEDS: VANCOMYCIN HCL 1,000 MG, VIAL MATE ADAPTER 1 EACH in D5W 250 ML IV (17:09)
[2017-06-12] MEDS: GENTAMICIN 160 MG in D5W 50 ML IV (18:24)
[2017-06-12] MEDS: ROSUVASTATIN 10 MG TAB (CRESTOR) PO (21:18)
[2017-06-12] MEDS: ASPIRIN 81 MG ENTERIC TAB PO (21:18)
[2017-06-13 07:29] LABS: ALBUMIN 3.4 GM/DL (3.2-5.2); ALBUMIN/GLOBULIN RATIO 0.94 (1.00-1.93); ALKALINE PHOSPHATASE 102 U/L (45-117); ALT/SGPT 31 U/L (12-78); ANION GAP 10 MEQ/L (8-16); AST/SGOT 26 U/L (7-37); BILIRUBIN,TOTAL 0.4 MG/DL (0.2-1.0); BLOOD UREA NITROGEN 52 MG/DL (7-18); CALCIUM LEVEL 8.5 MG/DL (8.8-10.2); CARBON DIOXIDE LEVEL 26 MEQ/L (21-32); CHLORIDE LEVEL 102 MEQ/L (98-107); GLOMERULAR FILTRATION RATE 11.6 (>35); GLUCOSE, FASTING 114 MG/DL (70-100); MAGNESIUM LEVEL 2.2 MG/DL (1.8-2.4); SODIUM LEVEL 138 MEQ/L (136-145)
[2017-06-13 07:32] LABS: POTASSIUM SERUM 5.5 MEQ/L (3.5-5.1)
[2017-06-13] MEDS: VITAMIN D 1,000 INTERNATIONAL UNITS TABLET PO (08:31)
[2017-06-13] MEDS: PANTOPRAZOLE 40MG TAB (PROTONIX) PO (08:31)
[2017-06-13] MEDS: (RENVELA) SEVELAMER **CARBONate** 800 MG TAB PO ×2 (08:31→12:30)
[2017-06-13] MEDS: MULTIVITAMINS/MINERALS THERAP 1 TAB PO (08:31)
[2017-06-13] MEDS: EUCERIN 120GM CREAM TOP (08:31)
[2017-06-13] MEDS: VITAMIN B COMPLEX/VIT C CAP PO (08:31)
[2017-06-13] MEDS: AMIODARONE 200 MG TAB (PACERONE) PO (08:31)
[2017-06-13] MEDS: HEPARIN SOD (PORCINE) 5000 UNITS/ML VIAL SQ (08:32)
[2017-06-13] MEDS: methylPREDNISolone INJ 40 MG/1 ML VIAL (J2920) IV (08:32)
== END 2017-06-13 12:45 | disposition home or self-care (01) | DRG 853 ==
LOC: M MS4PR 06-09 20:50 → M PCU 06-06 14:19 → M ED 19:48 → M ED INP 21:57
PROC: B246ZZ4 Ultrasonography of Right and Left Heart, Transesophageal (ICD-10-PCS; 2017-06-10 15:00)
PROC: 5A1D70Z Performance of Urinary Filtration, Intermittent, Less than 6 Hours Per Day (ICD-10-PCS; principal; 2017-06-10 17:19)
PROC: 0HBDXZX Excision of Right Lower Arm Skin, External Approach, Diagnostic (ICD-10-PCS; 2017-06-10 17:19)
PROC: 0HB1XZX Excision of Face Skin, External Approach, Diagnostic (ICD-10-PCS; 2017-06-10 17:19)
PROC: 05763DZ Dilation of Left Subclavian Vein with Intraluminal Device, Percutaneous Approach (ICD-10-PCS; 2017-06-10 17:19)
PROC: 05743DZ Dilation of Left Innominate Vein with Intraluminal Device, Percutaneous Approach (ICD-10-PCS; 2017-06-10 17:19)
PROC: 05L Upper Veins, Occlusion (ICD-10-PCS; 2017-06-10 17:19)
DX: A41.81 Sepsis due to Enterococcus (principal); J18.9 Pneumonia, unspecified organism; N18.6 End stage renal disease; R65.21 Severe sepsis with septic shock; I50.42 Chronic combined systolic (congestive) and diastolic (congestive) heart failure; D63.1 Anemia in chronic kidney disease; I25.10 Atherosclerotic heart disease of native coronary artery without angina pectoris; J44.9 Chronic obstructive pulmonary disease, unspecified; K21.9 Gastro-esophageal reflux disease without esophagitis; E78.5 Hyperlipidemia, unspecified; Z66 Do not resuscitate; E87.5 Hyperkalemia; C44.629 Squamous cell carcinoma of skin of left upper limb, including shoulder; C44.320 Squamous cell carcinoma of skin of unspecified parts of face; I48.91 Unspecified atrial fibrillation; D69.6 Thrombocytopenia, unspecified; M19.90 Unspecified osteoarthritis, unspecified site; G47.33 Obstructive sleep apnea (adult) (pediatric); Z95.3 Presence of xenogenic heart valve; Z99.2 Dependence on renal dialysis; Z79.82 Long term (current) use of aspirin; Z79.899 Other long term (current) drug therapy; Z87.891 Personal history of nicotine dependence; I25.2 Old myocardial infarction; Z95.5 Presence of coronary angioplasty implant and graft; Z91.040 Latex allergy status; Z88.8 Allergy status to other drugs, medicaments and biological substances; Z88.1 Allergy status to other antibiotic agents; Z99.81 Dependence on supplemental oxygen; Z95.0 Presence of cardiac pacemaker

== ENCOUNTER 2017-08-01 12:09 | Emergency (ER) | payer MEDICARE, BC, OTHER ==
[2017-08-01 12:45] LABS: HEMOGLOBIN 9.1 g/dl (14.0-18.0); MEAN CORPUSCULAR HGB CONC 31.4 g/dl (32.0-36.5); MEAN CORPUSCULAR VOLUME 98.6 fl (80.0-96.0); PLATELET COUNT, AUTOMATED 142 10^3/uL (150-450); RED BLOOD COUNT 2.94 10^6/uL (4.30-6.10); RED CELL DISTRIBUTION WIDTH 15.4 % (11.5-14.5); WHITE BLOOD COUNT 6.3 10^3/uL (4.0-10.0)
== END 2017-08-01 13:52 | disposition home or self-care (01) ==
LOC: M ED 12:09
DX: T82.838A Hemorrhage due to vascular prosthetic devices, implants and grafts, initial encounter (principal); Y83.2 Surgical operation with anastomosis, bypass or graft as the cause of abnormal reaction of the patient, or of later complication, without mention of misadventure at the time of the procedure; N18.6 End stage renal disease; Z99.2 Dependence on renal dialysis; I11.9 Hypertensive heart disease without heart failure; E78.9 Disorder of lipoprotein metabolism, unspecified; J44.9 Chronic obstructive pulmonary disease, unspecified; G47.30 Sleep apnea, unspecified; Z95.5 Presence of coronary angioplasty implant and graft; Z95.810 Presence of automatic (implantable) cardiac defibrillator; Z88.3 Allergy status to other anti-infective agents; Z88.8 Allergy status to other drugs, medicaments and biological substances; Z91.040 Latex allergy status; Z91.048 Other nonmedicinal substance allergy status; Z79.899 Other long term (current) drug therapy; Z79.82 Long term (current) use of aspirin
CPT/HCPCS: 85027

== ENCOUNTER 2017-08-26 17:09 | Inpatient (IN) | payer MEDICARE, BC, OTHER ==
[2017-08-26 18:29] LABS: BASO # 0.1 10^3/uL (0.0-0.2); BASO % 0.6 % (0.0-1.0); EOS # 0.3 10^3/uL (0.0-0.50); EOS % 3.5 % (0.0-3.0); HEMATOCRIT 31.1 % (42.0-52.0); HEMOGLOBIN 9.5 g/dl (13.5-17.5); IMMATURE GRANULOCYTE % 0.8 % (0-3.0); LYMPH # 0.6 10^3/uL (1.5-4.5); LYMPH % 8.1 % (24.0-44.0); MEAN CORPUSCULAR HEMOGLOBIN 30.2 pg (27.0-33.0); MEAN CORPUSCULAR HGB CONC 30.5 g/dl (32.0-36.5); MEAN CORPUSCULAR VOLUME 98.7 fl (80.0-96.0); MONO # 0.8 10^3/uL (0.0-0.8); MONO % 10.6 % (0.0-5.0); NEUTROPHILS % 76.4 % (36.0-66.0); PLATELET COUNT, AUTOMATED 222 10^3/uL (150-450); RED BLOOD COUNT 3.15 10^6/uL (4.30-6.10); RED CELL DISTRIBUTION WIDTH 16.9 % (11.5-14.5); WHITE BLOOD COUNT 7.8 10^3/uL (4.0-10.0)
[2017-08-26 18:39] LABS: PROTHROMBIN TIME 13.3 SECONDS (12.4-14.5)
[2017-08-26 18:57] LABS: ANION GAP 4 MEQ/L (8-16); BLOOD UREA NITROGEN 17 MG/DL (7-18); CALCIUM LEVEL 8.5 MG/DL (8.8-10.2); CARBON DIOXIDE LEVEL 37 MEQ/L (21-32); CHLORIDE LEVEL 100 MEQ/L (98-107); CREATININE FOR GFR 4.38 MG/DL (0.70-1.30); GLOMERULAR FILTRATION RATE 13.9 (>35); GLUCOSE, FASTING 94 MG/DL (70-100); SODIUM LEVEL 141 MEQ/L (136-145)
[2017-08-26 19:59] LABS: IMMEDIATE SPIN CROSSMATCH 1 1
[2017-08-26] MEDS ORDERED: SLF 3 ML SYR IV (21:30)
[2017-08-26] MEDS: ASPIRIN 81 MG ENTERIC TAB PO (21:45)
[2017-08-26] MEDS: PANTOPRAZOLE 40MG TAB (PROTONIX) PO (21:45)
[2017-08-26] MEDS: ROSUVASTATIN 10 MG TAB (CRESTOR) PO (21:45)
[2017-08-26] MEDS: SLF 3 ML SYR IV (21:46)
[2017-08-27 00:52] LABS: HEMATOCRIT 27.9 % (42.0-52.0); HEMOGLOBIN 8.6 g/dl (13.5-17.5); MEAN CORPUSCULAR HEMOGLOBIN 29.7 pg (27.0-33.0); MEAN CORPUSCULAR HGB CONC 30.8 g/dl (32.0-36.5); MEAN CORPUSCULAR VOLUME 96.2 fl (80.0-96.0); PLATELET COUNT, AUTOMATED 171 10^3/uL (150-450); RED CELL DISTRIBUTION WIDTH 16.9 % (11.5-14.5); WHITE BLOOD COUNT 7.8 10^3/uL (4.0-10.0)
[2017-08-27 05:51] LABS: HEMATOCRIT 27.8 % (42.0-52.0); HEMOGLOBIN 8.8 g/dl (13.5-17.5); MEAN CORPUSCULAR HEMOGLOBIN 30.6 pg (27.0-33.0); MEAN CORPUSCULAR HGB CONC 31.7 g/dl (32.0-36.5); MEAN CORPUSCULAR VOLUME 96.5 fl (80.0-96.0); PLATELET COUNT, AUTOMATED 170 10^3/uL (150-450); RED BLOOD COUNT 2.88 10^6/uL (4.30-6.10); RED CELL DISTRIBUTION WIDTH 16.9 % (11.5-14.5); WHITE BLOOD COUNT 8.5 10^3/uL (4.0-10.0)
[2017-08-27] MEDS: SLF 3 ML SYR IV ×3 (05:56→20:57)
[2017-08-27 06:18] LABS: ANION GAP 6 MEQ/L (8-16); BLOOD UREA NITROGEN 26 MG/DL (7-18); CALCIUM LEVEL 8.1 MG/DL (8.8-10.2); CARBON DIOXIDE LEVEL 33 MEQ/L (21-32); CHLORIDE LEVEL 100 MEQ/L (98-107); CREATININE FOR GFR 5.54 MG/DL (0.70-1.30); GLOMERULAR FILTRATION RATE 10.6 (>35); GLUCOSE, FASTING 88 MG/DL (70-100); MAGNESIUM LEVEL 2.1 MG/DL (1.8-2.4); PHOSPHORUS LEVEL 4.9 MG/DL (2.5-4.9); POTASSIUM SERUM 4.5 MEQ/L (3.5-5.1); SODIUM LEVEL 139 MEQ/L (136-145)
[2017-08-27] MEDS ORDERED: ANORO ELLIPTA (PATIENT'S OWN MED) INH (09:00)
[2017-08-27] MEDS ORDERED: IRON SUCROSE 100MG 5ML VIAL (J1756 PER 1MG) IV (09:00)
[2017-08-27] MEDS: PANTOPRAZOLE 40MG TAB (PROTONIX) PO ×2 (09:13→20:56)
[2017-08-27] MEDS: VITAMIN B COMPLEX/VIT C CAP PO (09:14)
[2017-08-27] MEDS: AMIODARONE 200 MG TAB (PACERONE) PO (09:14)
[2017-08-27] MEDS: VITAMIN D 1,000 INTERNATIONAL UNITS TABLET PO (09:14)
[2017-08-27] MEDS: (RENVELA) SEVELAMER **CARBONate** 800 MG TAB PO ×3 (09:14→17:28)
[2017-08-27 09:34] LABS: FERRITIN 500 NG/ML (26-388); IRON (FE) 40 UG/DL (65-175); PERCENT SATURATION 16.7 % (19.7-50.0); TOTAL IRON BINDING CAPACITY 240 UG/DL (250-450)
[2017-08-27 12:14] LABS: HEMATOCRIT 28.8 % (42.0-52.0); HEMOGLOBIN 8.9 g/dl (13.5-17.5)
[2017-08-27 18:29] LABS: HEMATOCRIT 28.5 % (42.0-52.0); HEMOGLOBIN 8.8 g/dl (13.5-17.5)
[2017-08-27] MEDS: ASPIRIN 81 MG ENTERIC TAB PO (20:56)
[2017-08-27] MEDS: ROSUVASTATIN 10 MG TAB (CRESTOR) PO (20:56)
[2017-08-28 00:18] LABS: HEMOGLOBIN 8.7 g/dl (13.5-17.5)
[2017-08-28 05:53] LABS: HEMATOCRIT 26.4 % (42.0-52.0); HEMOGLOBIN 8.2 g/dl (13.5-17.5)
[2017-08-28 06:08] LABS: ANION GAP 8 MEQ/L (8-16); BLOOD UREA NITROGEN 46 MG/DL (7-18); CALCIUM LEVEL 7.9 MG/DL (8.8-10.2); CARBON DIOXIDE LEVEL 32 MEQ/L (21-32); CHLORIDE LEVEL 98 MEQ/L (98-107); CREATININE FOR GFR 7.45 MG/DL (0.70-1.30); GLOMERULAR FILTRATION RATE 7.5 (>35); GLUCOSE, FASTING 96 MG/DL (70-100); MAGNESIUM LEVEL 2.5 MG/DL (1.8-2.4); SODIUM LEVEL 138 MEQ/L (136-145)
[2017-08-28] MEDS ORDERED: HEPARIN 1,000 UNITS/ML 10ML VIAL (FOR RADIOLOGY& DIALYSIS ONLY) As Ordered (06:34)
[2017-08-28] MEDS ORDERED: LIDOCAINE 2% MDV 20 ML VIAL As Ordered (06:34)
[2017-08-28] MEDS ORDERED: DARBEPOETIN 100 MCG/0.5 ML *DIALYSIS* SYRINGE (J0882) IV (08:00)
[2017-08-28] MEDS: VITAMIN D 1,000 INTERNATIONAL UNITS TABLET PO (09:22)
[2017-08-28] MEDS: (RENVELA) SEVELAMER **CARBONate** 800 MG TAB PO ×3 (09:22→19:56)
[2017-08-28] MEDS: AMIODARONE 200 MG TAB (PACERONE) PO (09:22)
[2017-08-28] MEDS: PANTOPRAZOLE 40MG TAB (PROTONIX) PO ×2 (09:22→19:57)
[2017-08-28] MEDS: VITAMIN B COMPLEX/VIT C CAP PO (09:22)
[2017-08-28] MEDS: SLF 3 ML SYR IV ×3 (09:22→21:01)
[2017-08-28 12:15] LABS: HEMATOCRIT 28.7 % (42.0-52.0); HEMOGLOBIN 8.9 g/dl (13.5-17.5)
[2017-08-28] MEDS ORDERED: HEPARIN 1,000 UNITS/ML 10ML VIAL (FOR RADIOLOGY& DIALYSIS ONLY) XX (16:00)
[2017-08-28 16:17] LABS: IMMEDIATE SPIN CROSSMATCH 1 1
[2017-08-28 18:03] LABS: HEMATOCRIT 26.6 % (42.0-52.0); HEMOGLOBIN 8.4 g/dl (13.5-17.5)
[2017-08-28] MEDS: ACETAMINOPHEN TAB 650MG DOSE (2X325MG) PO (19:56)
[2017-08-28] MEDS: ASPIRIN 81 MG ENTERIC TAB PO (19:57)
[2017-08-28] MEDS: ROSUVASTATIN 10 MG TAB (CRESTOR) PO (19:57)
[2017-08-29] MEDS ORDERED: ACETAMINOPHEN TAB 650MG DOSE (2X325MG) PO (01:15)
[2017-08-29 06:23] LABS: HEMATOCRIT 28.5 % (42.0-52.0)
[2017-08-29 06:42] LABS: MAGNESIUM LEVEL 2.2 MG/DL (1.8-2.4)
[2017-08-29 06:47] LABS: ANION GAP 8 MEQ/L (8-16); BLOOD UREA NITROGEN 26 MG/DL (7-18); CALCIUM LEVEL 7.9 MG/DL (8.8-10.2); CARBON DIOXIDE LEVEL 31 MEQ/L (21-32); CHLORIDE LEVEL 101 MEQ/L (98-107); CREATININE FOR GFR 4.59 MG/DL (0.70-1.30); GLOMERULAR FILTRATION RATE 13.2 (>35); GLUCOSE, FASTING 98 MG/DL (70-100); POTASSIUM SERUM 4.8 MEQ/L (3.5-5.1); SODIUM LEVEL 140 MEQ/L (136-145)
[2017-08-29] MEDS: SLF 3 ML SYR IV (06:51)
[2017-08-29] MEDS: VITAMIN D 1,000 INTERNATIONAL UNITS TABLET PO (08:56)
[2017-08-29] MEDS: AMIODARONE 200 MG TAB (PACERONE) PO (08:56)
[2017-08-29] MEDS: VITAMIN B COMPLEX/VIT C CAP PO (08:56)
[2017-08-29] MEDS: PANTOPRAZOLE 40MG TAB (PROTONIX) PO (08:57)
[2017-08-29] MEDS: (RENVELA) SEVELAMER **CARBONate** 800 MG TAB PO (08:57)
== END 2017-08-29 11:13 | disposition home or self-care (01) | DRG 314 ==
LOC: M MS5PR 08-28 11:44 → M ED 17:09 → M ED INP 19:07 → M PCU 20:51
PROVIDERS: Orthopaedic Surgery
PROC: 30253N1 (ICD-10-PCS; 2017-08-26)
PROC: 05HM33Z Insertion of Infusion Device into Right Internal Jugular Vein, Percutaneous Approach (ICD-10-PCS; principal; 2017-08-28)
PROC: 5A1D70Z Performance of Urinary Filtration, Intermittent, Less than 6 Hours Per Day (ICD-10-PCS; 2017-08-28)
DX: T82.838A Hemorrhage due to vascular prosthetic devices, implants and grafts, initial encounter (principal); N18.6 End stage renal disease; I50.22 Chronic systolic (congestive) heart failure; I13.2 Hypertensive heart and chronic kidney disease with heart failure and with stage 5 chronic kidney disease, or end stage renal disease; D62 Acute posthemorrhagic anemia; I27.20 Pulmonary hypertension, unspecified; I25.10 Atherosclerotic heart disease of native coronary artery without angina pectoris; I25.2 Old myocardial infarction; E78.5 Hyperlipidemia, unspecified; K21.9 Gastro-esophageal reflux disease without esophagitis; I11.0 Hypertensive heart disease with heart failure; J44.9 Chronic obstructive pulmonary disease, unspecified; G47.33 Obstructive sleep apnea (adult) (pediatric); Z79.82 Long term (current) use of aspirin; Z79.899 Other long term (current) drug therapy; Z91.040 Latex allergy status; Z88.1 Allergy status to other antibiotic agents; Z88.8 Allergy status to other drugs, medicaments and biological substances; Z85.59 Personal history of malignant neoplasm of other urinary tract organ; Z99.2 Dependence on renal dialysis; Z85.828 Personal history of other malignant neoplasm of skin; Z95.3 Presence of xenogenic heart valve; Z95.810 Presence of automatic (implantable) cardiac defibrillator; Z87.891 Personal history of nicotine dependence; Y83.1 Surgical operation with implant of artificial internal device as the cause of abnormal reaction of the patient, or of later complication, without mention of misadventure at the time of the procedure